=== PATIENT | female | born 1955 | race Caucasian/White ===

== ENCOUNTER 2019-03-31 12:10 | Emergency (ER) | payer OTHER ==
[~2019-03-31] VITALS: Ht 152.4 cm; Wt 54.4 kg
[~2019-03-31 12:10] MED LIST: ALPR.5 PO; AMOX500 PO; ASPI325 PO; AZIT250 PO; Aspir 8181 MG PO; Atrovent Inha12.9 GM; BUDE6HFA INH; Daily Multiple1 EACH PO; Esgic Tablet1 EACH PO; FLUSAL1005 IH; LEVA.63IS IH; LEVA.63IS INH; LISI5 PO; MEDR2.5 PO; MELATONIN 1 MG1 EACH PO; OXYACE5T PO; OXYC10ER PO; OXYC5 PO; PREG25 PO; PROM25 PO; Roxicodone5 MG PO; TRAM50 PO; Zithromax250 MG PO; Zofran Odt4 MG SL
[2019-03-31] MEDS ORDERED: METO50ER (13:13)
[2019-03-31 13:16] LABS: BASOPHILS ABSOLUTE AUTO 0.05 K/mm3 (0.00-0.23); BASOPHILS PERCENT AUTO 0 % (0-2); EOSINOPHILS PERCENT AUTO 1 % (0-6); Hematocrit 46.5 % (33.0-51.0); Hemoglobin 15.7 g/dL (11.5-16.0); IMMATURE GRAN ABSOLUTE AUTO 0.02 K/mm3 (0.00-0.10); IMMATURE GRAN PERCENT AUTO 0 % (0-1); LYMPHOCYTES ABSOLUTE AUTO 3.73 K/mm3 (0.84-5.20); LYMPHOCYTES PERCENT AUTO 33 % (21-46); MONOCYTES ABSOLUTE AUTO 1.16 K/mm3 (0.16-1.47); MONOCYTES PERCENT AUTO 10 % (4-13); Mean Corpuscular HGB Conc 33.8 g/dL (31.5-36.5); Mean Corpuscular Volume 95 fL (80-100); NEUTROPHILS PERCENT AUTO 56 % (41-73); Platelet Count 309 K/mm3 (150-400); RDW Coefficient Variation 12.7 % (11.7-14.2); RDW Standard Deviation 44.3 fL (35.1-46.3); White Blood Cell Count 11.46 K/mm3 (4.00-11.30)
[2019-03-31 13:36] LABS: Alanine Aminotransfer (ALT/SGP 26 U/L (12-78); Albumin/Globulin Ratio 0.9 (0.8-1.8); Alk Phos 93 U/L (50-136); Anion Gap 6 mmol/L (6-16); Aspartate Aminotrans (AST/SGOT 31 U/L (12-37); Bilirubin, Total 0.6 mg/dL (0.1-1.0); Blood Urea Nitrogen 7 mg/dL (8-24); Bun/Creatinine Ratio 11.2 (12.0-20.0); CO2, Blood 28 mmol/L (21-32); Calcium, Blood 9.6 mg/dL (8.5-10.1); Chloride, Blood 101 mmol/L (98-108); Creatinine, Blood 0.62 mg/dL (0.40-1.00); Globulin, Blood 4.5 g/dL (2.2-4.0); Glomerular Filtration Rate >60 (60-); Glucose, Blood 133 mg/dL (70-99); Sodium, Blood 135 mmol/L (136-145); Total Protein, Blood 8.5 g/dL (6.4-8.2)
[2019-03-31 13:39] LABS: Source, Urine Clean Catch
[2019-03-31 14:20] LABS: Bilirubin, Urine Neg (Neg); Blood, Urine 3+ (Neg); Glucose Qualitative, Urine Neg (Neg); Ketones, Urine Neg (Neg); Leukocyte Esterase, Urine 1+ (Neg); Nitrite, Urine Neg (Neg); Protein, Urine 1+ (Neg); Specific Gravity, Urine 1.015 (1.003-1.022); Urobilinogen, Urine NORM (Normal); pH, Urine 6.5 (5.0-8.0)
[2019-03-31 14:29] LABS: Appearance, Urine Clear (Clear); Color, Urine Yellow (P-Yellow)
[2019-03-31 14:30] LABS: Bacteria Few /hpf; Red Blood Cells, Urine 0-2 /hpf (0-2); Squamous Epithelial Cells Few /hpf (Few); White Blood Cells, Urine 0-2 /hpf (0-5)
== END 2019-03-31 15:24 | disposition home or self-care (01) ==
LOC: ER 12:10
PROVIDERS: Physician Assistant
DX: R11.2 Nausea with vomiting, unspecified (principal); R10.9 Unspecified abdominal pain; T50.905A Adverse effect of unspecified drugs, medicaments and biological substances, initial encounter; Z88.8 Allergy status to other drugs, medicaments and biological substances; Z79.82 Long term (current) use of aspirin; Z79.899 Other long term (current) drug therapy; J44.9 Chronic obstructive pulmonary disease, unspecified; Z86.73 Personal history of transient ischemic attack (TIA), and cerebral infarction without residual deficits; Z87.891 Personal history of nicotine dependence
CPT/HCPCS: 36415; 80053; 81001; 83690; 85025; 87086; 96374; 96375; 99283-25; J1200; J1885; J2405

== ENCOUNTER 2020-03-22 11:42 | Observation (INO) | payer OTHER ==
[~2020-03-22] VITALS: Ht 152.4 cm; Wt 56.7 kg
[~2020-03-22 11:42] MED LIST changes: +ATROVENT HFA12.9 GM INH; -Atrovent Inha12.9 GM; -BUDE6HFA INH; +METO50ER PO; +SYMBICORT 160-4.6 GM INH
[2020-03-22] MEDS ORDERED: Aspirin EC81 MG PO (11:56)
[2020-03-22] MEDS ORDERED: TRAZ50 PO ×2 (11:58→13:54)
[2020-03-22] MEDS ORDERED: Zaleplon5 MG PO (11:59)
[2020-03-22 12:36] LABS: BASOPHILS ABSOLUTE AUTO 0.07 K/mm3 (0.00-0.23); BASOPHILS PERCENT AUTO 1 % (0-2); EOSINOPHILS PERCENT AUTO 2 % (0-6); Hematocrit 45.9 % (33.0-51.0); Hemoglobin 14.9 g/dL (11.5-16.0); IMMATURE GRAN ABSOLUTE AUTO 0.02 K/mm3 (0.00-0.10); IMMATURE GRAN PERCENT AUTO 0 % (0-1); LYMPHOCYTES ABSOLUTE AUTO 4.12 K/mm3 (0.84-5.20); LYMPHOCYTES PERCENT AUTO 41 % (21-46); MONOCYTES ABSOLUTE AUTO 0.96 K/mm3 (0.16-1.47); MONOCYTES PERCENT AUTO 10 % (4-13); Mean Corpuscular HGB 30.6 pg (26.0-34.0); Mean Corpuscular HGB Conc 32.5 g/dL (31.5-36.5); Mean Corpuscular Volume 94 fL (80-100); Mean Platelet Volume 10.1 fL (9.1-12.4); NEUTROPHILS ABSOLUTE AUTO 4.69 K/mm3 (1.96-9.15); NEUTROPHILS PERCENT AUTO 47 % (41-73); Platelet Count 340 K/mm3 (150-400); RDW Coefficient Variation 13.8 % (11.7-14.2); RDW Standard Deviation 47.8 fL (35.1-46.3); Red Blood Cell Count 4.87 M/mm3 (3.80-5.20); White Blood Cell Count 10.06 K/mm3 (4.00-11.30)
[2020-03-22 12:47] LABS: Alanine Aminotransfer (ALT/SGP 24 U/L (12-78); Albumin, Blood 3.5 g/dL (3.4-5.0); Albumin/Globulin Ratio 0.8 (0.8-1.8); Alk Phos 96 U/L (50-136); Anion Gap 5 mmol/L (6-16); Aspartate Aminotrans (AST/SGOT 26 U/L (12-37); Bilirubin, Total 0.4 mg/dL (0.1-1.0); Blood Urea Nitrogen 10 mg/dL (8-24); CO2, Blood 27 mmol/L (21-32); Calcium, Blood 9.6 mg/dL (8.5-10.1); Chloride, Blood 105 mmol/L (98-108); Creatinine, Blood 0.77 mg/dL (0.40-1.00); Globulin, Blood 4.3 g/dL (2.2-4.0); Glomerular Filtration Rate >60 (60-); Glucose, Blood 123 mg/dL (70-99); Potassium, Blood 3.6 mmol/L (3.5-5.5); Sodium, Blood 137 mmol/L (136-145); Total Protein, Blood 7.8 g/dL (6.4-8.2); Troponin I <0.015 ng/mL (0.000-0.040)
[2020-03-22 18:25] LABS: U Amphetamine Screen Not Detected; U Barbituate Screen Not Detected; U Benzodiazapine Screen Not Detected; U Buprenorphine Screen Not Detected; U Cannabinoids Screen DETECTED; U Cocaine Screen Not Detected; U Methadone Screen Not Detected; U Methamphetamine Screen Not Detected; U Opiates Screen DETECTED; U Oxycodone Screen Not Detected; U Phencyclidine Screen Not Detected; U Propoxyphene Screen Not Detected
[2020-03-23 00:23] LABS: BASOPHILS ABSOLUTE AUTO 0.04 K/mm3 (0.00-0.23); BASOPHILS PERCENT AUTO 0 % (0-2); EOSINOPHILS ABSOLUTE AUTO 0.04 K/mm3 (0.00-0.68); EOSINOPHILS PERCENT AUTO 0 % (0-6); Hematocrit 42.5 % (33.0-51.0); Hemoglobin 13.9 g/dL (11.5-16.0); IMMATURE GRAN ABSOLUTE AUTO 0.02 K/mm3 (0.00-0.10); IMMATURE GRAN PERCENT AUTO 0 % (0-1); LYMPHOCYTES PERCENT AUTO 31 % (21-46); MONOCYTES ABSOLUTE AUTO 0.77 K/mm3 (0.16-1.47); MONOCYTES PERCENT AUTO 8 % (4-13); Mean Corpuscular HGB 30.8 pg (26.0-34.0); Mean Corpuscular HGB Conc 32.7 g/dL (31.5-36.5); Mean Corpuscular Volume 94 fL (80-100); NEUTROPHILS ABSOLUTE AUTO 5.74 K/mm3 (1.96-9.15); NEUTROPHILS PERCENT AUTO 60 % (41-73); Platelet Count 293 K/mm3 (150-400); RDW Standard Deviation 48.6 fL (35.1-46.3); Red Blood Cell Count 4.51 M/mm3 (3.80-5.20); White Blood Cell Count 9.51 K/mm3 (4.00-11.30)
[2020-03-23 00:41] LABS: Alanine Aminotransfer (ALT/SGP 20 U/L (12-78); Albumin, Blood 3.1 g/dL (3.4-5.0); Albumin/Globulin Ratio 0.8 (0.8-1.8); Alk Phos 86 U/L (50-136); Anion Gap 5 mmol/L (6-16); Aspartate Aminotrans (AST/SGOT 20 U/L (12-37); Bilirubin, Total 0.4 mg/dL (0.1-1.0); Blood Urea Nitrogen 10 mg/dL (8-24); CO2, Blood 27 mmol/L (21-32); Calcium, Blood 8.5 mg/dL (8.5-10.1); Chloride, Blood 107 mmol/L (98-108); Creatinine, Blood 0.67 mg/dL (0.40-1.00); Globulin, Blood 3.7 g/dL (2.2-4.0); Glomerular Filtration Rate >60 (60-); Glucose, Blood 111 mg/dL (70-99); Potassium, Blood 3.8 mmol/L (3.5-5.5); Sodium, Blood 139 mmol/L (136-145); Total Protein, Blood 6.8 g/dL (6.4-8.2)
--- NOTE | 2020-03-23 05:55 | NUR ---
SHIFT SUMMARY PT RESTING IN ROOM COMFORTABLY AT THIS TIME. NO ACUTE CHANGES IN STATUS T/O NIGHT. PT SLEPT IN SHORT PERIODS, REPORTS DOES NOT SLEEP WELL AT BASELINE. PT WAS MEDICATED FOR INSOMNIA PRIOR TO BED. RESP EVEN UNLABORED W/ MOIST COUGH ON 2L NC W/ SATS >92%. PT REPORTED SOME MUSKULOSKELETAL CP DURING NIGHT AND WAS MEDICATED PER EMAR. PT DENIED OTHER NEEDS. CALL [facility] IN REACH.
--- NOTE | 2020-03-23 18:48 | NUR ---
PCU DAYSHIFT SUMMARY (MED NO TELE STATUS) PATIENT ALERT AND ORIENTED X4 T/O SHIFT. PATIENT CEDS AT HOME ON ROOM AIR AT HOME - OXYGEN TITRATED OFF THIS SHIFT WITH RESPIRATORY THERAPY. PATIENT REPORTS CONTINUED UNDER RIB PAIN - RELIEVED WITH MEDICATION PER EAMR. PATIENT WAS TOLD ABOUT 5 MM NODULE IN LUNG TODAY BY MD SANDRA - WAS TOLD TO FOLLOW UP WITH CT IN A FEW MONTHS - THEN IF CHANGE POSSIBLE BIOPSY. PATIENT TESTED NEGATIVE FOR RAPID COVID. RESPIRATORY PANEL STILL PENDING. PATIENT INDEPENENT IN ROOM. HEART RATE 60 BPM WITH NO CARDIAC CHANGES NOTED. CALL LIGHT W/I REACH; [facility] TO NOC SHIFT RN.
[2020-03-23 20:01] LABS: Adenovirus Not Detected (NOT DETECT); Bordetella pertussis Not Detected (NOT DETECT); Chlamydophila pneumoniae Not Detected (NOT DETECT); Coronavirus 229E Not Detected (NOT DETECT); Coronavirus HKU1 Not Detected (NOT DETECT); Coronavirus NL63 Not Detected (NOT DETECT); Coronavirus OC43 Not Detected (NOT DETECT); Human Metapneumovirus Not Detected (NOT DETECT); Human Rhinovirus/Enterovirus Not Detected (NOT DETECT); Influenza A/2009-H1 Not Detected (NOT DETECT); Influenza A/H1 Not Detected (NOT DETECT); Influenza A/H3 Not Detected (NOT DETECT); Influenza B Not Detected (NOT DETECT); Mycoplasma pneumoniae Not Detected (NOT DETECT); Parainfluenza Virus 1 Not Detected (NOT DETECT); Parainfluenza Virus 2 Not Detected (NOT DETECT); Parainfluenza Virus 3 Not Detected (NOT DETECT); Parainfluenza Virus 4 Not Detected (NOT DETECT); Respiratory Syncytial Virus Not Detected (NOT DETECT)
--- NOTE | 2020-03-24 03:40 | NUR ---
SHIFT SUMMARY ASSUMED CARE OF PT AT 1900. PT IS A/OX4, DENIES N/T IN EXTREMITES. HEART SOUNDS REGULAR, LUNG SOUNDS HAVE WHEEZING T/O, PT RECEIVED BREATHING TREATMENT AND SAID THAT SHE WAS ABLE TO BREATH THE MOST SHE HAS SINCE SHE BEEN HERE, PT IS COUGHING UP YELLOW SPUTUM, DENIES SOB, BUT HER THROAT HURTS FROM COUGHING. PT IS INDEPENDENT IN ROOM AND TO THE BATHROOM. PT REQUESTS PAIN MEDICATION FREQUENTLY WHILE AWAKE. PT EDUCATED ABOUT HOW SHE WILL NOT GO HOME WITH THE IV PAIN MEDICATION. PT STATED THAT HE PAIN IS CONTROLLED BUT WITH THE IV MEDICATIONS. NO ACUTE CHANGES DURING THE NIGHT. PT SLEPT MOST OF THE NIGHT, CALL LIGHT IN REACH, BED IN LOWEST POSTION, WILL CONTINUE TO MONITOR UNTIL DAYSHIFT NURSE ARRIVES.
--- NOTE | 2020-03-24 07:34 | NUR ---
ASSUMED CARE AT 0700, REPORT FROM NGUYEN VANCE. RESTING IN BED SUPINE IN LOW FOWLERS, PLAN OF CARE REVIEWED, STATES CONTINUES TO HAVE A HEADACHE, MEDICATED BY KILN CAR REPAIRER RN WITH ULTRAM AT 0600, WILL CONTINUE TO EVALUATE FOR FURTHER MEDICATIONS.
[2020-03-24] MEDS ORDERED: AZIT500 PO (11:39)
[2020-03-24] MEDS ORDERED: IPRAT-ALBUT 0.5-3 ML INH (11:40)
[2020-03-24] MEDS ORDERED: Prednisone10 MG PO (11:53)
[2020-03-24] MEDS ORDERED: TRAM50 PO (11:54)
--- NOTE | 2020-03-24 14:53 | NUR ---
Pt. is doing well and may go home todaykvng yung encouraged pt andoffered prayers
== END 2020-03-24 14:30 | disposition home or self-care (01) ==
LOC: ER 11:42 → PCU 14:13 → ERHOLD 14:13 → PCU 16:10
PROVIDERS: Emergency Medicine; Internal Medicine; Nurse Practitioner Acute Care; ADMIT Internal Medicine
DX: J20.9 Acute bronchitis, unspecified (principal); J44.0 Chronic obstructive pulmonary disease with (acute) lower respiratory infection; J44.1 Chronic obstructive pulmonary disease with (acute) exacerbation; J96.01 Acute respiratory failure with hypoxia; R07.9 Chest pain, unspecified; R91.1 Solitary pulmonary nodule; B19.20 Unspecified viral hepatitis C without hepatic coma; Z86.73 Personal history of transient ischemic attack (TIA), and cerebral infarction without residual deficits; I10 Essential (primary) hypertension; G47.00 Insomnia, unspecified; J43.9 Emphysema, unspecified; Z11.59 Encounter for screening for other viral diseases; Z79.82 Long term (current) use of aspirin; Z79.899 Other long term (current) drug therapy; Z88.5 Allergy status to narcotic agent; Z88.6 Allergy status to analgesic agent; Z87.891 Personal history of nicotine dependence
CPT/HCPCS: 0099U; 36415; 71046; 71260; 80053; 83690; 83735; 83880; 84484; 85025; 85651; 86140; 93005; 93010; 94640; 94760; 96361; 96372; 96374; 96375; 96376; 99285-25; A9270-GY; G0378; J1170; J1650; J1885; J2405; J2550; J2920; J7030; J7512; Q9967; U0002

== ENCOUNTER 2020-03-29 22:12 | Emergency (ER) | payer OTHER ==
[~2020-03-29] VITALS: Ht 152.4 cm; Wt 56.7 kg
[~2020-03-29 22:12] MED LIST changes: +AZIT500 PO; +Aspirin EC81 MG PO; +IPRAT-ALBUT 0.5-3 ML INH; +Prednisone10 MG PO; +TRAZ50 PO; +Zaleplon5 MG PO
[2020-03-29 22:45] LABS: BASOPHILS ABSOLUTE AUTO 0.01 K/mm3 (0.00-0.23); BASOPHILS PERCENT AUTO 0 % (0-2); EOSINOPHILS ABSOLUTE AUTO 0.01 K/mm3 (0.00-0.68); EOSINOPHILS PERCENT AUTO 0 % (0-6); Hematocrit 46.3 % (33.0-51.0); Hemoglobin 15.3 g/dL (11.5-16.0); IMMATURE GRAN ABSOLUTE AUTO 0.05 K/mm3 (0.00-0.10); IMMATURE GRAN PERCENT AUTO 0 % (0-1); LYMPHOCYTES ABSOLUTE AUTO 3.06 K/mm3 (0.84-5.20); LYMPHOCYTES PERCENT AUTO 26 % (21-46); MONOCYTES ABSOLUTE AUTO 0.85 K/mm3 (0.16-1.47); MONOCYTES PERCENT AUTO 7 % (4-13); Mean Corpuscular HGB 30.4 pg (26.0-34.0); Mean Corpuscular Volume 92 fL (80-100); Mean Platelet Volume 10.7 fL (9.1-12.4); NEUTROPHILS ABSOLUTE AUTO 8.04 K/mm3 (1.96-9.15); NEUTROPHILS PERCENT AUTO 67 % (41-73); Platelet Count 312 K/mm3 (150-400); RDW Coefficient Variation 13.5 % (11.7-14.2); Red Blood Cell Count 5.04 M/mm3 (3.80-5.20); White Blood Cell Count 12.02 K/mm3 (4.00-11.30)
[2020-03-29 23:06] LABS: Alanine Aminotransfer (ALT/SGP 37 U/L (12-78); Albumin, Blood 3.7 g/dL (3.4-5.0); Albumin/Globulin Ratio 0.9 (0.8-1.8); Alk Phos 81 U/L (50-136); Anion Gap 7 mmol/L (6-16); Aspartate Aminotrans (AST/SGOT 21 U/L (12-37); Bilirubin, Total 0.2 mg/dL (0.1-1.0); Blood Urea Nitrogen 17 mg/dL (8-24); Bun/Creatinine Ratio 19.1 (12.0-20.0); CO2, Blood 29 mmol/L (21-32); Calcium, Blood 9.6 mg/dL (8.5-10.1); Chloride, Blood 102 mmol/L (98-108); Creatinine, Blood 0.89 mg/dL (0.40-1.00); Globulin, Blood 3.9 g/dL (2.2-4.0); Glomerular Filtration Rate >60 (60-); Glucose, Blood 133 mg/dL (70-99); Potassium, Blood 3.6 mmol/L (3.5-5.5); Sodium, Blood 138 mmol/L (136-145); Total Protein, Blood 7.6 g/dL (6.4-8.2); Troponin I <0.015 ng/mL (0.000-0.040)
[2020-03-30] MEDS ORDERED: Ultram50 MG PO (00:17)
== END 2020-03-30 00:41 | disposition home or self-care (01) ==
LOC: ER 22:12
PROVIDERS: Emergency Medicine
DX: R06.02 Shortness of breath (principal); Z88.5 Allergy status to narcotic agent; Z88.8 Allergy status to other drugs, medicaments and biological substances; Z79.82 Long term (current) use of aspirin; Z79.899 Other long term (current) drug therapy; J43.9 Emphysema, unspecified; Z86.73 Personal history of transient ischemic attack (TIA), and cerebral infarction without residual deficits; Z86.19 Personal history of other infectious and parasitic diseases
CPT/HCPCS: 36415; 71046; 80053; 84484; 85025; 93005; 93010; 96374; 96375; 99285-25; J2270; J2405

== ENCOUNTER 2020-06-13 21:32 | Inpatient (IN) | payer OTHER ==
[~2020-06-13] VITALS: Ht 152.4 cm; Wt 61.2 kg
[~2020-06-13 21:32] MED LIST changes: +Ultram50 MG PO
[2020-06-13 21:56] LABS: BASOPHILS ABSOLUTE AUTO 0.08 K/mm3 (0.00-0.23); BASOPHILS PERCENT AUTO 1 % (0-2); EOSINOPHILS ABSOLUTE AUTO 0.41 K/mm3 (0.00-0.68); EOSINOPHILS PERCENT AUTO 3 % (0-6); Hematocrit 45.5 % (33.0-51.0); Hemoglobin 14.7 g/dL (11.5-16.0); IMMATURE GRAN ABSOLUTE AUTO 0.04 K/mm3 (0.00-0.10); IMMATURE GRAN PERCENT AUTO 0 % (0-1); LYMPHOCYTES ABSOLUTE AUTO 5.96 K/mm3 (0.84-5.20); LYMPHOCYTES PERCENT AUTO 47 % (21-46); MONOCYTES ABSOLUTE AUTO 1.27 K/mm3 (0.16-1.47); MONOCYTES PERCENT AUTO 10 % (4-13); Mean Corpuscular HGB 30.6 pg (26.0-34.0); Mean Corpuscular HGB Conc 32.3 g/dL (31.5-36.5); Mean Corpuscular Volume 95 fL (80-100); NEUTROPHILS PERCENT AUTO 39 % (41-73); Platelet Count 297 K/mm3 (150-400); RDW Standard Deviation 49.1 fL (35.1-46.3); Red Blood Cell Count 4.81 M/mm3 (3.80-5.20); White Blood Cell Count 12.76 K/mm3 (4.00-11.30)
[2020-06-13 22:04] LABS: PCO2 Arterial 47.5 mmHg (35-45); PO2 Arterial 109 mmHg (80-100); pH Blood Arterial 7.39 (7.35-7.45)
[2020-06-13 22:11] LABS: International Normalized Ratio 1.03
[2020-06-13 22:17] LABS: Alanine Aminotransfer (ALT/SGP 23 U/L (12-78); Albumin, Blood 3.8 g/dL (3.4-5.0); Alk Phos 91 U/L (50-136); Anion Gap 6 mmol/L (6-16); Aspartate Aminotrans (AST/SGOT 25 U/L (12-37); Bilirubin, Total 0.3 mg/dL (0.1-1.0); Blood Urea Nitrogen 12 mg/dL (8-24); Bun/Creatinine Ratio 19.7 (12.0-20.0); CO2, Blood 28 mmol/L (21-32); Calcium, Blood 9.4 mg/dL (8.5-10.1); Chloride, Blood 97 mmol/L (98-108); Creatinine, Blood 0.61 mg/dL (0.40-1.00); Globulin, Blood 3.7 g/dL (2.2-4.0); Glomerular Filtration Rate >60 (60-); Glucose, Blood 126 mg/dL (70-99); Potassium, Blood 4.6 mmol/L (3.5-5.5); Sodium, Blood 131 mmol/L (136-145); Total Protein, Blood 7.5 g/dL (6.4-8.2); Troponin I <0.015 ng/mL (0.000-0.040)
[2020-06-14] MEDS ORDERED: Aspir 8181 MG PO (02:36)
[2020-06-14] MEDS ORDERED: ZOLP10 PO (02:38)
[2020-06-14 04:45] LABS: BASOPHILS ABSOLUTE AUTO 0.07 K/mm3 (0.00-0.23); BASOPHILS PERCENT AUTO 1 % (0-2); EOSINOPHILS ABSOLUTE AUTO 0.01 K/mm3 (0.00-0.68); EOSINOPHILS PERCENT AUTO 0 % (0-6); Hematocrit 46.2 % (33.0-51.0); IMMATURE GRAN ABSOLUTE AUTO 0.04 K/mm3 (0.00-0.10); IMMATURE GRAN PERCENT AUTO 0 % (0-1); LYMPHOCYTES ABSOLUTE AUTO 1.04 K/mm3 (0.84-5.20); LYMPHOCYTES PERCENT AUTO 9 % (21-46); MONOCYTES ABSOLUTE AUTO 0.36 K/mm3 (0.16-1.47); MONOCYTES PERCENT AUTO 3 % (4-13); Mean Corpuscular HGB 30.9 pg (26.0-34.0); Mean Corpuscular HGB Conc 32.5 g/dL (31.5-36.5); Mean Corpuscular Volume 95 fL (80-100); Mean Platelet Volume 9.3 fL (9.1-12.4); NEUTROPHILS ABSOLUTE AUTO 10.41 K/mm3 (1.96-9.15); NEUTROPHILS PERCENT AUTO 87 % (41-73); Platelet Count 279 K/mm3 (150-400); RDW Coefficient Variation 14.1 % (11.7-14.2); RDW Standard Deviation 48.8 fL (35.1-46.3); Red Blood Cell Count 4.86 M/mm3 (3.80-5.20); White Blood Cell Count 11.93 K/mm3 (4.00-11.30)
[2020-06-14 05:06] LABS: Alanine Aminotransfer (ALT/SGP 24 U/L (12-78); Albumin, Blood 3.8 g/dL (3.4-5.0); Albumin/Globulin Ratio 1.1 (0.8-1.8); Alk Phos 97 U/L (50-136); Anion Gap 4 mmol/L (6-16); Aspartate Aminotrans (AST/SGOT 32 U/L (12-37); Bilirubin, Total 0.6 mg/dL (0.1-1.0); Blood Urea Nitrogen 10 mg/dL (8-24); Bun/Creatinine Ratio 16.6 (12.0-20.0); CO2, Blood 29 mmol/L (21-32); Calcium, Blood 9.2 mg/dL (8.5-10.1); Chloride, Blood 100 mmol/L (98-108); Globulin, Blood 3.6 g/dL (2.2-4.0); Glomerular Filtration Rate >60 (60-); Glucose, Blood 140 mg/dL (70-99); Potassium, Blood 4.6 mmol/L (3.5-5.5); Sodium, Blood 133 mmol/L (136-145); Total Protein, Blood 7.4 g/dL (6.4-8.2)
--- NOTE | 2020-06-14 05:09 | NUR ---
POULTRY BARN MANAGER SUMMARY Dominique arrived on the floor just before 0100 this morning. She was quite anxious about the amount of shaking she was doing and wanted medication to stop it from happening. RT and this RN explained to the patient that the medication that was causing this were the multiple breathing tx and IV steroids she needed and received for her hypoxia and air hunger. A&OX4, she is pleasant and cooperative with care. about 30 minutes after her arrival, she was less tremulous and able to get oob with just a touch assist. Patient has spouse who is her caregiver at home, but also a smoker. She is also very anxious about whether or not staying in our area with is what's best for her health.
--- NOTE | 2020-06-14 16:00 | NUR ---
Per admit trigger, I met with Dominique to offer education on ACP. She forgot her glasses at home and was not really interested in learning about ACP. She took the advanced directive packet so she could talk it over with spouse once home. Dominique is very anxious about her worsening COPD. She is dissapointed that she continues to decline. She did appear to be SOB just speaking to me. She has a strong marriage and feels well cared-for by her . She accepted prayer and gentle counselor marriage and family. These interventions appeared to calm her somewhat. She may benefit from a palliative care consult for education/sysmptom management. I will remain available.
--- NOTE | 2020-06-14 19:46 | NUR ---
shift summary- bedside report completed with night rn Maame. Pt stated at the time of report she sometimes takes valium at home when she feels worked up. Pt has scheduled ambien at bedtime. Pt has been increasingly aggitated today, possibly d/t the iv steroids. PT RECIEVED A CALL FROM HER THIS AFTERNOON. SHE STATED HE WILL BE BRINGING DROP MACHINE OPERATOR PAPERS TO THE HOSPITAL FOR HER TO SIGN. THE PT BECAME NAUSEATED AFTER THAT AND HER STOMACH HAS BEEN UPSET MOST OF THE AFTERNOON. SHE SEEMS WORRIED AND STRESSED. APPARENTLY HER FATHER IN APRIL AND SHE IS SUPPOSED TO INHERIT A LARGE SUM OF MONEY, THAT IS WHAT THE PAPERS ARE FOR (STATED BY THE PT). PT SEEMS TO BE EXPERIENCING GI UPSET MORE SINCE THAT CONVERSATION. NAUSEA MEDS SEEMED EFFECTIVE UNTIL SHIFT CHANGE. WITH THE NAUSEA PT HAS MORE DIFFICULTY BREATHING.
[2020-06-15 04:48] LABS: BASOPHILS ABSOLUTE AUTO 0.03 K/mm3 (0.00-0.23); BASOPHILS PERCENT AUTO 0 % (0-2); EOSINOPHILS ABSOLUTE AUTO 0.01 K/mm3 (0.00-0.68); EOSINOPHILS PERCENT AUTO 0 % (0-6); Hematocrit 44.7 % (33.0-51.0); Hemoglobin 14.8 g/dL (11.5-16.0); IMMATURE GRAN ABSOLUTE AUTO 0.07 K/mm3 (0.00-0.10); IMMATURE GRAN PERCENT AUTO 0 % (0-1); LYMPHOCYTES ABSOLUTE AUTO 1.84 K/mm3 (0.84-5.20); LYMPHOCYTES PERCENT AUTO 11 % (21-46); MONOCYTES ABSOLUTE AUTO 0.37 K/mm3 (0.16-1.47); MONOCYTES PERCENT AUTO 2 % (4-13); Mean Corpuscular HGB 31.2 pg (26.0-34.0); Mean Corpuscular HGB Conc 33.1 g/dL (31.5-36.5); Mean Corpuscular Volume 94 fL (80-100); Mean Platelet Volume 9.5 fL (9.1-12.4); NEUTROPHILS ABSOLUTE AUTO 14.13 K/mm3 (1.96-9.15); NEUTROPHILS PERCENT AUTO 86 % (41-73); Platelet Count 278 K/mm3 (150-400); RDW Coefficient Variation 14.1 % (11.7-14.2); RDW Standard Deviation 48.5 fL (35.1-46.3); Red Blood Cell Count 4.75 M/mm3 (3.80-5.20); White Blood Cell Count 16.45 K/mm3 (4.00-11.30)
[2020-06-15 05:03] LABS: Anion Gap 6 mmol/L (6-16); Blood Urea Nitrogen 14 mg/dL (8-24); Bun/Creatinine Ratio 22.8 (12.0-20.0); CO2, Blood 26 mmol/L (21-32); Calcium, Blood 8.9 mg/dL (8.5-10.1); Chloride, Blood 101 mmol/L (98-108); Creatinine, Blood 0.62 mg/dL (0.40-1.00); Glomerular Filtration Rate >60 (60-); Glucose, Blood 133 mg/dL (70-99); Potassium, Blood 4.6 mmol/L (3.5-5.5); Sodium, Blood 133 mmol/L (136-145)
--- NOTE | 2020-06-15 05:29 | NUR ---
SHIFT SUMMARY AOX4. TELE NSR @76. PT VERY ANXIOUS @SHIFT CHANGE LAST NIGHT, REPORTED SHE FELT STRESSED R/T CURRENT HEALTH SITUATION & FAMILY SITUATION. REPORTED NAUSEA & STARTED HAVING EMESIS, STATED SHE FELT NAUSEA WAS R/T ANXIETY & FEELING WORKED UP. INFORMED DR THOMPSON & SHE ORDERED A 1X DOSE 0.5 MG IV ATIVAN & 0.5MG PO ATIVAN Q8 PRN. GAVE THE 1X DOSE ATIVAN & PT REPORTS SHE HAS FELT "BETTER" SINCE. REPORTED NAUSEA 1X AFTER ATIVAN & GAVE ZOFRAN. REPORTS 04/12 BILAT SIDE "LUNG" PAIN & MEDICATED c 50MCG FENT, STATES RELIEF. SPO2 >90% ON 2L O2. E/U RESPIRATIONS. LUNGS HAVE EXPIRATORY WHEEZES T/O. CALL LIGHT IN REACH.
--- NOTE | 2020-06-15 15:11 | NUR ---
Pt. is is in bed and doing fine prayed for her.
--- NOTE | 2020-06-15 17:37 | NUR ---
SHIFT SUMMARY PT UP TO BEDSIDE COMMODE INDEPENDENTLY. ASKING FOR PAIN MEDS REGULARLY WELL ASKING WHEN SHE CAN HAVE HER ATIVAN REGULARLY. REPORTS A POOR TO SMALL APPETITE. SOB WITH ACTIVITY. HERE TO SHORT TIME TODAY TO ATTEMPT TO HELP PT COMPLETE PERSONAL PAPERWORK BUT PT UNABLE TO COMPLETE IT DUE TO BEING UPSET AND IRRITATED WITH SPOUSE. REPORTS SHE WILL PROBABLY CHANGE TO ORAL MEDICATIONS TOMORROW.
--- NOTE | 2020-06-16 05:15 | NUR ---
SHIFT SUMMARY AOX3, REPORTS OCCASIONAL FORGETFULNESS. VSS. ASKS FREQUENTLY ABOUT WHEN "MEDS ARE DUE" INCLUDING ATIVAN, ZOFRAN, FENTANYL. MEDICATED 2X c ZOFRAN FOR NAUSEA, NO EMESIS. MEDICATED 1X c ATIVAN FOR ANXIOUSNESS. MEDICATED 2X c FENTANYL FOR 7-9/10 CHEST PAIN, WORSE c INSPIRATION/DEEP BREATHS. SPO2 >90% ON 2L O2. E/U RESPIRATIONS. LUNGS HAVE EXPIRATORY WHEEZES T/O. RECIEVING BREATHING TX & IV SOLUMEDROL. CALL LIGHT IN REACH.
--- NOTE | 2020-06-16 13:44 | NUR ---
Pt. is inn bed resting and is doing fine prayed for pt.
--- NOTE | 2020-06-16 16:39 | NUR ---
SHIFT SUMMARY PT HAS BEEN UP TO BSC SEVERAL TIMES TODAY. HAS BEEN MORE IRRITABLE TODAY THAN YESTERDAY. HAD A PHONE CALL WITH ATTORNEYS RELATED TO PERSONAL ISSUES OUTSIDE OF HEALTH CONDITION THAT HAS BEEN CAUSING INCREASED ANXIETY AND PT HAD BEEN REQUESTING IV PAIN MEDS PRIOR TO CALL "SO I CAN THINK MORE CLEARLY". ORDER WAS DC/D PRIOR TO THAT TIMES AND PT BECAME QUITE UPSET. DID GIVE HER TRAMADOL PER NEW ORDERS BUT PT REPORTED INCREASED NAUSEA. HAS STATED TODAY THAT SHE WAS INFORMED SHE COULD TAKE EXTRA FENTANYL BY THE MD AFTER A DOSE WAS GIVEN AND THEN SHE REPORTED SHE WAS TOLD THAT HYDROCODONE WOULD BE ORDERED INSTEAD OF TRAMADOL. NEITHER MD THAT HAS SEEN PT REPORTS THAT IS ACCURATE WHICH HAS BEEN DISCUSSED WITH HER. PHENERGAN GIVEN FOR ONGOING NAUSEA DUE TO ZOFRAN NOT BEING EFFECTIVE. WILL MONITER BEHAVIOR AND MOOD.
--- NOTE | 2020-06-16 17:20 | NUR ---
Spiritual care note: Second time seeing Dominique. She was visibly upset about some family issues and paperwork. She calmed considerably with theraputic listening and college and career counselor. We have an easy rapport. She tells me she feels like she is nearing end of life. She says she is "tired" of her COPD and its limitations. She statres she does not want CPR or to be intubated. "If its my time, I'm ready." She shared with me some long-kept secrets and we discussed God's ability to forgive. Spiritual direction was well recieved. BEATRIZ completed reflecting Dominique's wishes and is awaiting physician signature. Prayer for peace within family provided at Dominique's request. Palliative care consult would be beneficial.
--- NOTE | 2020-06-17 04:41 | NUR ---
SHIFT SUMMARY: VSS. AFEB. AAOX3. ABLE TO COMMUNICATE NEEDS. NOTED TO BE SOMEWHAT FORGETFUL W/REGARD TO MED TIMES. NO APPARENT ANXIETY TONIGHT. ASKING WHEN PAIN MEDS CAN BE TAKEN NEXT BUT IS NOT ASKING FOR MEDS IN ADDITION TO WHAT IS CURRENTLY ORDERED. APPEARS CALM AND RELAXED. 02 SAT 95% ON 2L VIA NC. LS TIGHT THROUGHOUT W/INSP CRACKLES AND EXP WHEEZES AUSC IN B BASES. REPORTS OCC COUGH PRODUCING YELLOW SPUTUM. NO ACUTE CONCERNS AT THIS TIME. WILL CONT TO MONITOR.
[2020-06-17] MEDS ORDERED: TRAM50 PO (11:05)
[2020-06-17] MEDS ORDERED: ATORVASTATIN CA40 M1 PO (11:06)
[2020-06-17] MEDS ORDERED: Methocarbamol500 MG PO (11:07)
[2020-06-17] MEDS ORDERED: PRED20 PO (11:08)
[2020-06-17] MEDS ORDERED: Promethazine12.5 M1 PO (11:09)
--- NOTE | 2020-06-17 13:00 | NUR ---
DISCHARGE INSTRUCTIONS COMPLETED AND DISCUSSED WITH PT EXPRESSING UNDERSTANDING. HERE WITH HER OXYGEN. PT REPORTS FEELING MUCH BETTER TODAY THAN YESTERDAY. TO CURB VIA W/C.
--- NOTE | 2020-06-17 13:54 | NUR ---
Spoke with Bedside RN Basia prior to Pt visit and discussed case. POLST also signed by . Pt to be discharged today. Pt resting in bed and is A&O. Pt denies pain at this time. Engaged in therapeutic discussion regarding advanced care planning. Educated on disease process including trajectory of disease. Discussed the importance of having routine conversations with PCP and developing multiple plans as disease process takes its coarse. Listened as Pt states feeling her COPD may becoming more advanced. She states requiring more help around the house and starting to visit the hospital more often. Answered questions and validated concerns. Provided easy to read education regarding COPD. Pt expresses appreciation of visit and reports no other concerns. Obtained copy of POLST and returned original POLST to Pt. Will deliver copy of POLST to medical records. Palliative Care will remain available.
== END 2020-06-17 12:44 | disposition home or self-care (01) | DRG 189 ==
LOC: ER 21:32 → MEDS 21:33 → ER 21:33 → MEDS 21:33
PROVIDERS: Emergency Medicine; Family Medicine; ADMIT Internal Medicine
DX: J96.21 Acute and chronic respiratory failure with hypoxia (principal); J44.1 Chronic obstructive pulmonary disease with (acute) exacerbation; F41.9 Anxiety disorder, unspecified; G47.00 Insomnia, unspecified; I10 Essential (primary) hypertension; Z86.73 Personal history of transient ischemic attack (TIA), and cerebral infarction without residual deficits; Z87.891 Personal history of nicotine dependence; Z99.81 Dependence on supplemental oxygen; B18.2 Chronic viral hepatitis C
CPT/HCPCS: 36415; 36600; 71045; 80048; 80053; 82803; 84484; 85025; 85610; 93005; 93010; 94640; 94644; 94667; 94760; 96374; 96375; 96376; 97110; 97116; 97162; 99285-25; A9270-GY; J1650; J2060; J2405; J2930; J3010; J7512; Q2038

== ENCOUNTER 2020-06-21 09:44 | Inpatient (IN) | payer OTHER ==
[~2020-06-21] VITALS: Ht 152.4 cm; Wt 61.1 kg
[~2020-06-21 09:44] MED LIST changes: +ATORVASTATIN CA40 M1 PO; +Methocarbamol500 MG PO; +PRED20 PO; +Promethazine12.5 M1 PO; +ZOLP10 PO
[2020-06-21 10:25] LABS: BASOPHILS ABSOLUTE AUTO 0.02 K/mm3 (0.00-0.23); BASOPHILS PERCENT AUTO 0 % (0-2); EOSINOPHILS ABSOLUTE AUTO 0.14 K/mm3 (0.00-0.68); EOSINOPHILS PERCENT AUTO 1 % (0-6); Hematocrit 50.8 % (33.0-51.0); Hemoglobin 16.6 g/dL (11.5-16.0); IMMATURE GRAN ABSOLUTE AUTO 0.09 K/mm3 (0.00-0.10); IMMATURE GRAN PERCENT AUTO 1 % (0-1); LYMPHOCYTES ABSOLUTE AUTO 6.96 K/mm3 (0.84-5.20); LYMPHOCYTES PERCENT AUTO 40 % (21-46); MONOCYTES ABSOLUTE AUTO 1.49 K/mm3 (0.16-1.47); MONOCYTES PERCENT AUTO 9 % (4-13); Mean Corpuscular HGB 30.5 pg (26.0-34.0); Mean Corpuscular HGB Conc 32.7 g/dL (31.5-36.5); Mean Corpuscular Volume 93 fL (80-100); Mean Platelet Volume 9.9 fL (9.1-12.4); NEUTROPHILS ABSOLUTE AUTO 8.92 K/mm3 (1.96-9.15); NEUTROPHILS PERCENT AUTO 51 % (41-73); Platelet Count 373 K/mm3 (150-400); RDW Coefficient Variation 13.7 % (11.7-14.2); RDW Standard Deviation 47.4 fL (35.1-46.3); Red Blood Cell Count 5.44 M/mm3 (3.80-5.20); White Blood Cell Count 17.62 K/mm3 (4.00-11.30)
[2020-06-21 10:38] LABS: Alanine Aminotransfer (ALT/SGP 41 U/L (12-78); Albumin, Blood 3.6 g/dL (3.4-5.0); Alk Phos 75 U/L (50-136); Anion Gap 7 mmol/L (6-16); Aspartate Aminotrans (AST/SGOT 31 U/L (12-37); Bilirubin, Total 0.7 mg/dL (0.1-1.0); Blood Urea Nitrogen 10 mg/dL (8-24); Bun/Creatinine Ratio 14.3 (12.0-20.0); CO2, Blood 27 mmol/L (21-32); Calcium, Blood 9.1 mg/dL (8.5-10.1); Chloride, Blood 104 mmol/L (98-108); Globulin, Blood 3.6 g/dL (2.2-4.0); Glomerular Filtration Rate >60 (60-); Glucose, Blood 109 mg/dL (70-99); Potassium, Blood 3.7 mmol/L (3.5-5.5); Sodium, Blood 138 mmol/L (136-145); Total Protein, Blood 7.2 g/dL (6.4-8.2)
[2020-06-21] MEDS ORDERED: SPIRIVA RESPIMAT4 G3 INH (14:04)
[2020-06-22 04:42] LABS: Hematocrit 45.7 % (33.0-51.0); Hemoglobin 14.9 g/dL (11.5-16.0); Mean Corpuscular HGB 30.8 pg (26.0-34.0); Mean Corpuscular HGB Conc 32.6 g/dL (31.5-36.5); Mean Corpuscular Volume 94 fL (80-100); Mean Platelet Volume 10.1 fL (9.1-12.4); Platelet Count 327 K/mm3 (150-400); RDW Coefficient Variation 13.7 % (11.7-14.2); RDW Standard Deviation 48.2 fL (35.1-46.3); Red Blood Cell Count 4.84 M/mm3 (3.80-5.20); White Blood Cell Count 12.77 K/mm3 (4.00-11.30)
[2020-06-22 04:59] LABS: Anion Gap 7 mmol/L (6-16); Blood Urea Nitrogen 18 mg/dL (8-24); Bun/Creatinine Ratio 26.8 (12.0-20.0); CO2, Blood 26 mmol/L (21-32); Chloride, Blood 104 mmol/L (98-108); Creatinine, Blood 0.67 mg/dL (0.40-1.00); Glomerular Filtration Rate >60 (60-); Glucose, Blood 144 mg/dL (70-99); Sodium, Blood 137 mmol/L (136-145)
[2020-06-23] MEDS ORDERED: IBUP400 PO (11:02)
[2020-06-23] MEDS ORDERED: Atarax10 MG PO (11:02)
[2020-06-23] MEDS ORDERED: PANT20 PO (11:02)
[2020-06-23] MEDS ORDERED: Prednisone10 MG (11:04)
== END 2020-06-23 11:58 | disposition home or self-care (01) | DRG 192 ==
LOC: ER 09:44 → MEDS 11:37
PROVIDERS: Emergency Medicine; ADMIT Internal Medicine
DX: J43.9 Emphysema, unspecified (principal); G47.00 Insomnia, unspecified; I10 Essential (primary) hypertension; I48.91 Unspecified atrial fibrillation; Z86.73 Personal history of transient ischemic attack (TIA), and cerebral infarction without residual deficits; F41.9 Anxiety disorder, unspecified; Z87.891 Personal history of nicotine dependence
CPT/HCPCS: 36415; 71045; 80048; 80053; 85025; 85027; 93005; 93010; 94640; 94644; 94664; 94667; 94760; 96374; 98960; 99285-25; A9270-GY; C9113; J1650; J1885; J2405; J2930; J3010

== ENCOUNTER 2020-09-26 11:36 | Emergency (ER) | payer MEDICARE ==
[~2020-09-26] VITALS: Ht 152.4 cm; Wt 61.7 kg
[~2020-09-26 11:36] MED LIST changes: +Atarax10 MG PO; +IBUP400 PO; +PANT20 PO; +Prednisone10 MG; +SPIRIVA RESPIMAT4 G3 INH
[2020-09-26 12:00] LABS: BASOPHILS ABSOLUTE AUTO 0.06 K/mm3 (0.00-0.23); BASOPHILS PERCENT AUTO 1 % (0-2); EOSINOPHILS ABSOLUTE AUTO 0.32 K/mm3 (0.00-0.68); EOSINOPHILS PERCENT AUTO 4 % (0-6); Hematocrit 42.3 % (33.0-51.0); Hemoglobin 13.6 g/dL (11.5-16.0); IMMATURE GRAN ABSOLUTE AUTO 0.02 K/mm3 (0.00-0.10); IMMATURE GRAN PERCENT AUTO 0 % (0-1); LYMPHOCYTES ABSOLUTE AUTO 3.63 K/mm3 (0.84-5.20); LYMPHOCYTES PERCENT AUTO 41 % (21-46); MONOCYTES PERCENT AUTO 10 % (4-13); Mean Corpuscular HGB 30.9 pg (26.0-34.0); Mean Corpuscular HGB Conc 32.2 g/dL (31.5-36.5); Mean Corpuscular Volume 96 fL (80-100); Mean Platelet Volume 10.1 fL (9.1-12.4); NEUTROPHILS ABSOLUTE AUTO 3.99 K/mm3 (1.96-9.15); NEUTROPHILS PERCENT AUTO 45 % (41-73); Platelet Count 302 K/mm3 (150-400); RDW Coefficient Variation 14.7 % (11.7-14.2); RDW Standard Deviation 52.2 fL (35.1-46.3); White Blood Cell Count 8.92 K/mm3 (4.00-11.30)
[2020-09-26 12:22] LABS: Alanine Aminotransfer (ALT/SGP 26 U/L (12-78); Albumin, Blood 3.6 g/dL (3.4-5.0); Albumin/Globulin Ratio 0.9 (0.8-1.8); Alk Phos 91 U/L (50-136); Anion Gap 4 mmol/L (6-16); Aspartate Aminotrans (AST/SGOT 25 U/L (12-37); Bilirubin, Total 0.4 mg/dL (0.1-1.0); Blood Urea Nitrogen 9 mg/dL (8-24); Bun/Creatinine Ratio 13.8 (12.0-20.0); CO2, Blood 29 mmol/L (21-32); Calcium, Blood 9.1 mg/dL (8.5-10.1); Chloride, Blood 103 mmol/L (98-108); Creatinine, Blood 0.65 mg/dL (0.40-1.00); Globulin, Blood 3.9 g/dL (2.2-4.0); Glomerular Filtration Rate >60 (60-); Glucose, Blood 101 mg/dL (70-99); Sodium, Blood 136 mmol/L (136-145); Total Protein, Blood 7.5 g/dL (6.4-8.2); Troponin I <0.015 ng/mL (0.000-0.040)
[2020-09-26 12:49] LABS: Influenza A, PCR Negative (NEGATIVE); Influenza B, PCR Negative (NEGATIVE); Resp Syncytial Virus, PCR Negative (NEGATIVE); SARS-Cov-2 (COVID-19) PCR, MMC Negative (NEGATIVE)
[2020-09-26 12:52] LABS: Base Excess Venous 5.8 mmol/L; Bicarbonate Venous 28.6 mmol/L (24.0-30.0); PCO2 Venous 51.4 mmHg (38-42); PO2 Venous 108 mmHg (38-42); pH Blood Venous 7.39 (7.34-7.37)
[2020-09-26] MEDS ORDERED: Prednisone20 MG PO (13:05)
[2020-09-26] MEDS ORDERED: Roxicodone5 MG PO (13:05)
[2020-12-14] MEDS ORDERED: Aspir 8181 MG PO (11:59)
[2020-12-30] MEDS ORDERED: AMOCLA875 PO (05:42)
[2021-03-21] MEDS ORDERED: PRED20 PO (13:33)
== END 2020-09-26 13:22 | disposition home or self-care (01) ==
LOC: ER 11:36
PROVIDERS: Emergency Medicine
DX: J44.1 Chronic obstructive pulmonary disease with (acute) exacerbation (principal); Z20.822 Contact with and (suspected) exposure to COVID-19; Z79.82 Long term (current) use of aspirin; Z79.51 Long term (current) use of inhaled steroids; Z79.899 Other long term (current) drug therapy; Z86.73 Personal history of transient ischemic attack (TIA), and cerebral infarction without residual deficits; Z88.6 Allergy status to analgesic agent; Z88.8 Allergy status to other drugs, medicaments and biological substances
CPT/HCPCS: 0241U; 36415; 71045; 80053; 82803; 83880; 84484; 85025; 93005; 93010; 94640; 96374; 96375; 99285-25; J2930; J3010

== ENCOUNTER 2020-11-27 07:53 | Emergency (ER) | payer MEDICARE ==
[~2020-11-27] VITALS: Ht 152.4 cm; Wt 65.3 kg
[~2020-11-27 07:53] MED LIST changes: +Prednisone20 MG PO
[2020-11-27] MEDS ORDERED: OMEP20ER PO (08:05)
[2020-11-27] MEDS ORDERED: Zaleplon5 MG PO (08:05)
[2020-11-27] MEDS ORDERED: CLON.5 PO (08:05)
[2020-11-27 08:12] LABS: BASOPHILS ABSOLUTE AUTO 0.02 K/mm3 (0.00-0.23); BASOPHILS PERCENT AUTO 0 % (0-2); EOSINOPHILS ABSOLUTE AUTO 0.16 K/mm3 (0.00-0.68); EOSINOPHILS PERCENT AUTO 1 % (0-6); Hematocrit 41.2 % (33.0-51.0); Hemoglobin 13.1 g/dL (11.5-16.0); IMMATURE GRAN ABSOLUTE AUTO 0.09 K/mm3 (0.00-0.10); IMMATURE GRAN PERCENT AUTO 1 % (0-1); LYMPHOCYTES ABSOLUTE AUTO 2.97 K/mm3 (0.84-5.20); LYMPHOCYTES PERCENT AUTO 21 % (21-46); MONOCYTES ABSOLUTE AUTO 0.74 K/mm3 (0.16-1.47); MONOCYTES PERCENT AUTO 5 % (4-13); Mean Corpuscular HGB 30.2 pg (26.0-34.0); Mean Corpuscular HGB Conc 31.8 g/dL (31.5-36.5); Mean Corpuscular Volume 95 fL (80-100); Mean Platelet Volume 9.6 fL (9.1-12.4); NEUTROPHILS ABSOLUTE AUTO 10.27 K/mm3 (1.96-9.15); NEUTROPHILS PERCENT AUTO 72 % (41-73); Platelet Count 340 K/mm3 (150-400); RDW Coefficient Variation 13.5 % (11.7-14.2); RDW Standard Deviation 47.8 fL (35.1-46.3); Red Blood Cell Count 4.34 M/mm3 (3.80-5.20); White Blood Cell Count 14.25 K/mm3 (4.00-11.30)
[2020-11-27 08:32] LABS: Alanine Aminotransfer (ALT/SGP 28 U/L (12-78); Albumin, Blood 3.4 g/dL (3.4-5.0); Albumin/Globulin Ratio 1.1 (0.8-1.8); Alk Phos 49 U/L (50-136); Anion Gap 4 mmol/L (6-16); Aspartate Aminotrans (AST/SGOT 16 U/L (12-37); Bilirubin, Total 0.2 mg/dL (0.1-1.0); Blood Urea Nitrogen 13 mg/dL (8-24); Bun/Creatinine Ratio 16.1 (12.0-20.0); CO2, Blood 33 mmol/L (21-32); Calcium, Blood 9.2 mg/dL (8.5-10.1); Chloride, Blood 100 mmol/L (98-108); Creatinine, Blood 0.81 mg/dL (0.40-1.00); Globulin, Blood 3.2 g/dL (2.2-4.0); Glomerular Filtration Rate >60 (60-); Glucose, Blood 114 mg/dL (70-99); Potassium, Blood 3.9 mmol/L (3.5-5.5); Sodium, Blood 137 mmol/L (136-145); Total Protein, Blood 6.6 g/dL (6.4-8.2); Troponin I <0.015 ng/mL (0.000-0.040)
[2020-11-27] MEDS ORDERED: TRAM50 PO (09:34)
[2020-11-27] MEDS ORDERED: AZIT250 PO (09:34)
[2020-11-27] MEDS ORDERED: PRED20 PO (09:34)
[2020-11-27] MEDS ORDERED: NYSTATIN100000 UN1 MT (09:42)
[2020-12-14] MEDS ORDERED: Aspir 8181 MG PO (11:59)
[2020-12-30] MEDS ORDERED: AMOCLA875 PO (05:42)
[2021-03-21] MEDS ORDERED: PRED20 PO (13:33)
== END 2020-11-27 10:00 | disposition home or self-care (01) ==
LOC: ER 07:53
PROVIDERS: Emergency Medicine
DX: J44.0 Chronic obstructive pulmonary disease with (acute) lower respiratory infection (principal); J18.9 Pneumonia, unspecified organism; Z88.6 Allergy status to analgesic agent; Z88.8 Allergy status to other drugs, medicaments and biological substances; Z79.82 Long term (current) use of aspirin; Z79.899 Other long term (current) drug therapy; Z79.52 Long term (current) use of systemic steroids
CPT/HCPCS: 71045; 80053; 84484; 85025; 93005; 93010; 94640; 96365; 96375; 99285-25; A9270; J0696; J2405; J2930; J3010

== ENCOUNTER 2020-12-01 06:38 | Emergency (ER) | payer MEDICARE ==
[~2020-12-01] VITALS: Ht 152.4 cm; Wt 64.4 kg
[~2020-12-01 06:38] MED LIST changes: +CLON.5 PO; +NYSTATIN100000 UN1 MT; +OMEP20ER PO
[2020-12-01 07:09] LABS: BASOPHILS ABSOLUTE AUTO 0.01 K/mm3 (0.00-0.23); BASOPHILS PERCENT AUTO 0 % (0-2); EOSINOPHILS ABSOLUTE AUTO 0.06 K/mm3 (0.00-0.68); EOSINOPHILS PERCENT AUTO 1 % (0-6); Hemoglobin 13.4 g/dL (11.5-16.0); IMMATURE GRAN ABSOLUTE AUTO 0.09 K/mm3 (0.00-0.10); IMMATURE GRAN PERCENT AUTO 1 % (0-1); LYMPHOCYTES ABSOLUTE AUTO 1.56 K/mm3 (0.84-5.20); LYMPHOCYTES PERCENT AUTO 13 % (21-46); MONOCYTES ABSOLUTE AUTO 0.45 K/mm3 (0.16-1.47); MONOCYTES PERCENT AUTO 4 % (4-13); Mean Corpuscular HGB Conc 31.9 g/dL (31.5-36.5); Mean Corpuscular Volume 94 fL (80-100); Mean Platelet Volume 9.7 fL (9.1-12.4); NEUTROPHILS ABSOLUTE AUTO 9.67 K/mm3 (1.96-9.15); NEUTROPHILS PERCENT AUTO 82 % (41-73); Platelet Count 333 K/mm3 (150-400); RDW Coefficient Variation 13.2 % (11.7-14.2); RDW Standard Deviation 46.2 fL (35.1-46.3); Red Blood Cell Count 4.46 M/mm3 (3.80-5.20); White Blood Cell Count 11.84 K/mm3 (4.00-11.30)
[2020-12-01 07:32] LABS: Alanine Aminotransfer (ALT/SGP 40 U/L (12-78); Albumin, Blood 3.3 g/dL (3.4-5.0); Alk Phos 48 U/L (50-136); Anion Gap 2 mmol/L (6-16); Aspartate Aminotrans (AST/SGOT 24 U/L (12-37); Bilirubin, Total 0.3 mg/dL (0.1-1.0); Blood Urea Nitrogen 15 mg/dL (8-24); Bun/Creatinine Ratio 22.4 (12.0-20.0); CO2, Blood 37 mmol/L (21-32); Calcium, Blood 8.9 mg/dL (8.5-10.1); Chloride, Blood 96 mmol/L (98-108); Creatinine, Blood 0.67 mg/dL (0.40-1.00); Globulin, Blood 3.4 g/dL (2.2-4.0); Glomerular Filtration Rate >60 (60-); Glucose, Blood 134 mg/dL (70-99); Potassium, Blood 3.9 mmol/L (3.5-5.5); Sodium, Blood 135 mmol/L (136-145); Total Protein, Blood 6.7 g/dL (6.4-8.2); Troponin I <0.015 ng/mL (0.000-0.040)
[2020-12-01] MEDS ORDERED: TRAM50 PO (09:32)
[2020-12-01] MEDS ORDERED: PRED20 PO (09:32)
[2020-12-14] MEDS ORDERED: Aspir 8181 MG PO (11:59)
[2020-12-30] MEDS ORDERED: AMOCLA875 PO (05:42)
[2021-03-21] MEDS ORDERED: PRED20 PO (13:33)
== END 2020-12-01 09:54 | disposition home or self-care (01) ==
LOC: ER 06:38
PROVIDERS: Emergency Medicine
DX: J44.1 Chronic obstructive pulmonary disease with (acute) exacerbation (principal); I10 Essential (primary) hypertension; Z79.82 Long term (current) use of aspirin; Z79.51 Long term (current) use of inhaled steroids; Z79.899 Other long term (current) drug therapy; Z88.6 Allergy status to analgesic agent; Z88.8 Allergy status to other drugs, medicaments and biological substances
CPT/HCPCS: 36415; 71045; 80053; 83880; 84484; 85025; 93005; 93010; 94644; 96365; 96366; 96375; 99285-25; J2405; J2930; J3010; J3475

== ENCOUNTER 2020-12-07 08:06 | Emergency (ER) | payer MEDICARE ==
[~2020-12-07] VITALS: Ht 152.4 cm; Wt 63.5 kg
[2020-12-07 08:44] LABS: BASOPHILS ABSOLUTE AUTO 0.01 K/mm3 (0.00-0.23); BASOPHILS PERCENT AUTO 0 % (0-2); EOSINOPHILS ABSOLUTE AUTO 0.01 K/mm3 (0.00-0.68); EOSINOPHILS PERCENT AUTO 0 % (0-6); Hematocrit 38.7 % (33.0-51.0); Hemoglobin 12.7 g/dL (11.5-16.0); IMMATURE GRAN ABSOLUTE AUTO 0.08 K/mm3 (0.00-0.10); IMMATURE GRAN PERCENT AUTO 1 % (0-1); LYMPHOCYTES PERCENT AUTO 5 % (21-46); MONOCYTES ABSOLUTE AUTO 0.31 K/mm3 (0.16-1.47); MONOCYTES PERCENT AUTO 2 % (4-13); Mean Corpuscular HGB 30.5 pg (26.0-34.0); Mean Corpuscular HGB Conc 32.8 g/dL (31.5-36.5); Mean Corpuscular Volume 93 fL (80-100); NEUTROPHILS PERCENT AUTO 92 % (41-73); Platelet Count 298 K/mm3 (150-400); RDW Coefficient Variation 13.6 % (11.7-14.2); RDW Standard Deviation 46.1 fL (35.1-46.3); Red Blood Cell Count 4.16 M/mm3 (3.80-5.20); White Blood Cell Count 13.11 K/mm3 (4.00-11.30)
[2020-12-07 09:04] LABS: Alanine Aminotransfer (ALT/SGP 39 U/L (12-78); Albumin, Blood 3.5 g/dL (3.4-5.0); Albumin/Globulin Ratio 1.1 (0.8-1.8); Alk Phos 47 U/L (50-136); Anion Gap 4 mmol/L (6-16); Aspartate Aminotrans (AST/SGOT 27 U/L (12-37); Bilirubin, Total 0.3 mg/dL (0.1-1.0); Blood Urea Nitrogen 14 mg/dL (8-24); Bun/Creatinine Ratio 17.9 (12.0-20.0); CO2, Blood 31 mmol/L (21-32); Calcium, Blood 9.1 mg/dL (8.5-10.1); Chloride, Blood 100 mmol/L (98-108); Creatinine, Blood 0.78 mg/dL (0.40-1.00); Globulin, Blood 3.3 g/dL (2.2-4.0); Glomerular Filtration Rate >60 (60-); Glucose, Blood 177 mg/dL (70-99); Sodium, Blood 135 mmol/L (136-145); Total Protein, Blood 6.8 g/dL (6.4-8.2)
[2020-12-07] MEDS ORDERED: GUAI600T33 PO (11:15)
[2020-12-07] MEDS ORDERED: ATROVENT HFA12.9 GM INH (11:15)
[2020-12-07] MEDS ORDERED: OXAYDO5 M1 PO (12:02)
[2020-12-14] MEDS ORDERED: Aspir 8181 MG PO (11:59)
[2020-12-30] MEDS ORDERED: AMOCLA875 PO (05:42)
[2021-03-21] MEDS ORDERED: PRED20 PO (13:33)
== END 2020-12-07 12:01 | disposition home or self-care (01) ==
LOC: ER 08:06
PROVIDERS: Emergency Medicine
DX: J44.1 Chronic obstructive pulmonary disease with (acute) exacerbation (principal); K74.60 Unspecified cirrhosis of liver
CPT/HCPCS: 36415; 71045; 71260; 80053; 83880; 84484; 85025; 93005; 93010; 94640; 94644; 96374-59; 96375; 99285-25; J2270; J2405; J2930; Q9967

== ENCOUNTER 2020-12-09 08:47 | Inpatient (IN) | payer MEDICARE ==
[~2020-12-09] VITALS: Ht 152.4 cm; Wt 63.5 kg
[~2020-12-09 08:47] MED LIST changes: +GUAI600T33 PO; +OXAYDO5 M1 PO
[2020-12-09 09:34] LABS: BASOPHILS ABSOLUTE AUTO 0.02 K/mm3 (0.00-0.23); BASOPHILS PERCENT AUTO 0 % (0-2); EOSINOPHILS ABSOLUTE AUTO 0.02 K/mm3 (0.00-0.68); EOSINOPHILS PERCENT AUTO 0 % (0-6); Hematocrit 40.4 % (33.0-51.0); Hemoglobin 13.2 g/dL (11.5-16.0); IMMATURE GRAN ABSOLUTE AUTO 0.07 K/mm3 (0.00-0.10); IMMATURE GRAN PERCENT AUTO 1 % (0-1); LYMPHOCYTES ABSOLUTE AUTO 2.41 K/mm3 (0.84-5.20); LYMPHOCYTES PERCENT AUTO 17 % (21-46); MONOCYTES ABSOLUTE AUTO 1.49 K/mm3 (0.16-1.47); MONOCYTES PERCENT AUTO 11 % (4-13); Mean Corpuscular HGB 30.5 pg (26.0-34.0); Mean Corpuscular HGB Conc 32.7 g/dL (31.5-36.5); Mean Corpuscular Volume 93 fL (80-100); Mean Platelet Volume 10.2 fL (9.1-12.4); NEUTROPHILS ABSOLUTE AUTO 10.02 K/mm3 (1.96-9.15); NEUTROPHILS PERCENT AUTO 72 % (41-73); Platelet Count 298 K/mm3 (150-400); RDW Coefficient Variation 13.5 % (11.7-14.2); RDW Standard Deviation 46.1 fL (35.1-46.3); Red Blood Cell Count 4.33 M/mm3 (3.80-5.20); White Blood Cell Count 14.03 K/mm3 (4.00-11.30)
[2020-12-09 09:58] LABS: Alanine Aminotransfer (ALT/SGP 42 U/L (12-78); Albumin, Blood 3.6 g/dL (3.4-5.0); Albumin/Globulin Ratio 1.2 (0.8-1.8); Alk Phos 50 U/L (50-136); Anion Gap 4 mmol/L (6-16); Aspartate Aminotrans (AST/SGOT 27 U/L (12-37); Bilirubin, Total 0.5 mg/dL (0.1-1.0); Blood Urea Nitrogen 14 mg/dL (8-24); Bun/Creatinine Ratio 14.8 (12.0-20.0); CO2, Blood 33 mmol/L (21-32); Calcium, Blood 9.5 mg/dL (8.5-10.1); Chloride, Blood 102 mmol/L (98-108); Creatinine, Blood 0.95 mg/dL (0.40-1.00); Globulin, Blood 3.1 g/dL (2.2-4.0); Glomerular Filtration Rate >60 (60-); Glucose, Blood 145 mg/dL (70-99); Sodium, Blood 139 mmol/L (136-145); Total Protein, Blood 6.7 g/dL (6.4-8.2); Troponin I 0.051 ng/mL (0.000-0.040)
[2020-12-09] MEDS ORDERED: LATANOPROST2.5 M3 BOTHEYES (11:54)
[2020-12-09] MEDS ORDERED: BUDESONIDE-FO10.2 G2 INH (11:54)
[2020-12-09] MEDS ORDERED: OMEP20ER PO (11:54)
[2020-12-09] MEDS ORDERED: METO50ER PO (11:54)
[2020-12-09] MEDS ORDERED: KLONOPIN0.5 M1 PO (11:55)
[2020-12-09] MEDS ORDERED: SPIRIVA RESPIMAT4 G3 INH (11:55)
[2020-12-09] MEDS ORDERED: ATROVENT HFA12.9 GM INH (11:58)
[2020-12-09] MEDS ORDERED: Ventolin/Prove6.7 GM INH (12:00)
[2020-12-09 12:04] LABS: Bicarbonate Venous 32.8 mmol/L (24.0-30.0); PCO2 Venous 42.7 mmHg (38-42); PO2 Venous 169 mmHg (38-42)
--- NOTE | 2020-12-09 17:58 | NUR ---
PT RESTING IN BED EATING DINNER AND PM MEDICATION ADMIN. PT MAKES NO COMPLAINTS OF SOB OR CHEST PAIN AT THIS TIME. PT IS ALER AND ORIETED X4, LABILE AND TANGENTIAL. IV LINE RUNNING AND WNL. PT WAS STARTED ON ABT TX THIS SHIFT. BED IN LO POSITION AND CALL LIGHT WITHIN REACH.
[2020-12-10 05:27] LABS: Hematocrit 38.8 % (33.0-51.0); Hemoglobin 12.4 g/dL (11.5-16.0); Mean Corpuscular Volume 94 fL (80-100); Mean Platelet Volume 10.2 fL (9.1-12.4); Platelet Count 287 K/mm3 (150-400); RDW Coefficient Variation 13.5 % (11.7-14.2); RDW Standard Deviation 46.1 fL (35.1-46.3); Red Blood Cell Count 4.14 M/mm3 (3.80-5.20); White Blood Cell Count 14.05 K/mm3 (4.00-11.30)
--- NOTE | 2020-12-10 05:59 | NUR ---
POULTRY FARMER SUMMARY NO ACUTE CHANGES THIS SHIFT. PT AAOX4 AND PLEASANT. REMAINS ON 3L O2 VIA NC WHICH IS BASELINE. SOLUMEDROL Q6 PER EMAR. SOME WHEEZING NOTED ON EXPIRATION/INSPIRATION. GIVEN TORADOL X1 FOR CHRONIC PAIN. VSS, WILL CONTINUE TO MONITOR.
[2020-12-10 06:28] LABS: Anion Gap 4 mmol/L (6-16); Blood Urea Nitrogen 17 mg/dL (8-24); Bun/Creatinine Ratio 22.4 (12.0-20.0); CO2, Blood 31 mmol/L (21-32); Calcium, Blood 8.8 mg/dL (8.5-10.1); Chloride, Blood 103 mmol/L (98-108); Creatinine, Blood 0.76 mg/dL (0.40-1.00); Glomerular Filtration Rate >60 (60-); Glucose, Blood 205 mg/dL (70-99); Potassium, Blood 3.6 mmol/L (3.5-5.5); Sodium, Blood 138 mmol/L (136-145)
[2020-12-10 15:13] LABS: U Amphetamine Screen Not Detected; U Barbituate Screen Not Detected; U Benzodiazapine Screen Not Detected; U Buprenorphine Screen Not Detected; U Cannabinoids Screen Not Detected; U Cocaine Screen Not Detected; U Methadone Screen Not Detected; U Methamphetamine Screen Not Detected; U Opiates Screen Not Detected; U Oxycodone Screen Not Detected; U Phencyclidine Screen Not Detected; U Propoxyphene Screen Not Detected
--- NOTE | 2020-12-10 15:50 | NUR ---
SHIFT SUMMARY PT A&OX4, ABLE TO MAKE NEEDS KNOWN. PLEASANT AND COOPERATIVE TO CARE. PT MEDICATED FOR PAIN PER EMAR. NO C/O CP OR N&V. PT ON 3LPM O2 VIA NC, SATS >92%. WHEEZING NOTED DURING EXPIRATION AND INSPIRATION. PT CONT TO RECEIVE SOLUMEDROL Q6 PER EMAR. NO ACUTE CHANGES NOTED TO PT THIS SHIFT. BED AT LOWEST POSITION. CALL LIGHT WITHIN REACH.
--- NOTE | 2020-12-10 17:29 | NUR ---
Dominique (Pt) is known to this technical proposal writer from previous visits. Dominique is resting in bed upon arrival. She reports 7/10 pain in her throat stating due to thrush. Dominique reports dyspnea has improved since being admitted the hospital. Engaged in therapeutic listening as Dominique discusses events leading up this hospital stay. She reports thinking her exacerbation may be related to the fine particles floating around from her house falling off the foundation. Continued therapeutic listening as [place] Continued therapeutic listening and answered questions. Discussed the use of hurricane spray if appropriate to assist with discomfort in her throat. Dominique is agreeable. Dominique expresses appreciation of visit and reports no other concerns at this time. Spoke with Dr Escudero and discussed case. Placed order for hurricane spray 4 times a day PRN per V/O from Dr Escudero. Palliative Care will remain available.
--- NOTE | 2020-12-11 01:54 | NUR ---
HAS BEEN DRINKING GO LYTELY ALL PM (SEE MAR), AND IS CURRENTLY NPO FOR PROCEDURE IN THE AM. CALL LIGHT IN REACH
--- NOTE | 2020-12-11 01:58 | NUR ---
HAS BEEN ASSISTED TO BEDSIDE COMMODE TO VOID. O2 PER NC, MEDICATED FOR PAIN - SEE MAR FOR DETAILS. CALL LIGHT IN REACH. CURRENTLY IS RESTING QUIETLY
--- NOTE | 2020-12-11 04:15 | NUR ---
SHIFT SUMMARY HAS BEEN AWAKE AT TIMES WITH C/O PAIN, RESP TREATMENTS AND FOR MEDICATIONS FOR HIGH BP - SEE DOC FLOW SHEETS AND CORRELATING MEDS ON NOV FOR DETAILS. CALL LIGHT IN REACH. O2 PER NC. WILL CONTINUE TO MONITOR.
[2020-12-11 05:19] LABS: BASOPHILS ABSOLUTE AUTO 0.03 K/mm3 (0.00-0.23); BASOPHILS PERCENT AUTO 0 % (0-2); EOSINOPHILS PERCENT AUTO 0 % (0-6); Hematocrit 38.3 % (33.0-51.0); Hemoglobin 12.6 g/dL (11.5-16.0); IMMATURE GRAN ABSOLUTE AUTO 0.18 K/mm3 (0.00-0.10); IMMATURE GRAN PERCENT AUTO 1 % (0-1); LYMPHOCYTES ABSOLUTE AUTO 0.99 K/mm3 (0.84-5.20); LYMPHOCYTES PERCENT AUTO 5 % (21-46); MONOCYTES ABSOLUTE AUTO 0.39 K/mm3 (0.16-1.47); MONOCYTES PERCENT AUTO 2 % (4-13); Mean Corpuscular HGB Conc 32.9 g/dL (31.5-36.5); Mean Corpuscular Volume 94 fL (80-100); NEUTROPHILS ABSOLUTE AUTO 19.66 K/mm3 (1.96-9.15); NEUTROPHILS PERCENT AUTO 93 % (41-73); Platelet Count 291 K/mm3 (150-400); RDW Coefficient Variation 13.5 % (11.7-14.2); RDW Standard Deviation 46.2 fL (35.1-46.3); Red Blood Cell Count 4.07 M/mm3 (3.80-5.20); White Blood Cell Count 21.25 K/mm3 (4.00-11.30)
[2020-12-11 05:49] LABS: Anion Gap 6 mmol/L (6-16); Blood Urea Nitrogen 22 mg/dL (8-24); CO2, Blood 30 mmol/L (21-32); Calcium, Blood 8.8 mg/dL (8.5-10.1); Chloride, Blood 101 mmol/L (98-108); Creatinine, Blood 0.79 mg/dL (0.40-1.00); Glomerular Filtration Rate >60 (60-); Glucose, Blood 180 mg/dL (70-99); Potassium, Blood 3.8 mmol/L (3.5-5.5); Sodium, Blood 137 mmol/L (136-145)
--- NOTE | 2020-12-11 06:13 | NUR ---
PT C/O CONSTIPATION PT STATES SHE HAS NOT HAD A BM IN A "COUPLE DAYS", AND USUALLY SHE HAS BMS DAILY "LIKE CLOCKWORK". PT AND SN DISCUSSED POSSIBILITY OF AMBULATING WITH ASSISTANCE DURING AM SHIFT TODAY, AND DRINKING SOME PRUNE JUICE INTERVENTIONS. I WILL REPORT THIS SUGGESTION TO ONCOMING RN.
--- NOTE | 2020-12-11 16:39 | NUR ---
MEN'S CUSTOM HAIR PIECE CONSULTANT SUMMARY PT A&OX4, ABLE TO MAKE NEEDS KNOWN. PLEASANT AND COOPERATIVE TO CARE. NO ACUTE CHANGES NOTED TO PATIENT THIS SHIFT. MEDICATED FOR PAIN PER EMAR. NO C/O CP, SOB, OR N&V. PT ON 3LPM O2 VIA NC, SATS >92%. CONTINUES ON SOLUMEDROL ORDERED AND SCHEDULED BREATHING TX. PT CURRENTLY RESTING IN BED AT THIS TIME. BED AT LOWEST POSITION. CALL LIGHT WITHIN REACH.
--- NOTE | 2020-12-11 19:28 | NUR ---
accepted care of pt from Cayetano CEDILLO. pt awake in bed. states meds have improved pain, see MAR. states ice on neck has improved GASCA. pt states coughing has become more productive, and BMs have increased. Still wheezing and feels generally unwell, but she is in good spirits and denies any new pain or numbness.
--- NOTE | 2020-12-12 01:44 | NUR ---
PATIENT RESTING IN BED WITH EYES CLOSED. RESPIRATIONS NONLABORED. PT HAS PLACED ICE PACK ON TOP OF HER HEAD A NONPHARMOLOGIC COMFORT MEASURE WHICH SEEMS TO BE HELPING. PT MEDICATED PER EMR AT 0040 WHICH SEEMS TO BE EFFECTIVE WELL. WILL CONTINUE TO MONITOR.
--- NOTE | 2020-12-12 03:57 | NUR ---
CASING BLOWER SUMMARY, STUDENT NURSE PT PLEASANT, ALERT, AND ORIENTED X 3 FOR DURATION OF SHIFT. UPON INITIAL ASSESSMENT IT WAS NOTED SHE DID NOT HAVE A DNR WRIST BAND ALTHOUGH CODE STATUS IS DNR. I DISCUSSED WITH PT WHO STATES AT THIS TIME SHE DOES WANT TO BE RESUSCITATED SHOULD IT BE NECESSARY. THIS WAS COMMUNICATED WITH NGUYEN MALDONADO AND WILL BE DISCUSSED WITH ONCOMING RN TO DISCUSS WITH HER PROVIDER. VITAL SIGNS STABLE, PT COMPLAINS OF CONTINUING HEADACHE/NECK PAIN AND IS REQUIRING Q6 PRN SEE EMR, ALSO SHE HAS BEEN USING ICE PACKS ON HER HEAD AND NECK AND STS THIS IS WORKING WELL. PT HAS BEEN RESTING COMFORTABLY, ONLY WAKING FOR RT OR MEDICATION PASSES. WILL CONTINUE TO MONITOR UNTIL ONCOMING RN TAKES OVER.
[2020-12-12 04:37] LABS: BASOPHILS ABSOLUTE AUTO 0.02 K/mm3 (0.00-0.23); BASOPHILS PERCENT AUTO 0 % (0-2); EOSINOPHILS PERCENT AUTO 0 % (0-6); Hematocrit 36.4 % (33.0-51.0); IMMATURE GRAN ABSOLUTE AUTO 0.13 K/mm3 (0.00-0.10); IMMATURE GRAN PERCENT AUTO 1 % (0-1); LYMPHOCYTES ABSOLUTE AUTO 0.86 K/mm3 (0.84-5.20); LYMPHOCYTES PERCENT AUTO 5 % (21-46); MONOCYTES ABSOLUTE AUTO 0.41 K/mm3 (0.16-1.47); MONOCYTES PERCENT AUTO 2 % (4-13); Mean Corpuscular HGB 30.5 pg (26.0-34.0); Mean Corpuscular Volume 93 fL (80-100); NEUTROPHILS PERCENT AUTO 92 % (41-73); Platelet Count 279 K/mm3 (150-400); RDW Coefficient Variation 13.5 % (11.7-14.2); RDW Standard Deviation 46.4 fL (35.1-46.3); Red Blood Cell Count 3.93 M/mm3 (3.80-5.20); White Blood Cell Count 17.12 K/mm3 (4.00-11.30)
[2020-12-12 04:53] LABS: Albumin, Blood 2.9 g/dL (3.4-5.0); Anion Gap 3 mmol/L (6-16); Blood Urea Nitrogen 22 mg/dL (8-24); Bun/Creatinine Ratio 29.8 (12.0-20.0); CO2, Blood 32 mmol/L (21-32); Chloride, Blood 99 mmol/L (98-108); Creatinine, Blood 0.74 mg/dL (0.40-1.00); Glomerular Filtration Rate >60 (60-); Glucose, Blood 153 mg/dL (70-99); Phosphorus, Blood 2.8 mg/dL (2.5-4.9); Potassium, Blood 4.2 mmol/L (3.5-5.5); Sodium, Blood 134 mmol/L (136-145)
--- NOTE | 2020-12-12 05:28 | NUR ---
I AGREE WITH DOCUMENTATION FROM KACIE AMOR STUDENT NURSE.
--- NOTE | 2020-12-12 06:44 | NUR ---
PT HAD VOICED SHE WANTED TO BE FULL CODE, NOTIFIED AND ORDERS FOR FULL CODE OBTAINED
--- NOTE | 2020-12-12 18:22 | NUR ---
SHIFT SUMMARY NO ACUTE CHANGES NOTED TO PATIENT THIS SHIFT. A&OX4, ABLE TO MAKE NEEDS KNOWN. PLEASANT AND COOPERATIVE TO CARE. MEDICATED FOR PAIN PER EMAR. NO C/O CP, SOB OR N&V. PT ON SOLUMEDROL ORDERED. CONTINUES ON 3LPM O2 VIA NC. PT CBG AC ORDERED. PATIENT'S AT BEDSIDE THIS AFTERNOON. PATIENT RESTING IN BED AT THIS TIME. BED AT LOWEST POSITION. CALL LIGHT WITHIN REACH.
--- NOTE | 2020-12-12 19:27 | NUR ---
AWAKE. RESP TREATMENT FINISHED. O2 AT 2L/MIN PER NC. VOICED DISCOMFORT IN SHOULDERS, PAIN MED GIVEN. HOB AT APPROX 50 DEGREES. CALL LIGHT IN REACH. AFFECT CHEERFUL.
--- NOTE | 2020-12-13 00:29 | NUR ---
C/O PAIN AT IV SITE, NOTE SLIGHT SWELLING. IV REMOVED
--- NOTE | 2020-12-13 03:40 | NUR ---
SHIFT SUMMARY AWAKE AT INTERVALS WITH REQUESTS FOR PAIN MEDS AND RESPIRATORY TREATMENTS. O2 PER NC, HOB REMAINS ELEVATED AROUND 45 DEGREES. AFFECT CHEERFUL AT TIMES. ROOM COOL, VOICED LIKES IT THAT WAY. IV REMOVED EARLIER DUE TO PAIN AND SLIGHT SWELLING AT SITE. WILL ATTEMPT ANOTHER SITE IN A WHILE BEFORE NEXT IV MED DUE. CALL LIGHT IN REACH.
--- NOTE | 2020-12-13 17:09 | NUR ---
PATIENT C/O CHEST PAIN. STATES SHE FEELS LIKE SHE HAS BEEN "KICKED IN THE CHEST". VITALS TAKEN, AND STABLE. LS DIMINISHED WITH WHEEZE IN LLL. RT CALLED AND A BREATHING TREATMENT HAS BEEN STATRED. DR. MANN NOTIFIED AND ORDERED A BREATHING TREATMENT, ANXIETY MEDICATION AND GI COCTAIL IF THE FIRST TWO DONT WORK. WILL CONTINUE TO MONITOR
--- NOTE | 2020-12-13 17:28 | NUR ---
BREATHING TREATMENT IS COMPLETE. PATIETN STATES HER CHEST PAIN HAS LESSENED.
--- NOTE | 2020-12-13 17:39 | NUR ---
PATIENT STATES THE CHEST PAIN HAS RESOLVED.
--- NOTE | 2020-12-13 18:10 | NUR ---
PATIENT IS ALERT AND ORIENTED AND COOPERATIVE WITH CARE. SHE IS WEARING 2L O2 NC. SHE IS HAS A PRODUCTIVE COUGH TODAY. THIS AFTERNOON SHE WAS USING THE FLUTTER VALVE INDEPENDENTLY AND THEN C/O CP. BREATHING TREATMENT AND ATARAX WAS GIVEN FOR ANXIETY. PATIENT STATES HER CP HAS RESOLVED. WILL CONTINUE TO MONITOR
--- NOTE | 2020-12-14 05:59 | NUR ---
PT IS A/O, IND TO BSC, MEDICATED THIS SHIFT FOR GASCA PER EMAR, ON 3L O2, ORAL THRUSH, CBG A/C.
[2020-12-14] MEDS ORDERED: AMLO5 PO (11:48)
[2020-12-14] MEDS ORDERED: ASPI325 (11:50)
[2020-12-14] MEDS ORDERED: ASPI81CH PO (11:59)
[2020-12-14] MEDS ORDERED: HURRICAINE ONE1 EACH MM (12:00)
[2020-12-14] MEDS ORDERED: DOCU100 PO (12:01)
[2020-12-14] MEDS ORDERED: BUDE.25 INH (12:01)
[2020-12-14] MEDS ORDERED: GUAI600T33 PO (12:02)
[2020-12-14] MEDS ORDERED: Atarax10 MG PO (12:02)
[2020-12-14] MEDS ORDERED: IPRAT-ALBUT 0.5-3 ML INH (12:07)
[2020-12-14] MEDS ORDERED: METF500 PO (12:11)
[2020-12-14] MEDS ORDERED: PRED20 PO (12:13)
[2020-12-14] MEDS ORDERED: [UNRECOGNIZED DRUG - CODE] MT (12:13)
[2020-12-14] MEDS ORDERED: SENN187 PO (12:14)
[2020-12-14] MEDS ORDERED: TRAM50 PO (12:15)
[2020-12-14] MEDS ORDERED: ALCIS59.15 ML TOP (12:16)
[2020-12-14] MEDS ORDERED: LACT PO (12:17)
--- NOTE | 2020-12-14 13:12 | NUR ---
PATIENT TEACHING ON HOW TO CHECK BLOOD GLUCOSE
--- NOTE | 2020-12-14 13:30 | NUR ---
No visitor, door is closed, offered prayer in silence from outside the room for pt.
== END 2020-12-14 13:00 | disposition home or self-care (01) | DRG 189 ==
LOC: ER 08:47 → MEDS 11:18
PROVIDERS: Emergency Medicine; Internal Medicine; Nurse Practitioner Acute Care; ADMIT Internal Medicine
DX: J96.21 Acute and chronic respiratory failure with hypoxia (principal); J44.1 Chronic obstructive pulmonary disease with (acute) exacerbation; B37.0 Candidal stomatitis; T38.0X5A Adverse effect of glucocorticoids and synthetic analogues, initial encounter; Z66 Do not resuscitate; I10 Essential (primary) hypertension; K21.9 Gastro-esophageal reflux disease without esophagitis; K74.60 Unspecified cirrhosis of liver; E11.9 Type 2 diabetes mellitus without complications; F41.9 Anxiety disorder, unspecified; G89.29 Other chronic pain; R51.9 Headache, unspecified; Z99.81 Dependence on supplemental oxygen; Z79.82 Long term (current) use of aspirin; Z86.73 Personal history of transient ischemic attack (TIA), and cerebral infarction without residual deficits; Z87.891 Personal history of nicotine dependence
CPT/HCPCS: 36415; 71045; 80048; 80053; 80069; 82803; 82947; 83036; 83880; 84484; 85025; 85027; 93005; 93010; 94640; 94667; 94668; 94760; 94762; 96365; 96375; 99285-25; A9270; A9270-GY; J0360; J1650; J1815; J1885; J2930; J3475; J7030; J7512

== ENCOUNTER 2020-12-26 17:23 | Emergency (ER) | payer MEDICARE ==
[~2020-12-26] VITALS: Ht 152.4 cm; Wt 61.2 kg
[~2020-12-26 17:23] MED LIST changes: +ALCIS59.15 ML TOP; +AMLO5 PO; +ASPI325; +ASPI81CH PO; +BUDE.25 INH; +BUDESONIDE-FO10.2 G2 INH; +DOCU100 PO; +HURRICAINE ONE1 EACH MM; +KLONOPIN0.5 M1 PO; +LACT PO; +LATANOPROST2.5 M3 BOTHEYES; +METF500 PO; +SENN187 PO; +Ventolin/Prove6.7 GM INH; +[UNRECOGNIZED DRUG - CODE] MT
[2020-12-26 17:57] LABS: BASOPHILS ABSOLUTE AUTO 0.01 K/mm3 (0.00-0.23); BASOPHILS PERCENT AUTO 0 % (0-2); EOSINOPHILS PERCENT AUTO 0 % (0-6); Hematocrit 38.9 % (33.0-51.0); Hemoglobin 12.6 g/dL (11.5-16.0); IMMATURE GRAN ABSOLUTE AUTO 0.06 K/mm3 (0.00-0.10); IMMATURE GRAN PERCENT AUTO 1 % (0-1); LYMPHOCYTES ABSOLUTE AUTO 1.02 K/mm3 (0.84-5.20); LYMPHOCYTES PERCENT AUTO 8 % (21-46); MONOCYTES ABSOLUTE AUTO 0.47 K/mm3 (0.16-1.47); MONOCYTES PERCENT AUTO 4 % (4-13); Mean Corpuscular HGB 29.9 pg (26.0-34.0); Mean Corpuscular HGB Conc 32.4 g/dL (31.5-36.5); Mean Corpuscular Volume 92 fL (80-100); Mean Platelet Volume 9.4 fL (9.1-12.4); NEUTROPHILS ABSOLUTE AUTO 10.93 K/mm3 (1.96-9.15); NEUTROPHILS PERCENT AUTO 87 % (41-73); Platelet Count 240 K/mm3 (150-400); RDW Coefficient Variation 14.1 % (11.7-14.2); RDW Standard Deviation 47.5 fL (35.1-46.3); Red Blood Cell Count 4.21 M/mm3 (3.80-5.20); White Blood Cell Count 12.49 K/mm3 (4.00-11.30)
[2020-12-26 18:13] LABS: Alanine Aminotransfer (ALT/SGP 47 U/L (12-78); Albumin, Blood 3.8 g/dL (3.4-5.0); Albumin/Globulin Ratio 1.3 (0.8-1.8); Alk Phos 50 U/L (50-136); Anion Gap 5 mmol/L (6-16); Aspartate Aminotrans (AST/SGOT 15 U/L (12-37); Bilirubin, Total 0.3 mg/dL (0.1-1.0); Blood Urea Nitrogen 11 mg/dL (8-24); Bun/Creatinine Ratio 14.4 (12.0-20.0); CO2, Blood 31 mmol/L (21-32); Calcium, Blood 9.5 mg/dL (8.5-10.1); Chloride, Blood 100 mmol/L (98-108); Creatinine, Blood 0.76 mg/dL (0.40-1.00); Glomerular Filtration Rate >60 (60-); Glucose, Blood 133 mg/dL (70-99); Potassium, Blood 4.1 mmol/L (3.5-5.5); Sodium, Blood 136 mmol/L (136-145); Total Protein, Blood 6.8 g/dL (6.4-8.2)
[2020-12-30] MEDS ORDERED: AMOCLA875 PO (05:42)
== END 2020-12-26 21:34 | disposition home or self-care (01) ==
LOC: ER 17:23
PROVIDERS: Physician Assistant
DX: J44.9 Chronic obstructive pulmonary disease, unspecified (principal); R07.81 Pleurodynia; Z88.6 Allergy status to analgesic agent; Z88.8 Allergy status to other drugs, medicaments and biological substances; Z79.899 Other long term (current) drug therapy
CPT/HCPCS: 36415; 71101; 80053; 82947; 85025; 94640; 96374; 99285-25; A9270; J1885

== ENCOUNTER 2021-01-05 16:32 | Emergency (ER) | payer MEDICARE ==
[~2021-01-05] VITALS: Ht 152.4 cm; Wt 61.7 kg
[~2021-01-05 16:32] MED LIST changes: +AMOCLA875 PO; -ASPI81CH PO
[2021-01-05] MEDS ORDERED: AMOCLA875 PO ×2 (17:20→19:37)
[2021-01-05] MEDS ORDERED: Prednisone50 MG PO ×2 (17:20→19:37)
[2021-01-05] MEDS ORDERED: BENZ100A PO (17:24)
[2021-01-05 18:04] LABS: BASOPHILS ABSOLUTE AUTO 0.08 K/mm3 (0.00-0.23); BASOPHILS PERCENT AUTO 1 % (0-2); EOSINOPHILS ABSOLUTE AUTO 0.11 K/mm3 (0.00-0.68); EOSINOPHILS PERCENT AUTO 1 % (0-6); Hematocrit 37.3 % (33.0-51.0); Hemoglobin 12.3 g/dL (11.5-16.0); IMMATURE GRAN ABSOLUTE AUTO 0.24 K/mm3 (0.00-0.10); IMMATURE GRAN PERCENT AUTO 2 % (0-1); LYMPHOCYTES ABSOLUTE AUTO 4.67 K/mm3 (0.84-5.20); LYMPHOCYTES PERCENT AUTO 41 % (21-46); MONOCYTES ABSOLUTE AUTO 1.15 K/mm3 (0.16-1.47); MONOCYTES PERCENT AUTO 10 % (4-13); Mean Corpuscular HGB 30.1 pg (26.0-34.0); Mean Corpuscular Volume 91 fL (80-100); Mean Platelet Volume 9.8 fL (9.1-12.4); NEUTROPHILS ABSOLUTE AUTO 5.06 K/mm3 (1.96-9.15); NEUTROPHILS PERCENT AUTO 45 % (41-73); Platelet Count 332 K/mm3 (150-400); RDW Standard Deviation 47.1 fL (35.1-46.3); Red Blood Cell Count 4.08 M/mm3 (3.80-5.20); White Blood Cell Count 11.31 K/mm3 (4.00-11.30)
[2021-01-05 18:27] LABS: Alanine Aminotransfer (ALT/SGP 35 U/L (12-78); Albumin, Blood 3.5 g/dL (3.4-5.0); Alk Phos 67 U/L (50-136); Anion Gap 7 mmol/L (6-16); Aspartate Aminotrans (AST/SGOT 33 U/L (12-37); Bilirubin, Total 0.4 mg/dL (0.1-1.0); Blood Urea Nitrogen 9 mg/dL (8-24); Bun/Creatinine Ratio 11.8 (12.0-20.0); CO2, Blood 26 mmol/L (21-32); Calcium, Blood 9.3 mg/dL (8.5-10.1); Chloride, Blood 102 mmol/L (98-108); Creatinine, Blood 0.76 mg/dL (0.40-1.00); Globulin, Blood 3.5 g/dL (2.2-4.0); Glomerular Filtration Rate >60 (60-); Glucose, Blood 114 mg/dL (70-99); Potassium, Blood 3.8 mmol/L (3.5-5.5); Sodium, Blood 135 mmol/L (136-145); Troponin I <0.015 ng/mL (0.000-0.040)
[2021-01-05] MEDS ORDERED: Roxicodone5 MG PO (19:14)
[2021-03-21] MEDS ORDERED: PRED20 PO (13:33)
== END 2021-01-05 19:54 | disposition home or self-care (01) ==
LOC: ER 16:32
PROVIDERS: Emergency Medicine
DX: J44.1 Chronic obstructive pulmonary disease with (acute) exacerbation (principal); Z88.6 Allergy status to analgesic agent; Z88.8 Allergy status to other drugs, medicaments and biological substances; Z79.899 Other long term (current) drug therapy; Z79.82 Long term (current) use of aspirin; Z87.891 Personal history of nicotine dependence
CPT/HCPCS: 36415; 71045; 80053; 84484; 85025; 93005; 93010; 94644; 96374; 96375; 99284-25; A9270; J1100; J2405; J3010

== ENCOUNTER 2021-03-12 11:21 | Emergency (ER) | payer MEDICARE ==
[~2021-03-12] VITALS: Ht 152.4 cm; Wt 63.0 kg
[~2021-03-12 11:21] MED LIST changes: +ASPI81CH PO; +BENZ100A PO; +Prednisone50 MG PO
[2021-03-12 11:48] LABS: BASOPHILS ABSOLUTE AUTO 0.07 K/mm3 (0.00-0.23); BASOPHILS PERCENT AUTO 1 % (0-2); EOSINOPHILS ABSOLUTE AUTO 0.24 K/mm3 (0.00-0.68); EOSINOPHILS PERCENT AUTO 2 % (0-6); Hematocrit 37.1 % (33.0-51.0); Hemoglobin 11.8 g/dL (11.5-16.0); IMMATURE GRAN ABSOLUTE AUTO 0.02 K/mm3 (0.00-0.10); IMMATURE GRAN PERCENT AUTO 0 % (0-1); LYMPHOCYTES ABSOLUTE AUTO 4.03 K/mm3 (0.84-5.20); LYMPHOCYTES PERCENT AUTO 40 % (21-46); MONOCYTES ABSOLUTE AUTO 1.03 K/mm3 (0.16-1.47); MONOCYTES PERCENT AUTO 10 % (4-13); Mean Corpuscular HGB 28.3 pg (26.0-34.0); Mean Corpuscular HGB Conc 31.8 g/dL (31.5-36.5); Mean Corpuscular Volume 89 fL (80-100); Mean Platelet Volume 9.4 fL (9.1-12.4); NEUTROPHILS ABSOLUTE AUTO 4.63 K/mm3 (1.96-9.15); NEUTROPHILS PERCENT AUTO 46 % (41-73); Platelet Count 376 K/mm3 (150-400); RDW Coefficient Variation 14.2 % (11.7-14.2); Red Blood Cell Count 4.17 M/mm3 (3.80-5.20); White Blood Cell Count 10.02 K/mm3 (4.00-11.30)
[2021-03-12 12:12] LABS: Alanine Aminotransfer (ALT/SGP 12 U/L (12-78); Albumin, Blood 3.4 g/dL (3.4-5.0); Albumin/Globulin Ratio 0.9 (0.8-1.8); Alk Phos 87 U/L (50-136); Anion Gap 5 mmol/L (6-16); Aspartate Aminotrans (AST/SGOT 15 U/L (12-37); Bilirubin, Total 0.3 mg/dL (0.1-1.0); Blood Urea Nitrogen 8 mg/dL (8-24); Bun/Creatinine Ratio 12.5 (12.0-20.0); CO2, Blood 33 mmol/L (21-32); Calcium, Blood 9.3 mg/dL (8.5-10.1); Chloride, Blood 101 mmol/L (98-108); Creatinine, Blood 0.64 mg/dL (0.40-1.00); Globulin, Blood 3.6 g/dL (2.2-4.0); Glomerular Filtration Rate >60 (60-); Glucose, Blood 142 mg/dL (70-99); Potassium, Blood 3.5 mmol/L (3.5-5.5); Sodium, Blood 139 mmol/L (136-145); Troponin I <0.015 ng/mL (0.000-0.040)
== END 2021-03-12 16:24 | disposition home or self-care (01) ==
LOC: ER 11:21
PROVIDERS: Emergency Medicine
DX: R06.02 Shortness of breath (principal); R05 Cough; J44.9 Chronic obstructive pulmonary disease, unspecified
CPT/HCPCS: 36415; 71045; 80053; 84484; 85025; 93005; 93010; 94640; 96374; 99285-25; A9270; J2930

== ENCOUNTER 2021-04-04 06:16 | Inpatient (IN) | payer MEDICARE ==
[~2021-04-04] VITALS: Ht 152.4 cm; Wt 57.1 kg
[~2021-04-04 06:16] MED LIST changes: -ASPI81CH PO; +IPRAT-ALBUT 0.5-3 ML NEB
[2021-04-04 06:31] LABS: BASOPHILS ABSOLUTE AUTO 0.02 K/mm3 (0.00-0.23); BASOPHILS PERCENT AUTO 0 % (0-2); EOSINOPHILS ABSOLUTE AUTO 0.03 K/mm3 (0.00-0.68); EOSINOPHILS PERCENT AUTO 0 % (0-6); Hematocrit 33.1 % (33.0-51.0); Hemoglobin 10.8 g/dL (11.5-16.0); IMMATURE GRAN ABSOLUTE AUTO 0.02 K/mm3 (0.00-0.10); IMMATURE GRAN PERCENT AUTO 0 % (0-1); LYMPHOCYTES ABSOLUTE AUTO 4.46 K/mm3 (0.84-5.20); LYMPHOCYTES PERCENT AUTO 39 % (21-46); MONOCYTES PERCENT AUTO 8 % (4-13); Mean Corpuscular HGB 27.8 pg (26.0-34.0); Mean Corpuscular HGB Conc 32.6 g/dL (31.5-36.5); Mean Corpuscular Volume 85 fL (80-100); Mean Platelet Volume 9.9 fL (9.1-12.4); NEUTROPHILS ABSOLUTE AUTO 5.99 K/mm3 (1.96-9.15); NEUTROPHILS PERCENT AUTO 52 % (41-73); Platelet Count 322 K/mm3 (150-400); RDW Coefficient Variation 14.5 % (11.7-14.2); RDW Standard Deviation 44.9 fL (35.1-46.3); Red Blood Cell Count 3.89 M/mm3 (3.80-5.20); White Blood Cell Count 11.42 K/mm3 (4.00-11.30)
[2021-04-04 07:27] LABS: Anion Gap 5 mmol/L (6-16); CO2, Blood 27 mmol/L (21-32); Calcium, Blood 9.4 mg/dL (8.5-10.1); Chloride, Blood 105 mmol/L (98-108); Sodium, Blood 137 mmol/L (136-145)
[2021-04-04 07:45] LABS: Alanine Aminotransfer (ALT/SGP 20 U/L (12-78); Albumin, Blood 3.7 g/dL (3.4-5.0); Albumin/Globulin Ratio 1.1 (0.8-1.8); Alk Phos 74 U/L (50-136); Aspartate Aminotrans (AST/SGOT 21 U/L (12-37); Bilirubin, Total 0.3 mg/dL (0.1-1.0); Blood Urea Nitrogen 10 mg/dL (8-24); Bun/Creatinine Ratio 14.5 (12.0-20.0); Creatinine, Blood 0.69 mg/dL (0.40-1.00); Globulin, Blood 3.5 g/dL (2.2-4.0); Glomerular Filtration Rate >60 (60-); Glucose, Blood 101 mg/dL (70-99); Total Protein, Blood 7.2 g/dL (6.4-8.2); Troponin I <0.015 ng/mL (0.000-0.040)
[2021-04-04 07:47] LABS: Potassium, Blood 4.3 mmol/L (3.5-5.5)
[2021-04-04] MEDS ORDERED: LORAZEPAM0.5 MG PO (11:47)
[2021-04-04] MEDS ORDERED: ROPINIROLE HCL0.5 MG PO (11:47)
[2021-04-04] MEDS ORDERED: OMEP20ER PO (11:49)
[2021-04-04] MEDS ORDERED: METFORMIN HCL500 M2 PO (11:49)
--- NOTE | 2021-04-04 16:43 | NUR ---
1300 RECEIVED PT TO RM 340 FROM ER. PT ABLE TO TX SELF TO BED. ADMITTED FOR COPD EXAC D/T PT C/O SOB. PT'S BIOX HAS REMAINED AT 97 ON RA. C/O GASCA AND CP D/T COUGHING. DR WEINSTEIN NOTIFIED; INSTRUCTED TO CALL PHILLIP FOR ORDERS. PT REPORTED THAT SHE TAKES AN ASA AT HOME FOR PAIN. ASA 325 MG X1 ORDERED AND GIVEN. PT TO HAVE BRING IN HOME BEDTIME MEDICATION. INDEPENDENT IN AND TO [facility]. CALL LT IN REACH. TALKING ON PHONE TO FAMILY. DENIED FURTHER NEEDS AT THIS TIME.
--- NOTE | 2021-04-04 21:48 | NUR ---
DNR BAND PLACED DNR BAND TO R WRIST. VERIFIED WITH YAIR CEDILLO.
--- NOTE | 2021-04-05 05:01 | NUR ---
Shift Summary Patient reported not having had slept for approx. 7 days. Slept well throughout night without any acute events however. On RA, NC on for anxiety reduction. C/O 8/10 GASCA at shift start, but did not request for any pain meds. Home med labeled and in patient's med drawer. TM.
[2021-04-05 05:22] LABS: BASOPHILS ABSOLUTE AUTO 0.01 K/mm3 (0.00-0.23); BASOPHILS PERCENT AUTO 0 % (0-2); EOSINOPHILS PERCENT AUTO 0 % (0-6); Hematocrit 37.9 % (33.0-51.0); Hemoglobin 12.1 g/dL (11.5-16.0); IMMATURE GRAN ABSOLUTE AUTO 0.06 K/mm3 (0.00-0.10); IMMATURE GRAN PERCENT AUTO 1 % (0-1); LYMPHOCYTES ABSOLUTE AUTO 1.87 K/mm3 (0.84-5.20); LYMPHOCYTES PERCENT AUTO 15 % (21-46); MONOCYTES ABSOLUTE AUTO 0.29 K/mm3 (0.16-1.47); MONOCYTES PERCENT AUTO 2 % (4-13); Mean Corpuscular HGB 27.5 pg (26.0-34.0); Mean Corpuscular HGB Conc 31.9 g/dL (31.5-36.5); Mean Corpuscular Volume 86 fL (80-100); Mean Platelet Volume 9.7 fL (9.1-12.4); NEUTROPHILS ABSOLUTE AUTO 10.53 K/mm3 (1.96-9.15); NEUTROPHILS PERCENT AUTO 82 % (41-73); Platelet Count 360 K/mm3 (150-400); RDW Coefficient Variation 14.6 % (11.7-14.2); RDW Standard Deviation 46.2 fL (35.1-46.3); White Blood Cell Count 12.76 K/mm3 (4.00-11.30)
[2021-04-05 05:43] LABS: Magnesium, Blood 2.2 mg/dL (1.6-2.4)
[2021-04-05 06:15] LABS: Alanine Aminotransfer (ALT/SGP 16 U/L (12-78); Albumin, Blood 3.2 g/dL (3.4-5.0); Albumin/Globulin Ratio 0.9 (0.8-1.8); Alk Phos 65 U/L (50-136); Anion Gap 3 mmol/L (6-16); Aspartate Aminotrans (AST/SGOT 5 U/L (12-37); Bilirubin, Total 0.4 mg/dL (0.1-1.0); Blood Urea Nitrogen 13 mg/dL (8-24); Bun/Creatinine Ratio 18.7 (12.0-20.0); CO2, Blood 28 mmol/L (21-32); Calcium, Blood 9.2 mg/dL (8.5-10.1); Chloride, Blood 109 mmol/L (98-108); Creatinine, Blood 0.69 mg/dL (0.40-1.00); Globulin, Blood 3.5 g/dL (2.2-4.0); Glomerular Filtration Rate >60 (60-); Glucose, Blood 137 mg/dL (70-99); Potassium, Blood 4.1 mmol/L (3.5-5.5); Sodium, Blood 140 mmol/L (136-145); Total Protein, Blood 6.7 g/dL (6.4-8.2)
--- NOTE | 2021-04-05 13:41 | NUR ---
PT AWAKE THIS AM AT START OF SHIFT. INDEPENDENT IN RM AND TO [facility]. PT'S BIOX 98% ON RA. PT STILL WEARING OXYGEN TUBING FOR COMFORT. PT IS VERY ANXIOUS ABOUT EVERYTHING. ORIENTED BUT FORGETFUL. SEEMS TO GET INFORMATION TWISTED AND CONFUSED. POOR HISTORIAN FOR ACCURACY. LUNGS T/O IMPROVED FROM YESTERDAY; NOT WHEEZY, WITH A LITTLE MORE AIR MOVEMENT. DR'S IN TO SEE PT EARLY THIS AM. PT REPORTED THAT SHE HAD ASKED FOR SOMETHING FOR GASCA. PT REPORTED THAT SHE TAKES ASA AT HOME, SOMETIMES 3X'S PER DAY, FOR GASCA. PT HAD ALREADY RECEIVED 81MG WITH AM MEDS. ADDITIONAL 325MG ORDERED AND GIVEN, PER PT REQUEST. PT THEN REPORTED THAT SHE HAD MADE AN APPOINTMENT WITH SOME SPECIALIST THAT SHE GOES TO FOR LATER TODAY AND NEEDED TO GO HOME SO SHE COULD MAKE THE APPOINTMENT. PT THEN TOLD TOWER CLEANER THAT SHE WANTED TO GO AMA. ATTEMPTED TO EDU PT, WHO STATED THAT SHE HAD EVERYTHING SHE NEEDED AT HOME ALREADY. PT REPORTED THAT HER WAS ON THE WAY TO PICK HER UP. AMA FORM OBTAINED AND SIGNED BY PT AT HER REQUEST. PT'S TO AND TOOK PT OUT TO CAR VIA W/C. DR ANDREW NOTIFIED OF PT'S WISHES AND GOING AMA. FORM OBTAINED
[2021-05-09] MEDS ORDERED: HYDHCL25 PO (02:47)
== END 2021-04-05 11:57 | disposition left against medical advice (07) | DRG 189 ==
LOC: ER 06:16 → MEDS 11:19
PROVIDERS: Emergency Medicine; Nurse Practitioner Acute Care; ADMIT Internal Medicine
DX: J96.21 Acute and chronic respiratory failure with hypoxia (principal); J44.1 Chronic obstructive pulmonary disease with (acute) exacerbation; R51.9 Headache, unspecified; I48.0 Paroxysmal atrial fibrillation; R07.89 Other chest pain; Z66 Do not resuscitate; D72.829 Elevated white blood cell count, unspecified; I10 Essential (primary) hypertension; F41.9 Anxiety disorder, unspecified; K21.9 Gastro-esophageal reflux disease without esophagitis; Z99.81 Dependence on supplemental oxygen; Z86.73 Personal history of transient ischemic attack (TIA), and cerebral infarction without residual deficits; Z90.49 Acquired absence of other specified parts of digestive tract; Z98.890 Other specified postprocedural states; Z98.51 Tubal ligation status; Z88.6 Allergy status to analgesic agent; Z88.8 Allergy status to other drugs, medicaments and biological substances; Z79.82 Long term (current) use of aspirin; Z79.899 Other long term (current) drug therapy
CPT/HCPCS: 36415; 71045; 80053; 82947; 83735; 83880; 84484; 85025; 93005; 93010; 94640; 94644; 94664; 94760; 96365; 96366; 96367; 96375; 99285-25; A9270; J0456; J0696; J1650; J2405; J2930; J3010; J7050

== ENCOUNTER 2021-04-09 06:03 | Emergency (ER) | payer MEDICARE ==
[~2021-04-09] VITALS: Ht 152.4 cm; Wt 59.0 kg
[~2021-04-09 06:03] MED LIST changes: +LORAZEPAM0.5 MG PO; +METFORMIN HCL500 M2 PO; +ROPINIROLE HCL0.5 MG PO
[2021-05-09] MEDS ORDERED: HYDHCL25 PO (02:47)
== END 2021-04-09 08:40 | disposition left against medical advice (07) ==
LOC: ER 06:03
DX: Z53.21 Procedure and treatment not carried out due to patient leaving prior to being seen by health care provider (principal)

== ENCOUNTER 2021-04-13 05:08 | Emergency (ER) | payer MEDICARE ==
[~2021-04-13] VITALS: Ht 152.4 cm; Wt 59.9 kg
[2021-04-13 05:31] LABS: BASOPHILS ABSOLUTE AUTO 0.02 K/mm3 (0.00-0.23); BASOPHILS PERCENT AUTO 0 % (0-2); EOSINOPHILS PERCENT AUTO 0 % (0-6); Hematocrit 40.5 % (33.0-51.0); Hemoglobin 13.2 g/dL (11.5-16.0); IMMATURE GRAN ABSOLUTE AUTO 0.08 K/mm3 (0.00-0.10); IMMATURE GRAN PERCENT AUTO 1 % (0-1); LYMPHOCYTES ABSOLUTE AUTO 2.43 K/mm3 (0.84-5.20); LYMPHOCYTES PERCENT AUTO 20 % (21-46); MONOCYTES ABSOLUTE AUTO 0.68 K/mm3 (0.16-1.47); MONOCYTES PERCENT AUTO 6 % (4-13); Mean Corpuscular HGB Conc 32.6 g/dL (31.5-36.5); Mean Corpuscular Volume 83 fL (80-100); Mean Platelet Volume 9.7 fL (9.1-12.4); NEUTROPHILS ABSOLUTE AUTO 9.26 K/mm3 (1.96-9.15); NEUTROPHILS PERCENT AUTO 74 % (41-73); Platelet Count 452 K/mm3 (150-400); RDW Coefficient Variation 14.6 % (11.7-14.2); RDW Standard Deviation 43.9 fL (35.1-46.3); Red Blood Cell Count 4.89 M/mm3 (3.80-5.20); White Blood Cell Count 12.47 K/mm3 (4.00-11.30)
[2021-04-13 05:57] LABS: Alanine Aminotransfer (ALT/SGP 33 U/L (12-78); Albumin, Blood 3.8 g/dL (3.4-5.0); Alk Phos 84 U/L (50-136); Anion Gap 5 mmol/L (6-16); Aspartate Aminotrans (AST/SGOT 17 U/L (12-37); Bilirubin, Total 0.3 mg/dL (0.1-1.0); Blood Urea Nitrogen 13 mg/dL (8-24); Bun/Creatinine Ratio 20.5 (12.0-20.0); CO2, Blood 27 mmol/L (21-32); Calcium, Blood 9.6 mg/dL (8.5-10.1); Chloride, Blood 103 mmol/L (98-108); Creatinine, Blood 0.64 mg/dL (0.40-1.00); Globulin, Blood 3.8 g/dL (2.2-4.0); Glomerular Filtration Rate >60 (60-); Glucose, Blood 130 mg/dL (70-99); Potassium, Blood 4.1 mmol/L (3.5-5.5); Sodium, Blood 135 mmol/L (136-145); Total Protein, Blood 7.6 g/dL (6.4-8.2); Troponin I <0.015 ng/mL (0.000-0.040)
[2021-05-09] MEDS ORDERED: HYDHCL25 PO (02:47)
== END 2021-04-13 10:05 | disposition home or self-care (01) ==
LOC: ER 05:08
PROVIDERS: Student in an Organized Health Care Education/Training Program
DX: J43.9 Emphysema, unspecified (principal); Z20.822 Contact with and (suspected) exposure to COVID-19; Z79.82 Long term (current) use of aspirin; Z79.899 Other long term (current) drug therapy
CPT/HCPCS: 36415; 71045; 80053; 83880; 84484; 85025; 93005; 93010; 94640; 96374; 96375; 99285-25; J2550; J2930

== ENCOUNTER 2021-04-26 04:01 | Emergency (ER) | payer MEDICARE ==
[~2021-04-26] VITALS: Ht 152.4 cm; Wt 62.6 kg
[2021-04-26 04:22] LABS: BASOPHILS ABSOLUTE AUTO 0.05 K/mm3 (0.00-0.23); BASOPHILS PERCENT AUTO 0 % (0-2); EOSINOPHILS ABSOLUTE AUTO 0.06 K/mm3 (0.00-0.68); EOSINOPHILS PERCENT AUTO 0 % (0-6); Hematocrit 35.1 % (33.0-51.0); Hemoglobin 11.8 g/dL (11.5-16.0); IMMATURE GRAN ABSOLUTE AUTO 0.21 K/mm3 (0.00-0.10); IMMATURE GRAN PERCENT AUTO 1 % (0-1); LYMPHOCYTES ABSOLUTE AUTO 2.73 K/mm3 (0.84-5.20); LYMPHOCYTES PERCENT AUTO 12 % (21-46); MONOCYTES ABSOLUTE AUTO 1.76 K/mm3 (0.16-1.47); MONOCYTES PERCENT AUTO 7 % (4-13); Mean Corpuscular HGB Conc 33.6 g/dL (31.5-36.5); Mean Corpuscular Volume 80 fL (80-100); NEUTROPHILS PERCENT AUTO 80 % (41-73); Platelet Count 301 K/mm3 (150-400); RDW Coefficient Variation 14.5 % (11.7-14.2); RDW Standard Deviation 42.5 fL (35.1-46.3); Red Blood Cell Count 4.37 M/mm3 (3.80-5.20); White Blood Cell Count 23.81 K/mm3 (4.00-11.30)
[2021-04-26 04:41] LABS: Alanine Aminotransfer (ALT/SGP 53 U/L (12-78); Albumin, Blood 3.1 g/dL (3.4-5.0); Albumin/Globulin Ratio 0.9 (0.8-1.8); Alk Phos 100 U/L (50-136); Anion Gap 9 mmol/L (6-16); Aspartate Aminotrans (AST/SGOT 36 U/L (12-37); Bilirubin, Total 0.5 mg/dL (0.1-1.0); Blood Urea Nitrogen 16 mg/dL (8-24); Bun/Creatinine Ratio 30.8 (12.0-20.0); CO2, Blood 27 mmol/L (21-32); Chloride, Blood 87 mmol/L (98-108); Creatinine, Blood 0.52 mg/dL (0.40-1.00); Globulin, Blood 3.4 g/dL (2.2-4.0); Glomerular Filtration Rate >60 (60-); Glucose, Blood 135 mg/dL (70-99); Potassium, Blood 4.1 mmol/L (3.5-5.5); Sodium, Blood 123 mmol/L (136-145); Total Protein, Blood 6.5 g/dL (6.4-8.2); Troponin I <0.015 ng/mL (0.000-0.040)
[2021-04-26 05:06] LABS: SARS-Cov-2 (COVID-19) PCR, MMC NEGATIVE (NEGATIVE)
[2021-04-26] MEDS ORDERED: METPRE4DP PO (05:32)
[2021-04-26] MEDS ORDERED: AZIT250 PO (05:32)
[2021-04-26] MEDS ORDERED: ALBU2.5V5 NEB (05:32)
[2021-05-09] MEDS ORDERED: HYDHCL25 PO (02:47)
== END 2021-04-26 06:33 | disposition home or self-care (01) ==
LOC: ER 04:01
PROVIDERS: Emergency Medicine
DX: J43.9 Emphysema, unspecified (principal); J40 Bronchitis, not specified as acute or chronic; Z20.822 Contact with and (suspected) exposure to COVID-19; Z99.81 Dependence on supplemental oxygen
CPT/HCPCS: 71045; 80053; 83880; 84484; 85025; 93005; 93010; 96374; 96375; 99285-25; J2060; J2550; J2930; U0004

== ENCOUNTER 2021-05-03 05:48 | Emergency (ER) | payer MEDICARE ==
[~2021-05-03] VITALS: Ht 152.4 cm; Wt 63.0 kg
[~2021-05-03 05:48] MED LIST changes: +ALBU2.5V5 NEB; +METPRE4DP PO
[2021-05-03 06:34] LABS: BASOPHILS ABSOLUTE AUTO 0.05 K/mm3 (0.00-0.23); BASOPHILS PERCENT AUTO 0 % (0-2); EOSINOPHILS ABSOLUTE AUTO 0.15 K/mm3 (0.00-0.68); EOSINOPHILS PERCENT AUTO 1 % (0-6); Hematocrit 36.9 % (33.0-51.0); Hemoglobin 11.8 g/dL (11.5-16.0); IMMATURE GRAN ABSOLUTE AUTO 0.06 K/mm3 (0.00-0.10); IMMATURE GRAN PERCENT AUTO 0 % (0-1); LYMPHOCYTES ABSOLUTE AUTO 3.98 K/mm3 (0.84-5.20); LYMPHOCYTES PERCENT AUTO 29 % (21-46); MONOCYTES ABSOLUTE AUTO 1.54 K/mm3 (0.16-1.47); MONOCYTES PERCENT AUTO 11 % (4-13); Mean Corpuscular HGB 26.5 pg (26.0-34.0); Mean Corpuscular Volume 83 fL (80-100); Mean Platelet Volume 8.9 fL (9.1-12.4); NEUTROPHILS ABSOLUTE AUTO 7.98 K/mm3 (1.96-9.15); NEUTROPHILS PERCENT AUTO 58 % (41-73); Platelet Count 475 K/mm3 (150-400); RDW Coefficient Variation 15.1 % (11.7-14.2); RDW Standard Deviation 45.8 fL (35.1-46.3); Red Blood Cell Count 4.45 M/mm3 (3.80-5.20); White Blood Cell Count 13.76 K/mm3 (4.00-11.30)
[2021-05-03 06:50] LABS: Alanine Aminotransfer (ALT/SGP 28 U/L (12-78); Albumin, Blood 3.4 g/dL (3.4-5.0); Albumin/Globulin Ratio 0.9 (0.8-1.8); Alk Phos 80 U/L (50-136); Anion Gap 7 mmol/L (6-16); Aspartate Aminotrans (AST/SGOT 9 U/L (12-37); Bilirubin, Total 0.3 mg/dL (0.1-1.0); Blood Urea Nitrogen 11 mg/dL (8-24); Bun/Creatinine Ratio 18.4 (12.0-20.0); CO2, Blood 30 mmol/L (21-32); Calcium, Blood 8.5 mg/dL (8.5-10.1); Chloride, Blood 98 mmol/L (98-108); Globulin, Blood 3.6 g/dL (2.2-4.0); Glomerular Filtration Rate >60 (60-); Glucose, Blood 125 mg/dL (70-99); Potassium, Blood 3.7 mmol/L (3.5-5.5); Sodium, Blood 135 mmol/L (136-145); Troponin I <0.015 ng/mL (0.000-0.040)
[2021-05-09] MEDS ORDERED: HYDHCL25 PO (02:47)
== END 2021-05-03 08:40 | disposition home or self-care (01) ==
LOC: ER 05:48
PROVIDERS: Emergency Medicine
DX: J44.1 Chronic obstructive pulmonary disease with (acute) exacerbation (principal); F41.9 Anxiety disorder, unspecified; R11.0 Nausea; I10 Essential (primary) hypertension; I48.91 Unspecified atrial fibrillation; Z99.81 Dependence on supplemental oxygen; Z86.73 Personal history of transient ischemic attack (TIA), and cerebral infarction without residual deficits; Z20.822 Contact with and (suspected) exposure to COVID-19; Z88.6 Allergy status to analgesic agent; Z88.8 Allergy status to other drugs, medicaments and biological substances; Z79.899 Other long term (current) drug therapy; Z79.82 Long term (current) use of aspirin; Z79.84 Long term (current) use of oral hypoglycemic drugs
CPT/HCPCS: 36415; 71045; 80053; 83880; 84484; 85025; 93005; 93010; 96374; 96375; 99284-25; A9270; J2060; J2405

== ENCOUNTER 2021-05-05 22:59 | Emergency (ER) | payer MEDICARE ==
[~2021-05-05] VITALS: Ht 152.4 cm; Wt 63.5 kg
[2021-05-05 23:47] LABS: PCO2 Arterial 47.8 mmHg (35-45); PO2 Arterial 125 mmHg (80-100); pH Blood Arterial 7.41 (7.35-7.45)
[2021-05-05 23:48] LABS: BASOPHILS ABSOLUTE AUTO 0.05 K/mm3 (0.00-0.23); BASOPHILS PERCENT AUTO 0 % (0-2); EOSINOPHILS ABSOLUTE AUTO 0.02 K/mm3 (0.00-0.68); EOSINOPHILS PERCENT AUTO 0 % (0-6); Hematocrit 36.9 % (33.0-51.0); Hemoglobin 11.9 g/dL (11.5-16.0); IMMATURE GRAN ABSOLUTE AUTO 0.07 K/mm3 (0.00-0.10); IMMATURE GRAN PERCENT AUTO 1 % (0-1); LYMPHOCYTES ABSOLUTE AUTO 2.88 K/mm3 (0.84-5.20); LYMPHOCYTES PERCENT AUTO 22 % (21-46); MONOCYTES ABSOLUTE AUTO 1.16 K/mm3 (0.16-1.47); MONOCYTES PERCENT AUTO 9 % (4-13); Mean Corpuscular HGB 26.4 pg (26.0-34.0); Mean Corpuscular HGB Conc 32.2 g/dL (31.5-36.5); Mean Corpuscular Volume 82 fL (80-100); Mean Platelet Volume 8.7 fL (9.1-12.4); NEUTROPHILS ABSOLUTE AUTO 8.66 K/mm3 (1.96-9.15); NEUTROPHILS PERCENT AUTO 68 % (41-73); Platelet Count 503 K/mm3 (150-400); RDW Coefficient Variation 15.1 % (11.7-14.2); RDW Standard Deviation 45.3 fL (35.1-46.3); Red Blood Cell Count 4.51 M/mm3 (3.80-5.20); White Blood Cell Count 12.84 K/mm3 (4.00-11.30)
[2021-05-06 00:09] LABS: Alanine Aminotransfer (ALT/SGP 25 U/L (12-78); Albumin, Blood 3.5 g/dL (3.4-5.0); Alk Phos 78 U/L (50-136); Anion Gap 6 mmol/L (6-16); Aspartate Aminotrans (AST/SGOT 11 U/L (12-37); Bilirubin, Total 0.2 mg/dL (0.1-1.0); Blood Urea Nitrogen 11 mg/dL (8-24); Bun/Creatinine Ratio 18.5 (12.0-20.0); CO2, Blood 29 mmol/L (21-32); Calcium, Blood 8.4 mg/dL (8.5-10.1); Chloride, Blood 99 mmol/L (98-108); Globulin, Blood 3.6 g/dL (2.2-4.0); Glomerular Filtration Rate >60 (60-); Glucose, Blood 112 mg/dL (70-99); Potassium, Blood 4.4 mmol/L (3.5-5.5); Sodium, Blood 134 mmol/L (136-145); Total Protein, Blood 7.1 g/dL (6.4-8.2); Troponin I <0.015 ng/mL (0.000-0.040)
[2021-05-06 00:37] LABS: SARS-Cov-2 (COVID-19) PCR, MMC NEGATIVE (NEGATIVE)
[2021-05-06] MEDS ORDERED: Prednisone20 MG PO (02:44)
[2021-05-06] MEDS ORDERED: ALBU90OI INH (02:44)
[2021-05-09] MEDS ORDERED: HYDHCL25 PO (02:47)
== END 2021-05-06 03:00 | disposition home or self-care (01) ==
LOC: ER 22:59
PROVIDERS: Emergency Medicine
DX: J44.1 Chronic obstructive pulmonary disease with (acute) exacerbation (principal); I10 Essential (primary) hypertension; I48.91 Unspecified atrial fibrillation; Z20.822 Contact with and (suspected) exposure to COVID-19; Z88.6 Allergy status to analgesic agent; Z79.899 Other long term (current) drug therapy; Z79.82 Long term (current) use of aspirin; Z79.84 Long term (current) use of oral hypoglycemic drugs; Z99.81 Dependence on supplemental oxygen; Z86.73 Personal history of transient ischemic attack (TIA), and cerebral infarction without residual deficits; Z87.891 Personal history of nicotine dependence
CPT/HCPCS: 36600; 71045; 80053; 82803; 83605; 83880; 84484; 85025; 85379; 93005; 93010; 94644; 96374; 99285-25; J2930; U0004

== ENCOUNTER 2021-05-07 01:06 | Emergency (ER) | payer MEDICARE ==
[~2021-05-07] VITALS: Ht 152.4 cm; Wt 64.4 kg
[~2021-05-07 01:06] MED LIST changes: +ALBU90OI INH
[2021-05-09] MEDS ORDERED: HYDHCL25 PO (02:47)
== END 2021-05-07 03:48 | disposition home or self-care (01) ==
LOC: ER 01:06
DX: J44.1 Chronic obstructive pulmonary disease with (acute) exacerbation (principal); F41.9 Anxiety disorder, unspecified; I10 Essential (primary) hypertension; I48.91 Unspecified atrial fibrillation; Z88.6 Allergy status to analgesic agent; Z88.8 Allergy status to other drugs, medicaments and biological substances; Z79.899 Other long term (current) drug therapy; Z79.82 Long term (current) use of aspirin; Z79.84 Long term (current) use of oral hypoglycemic drugs; Z86.73 Personal history of transient ischemic attack (TIA), and cerebral infarction without residual deficits; Z87.891 Personal history of nicotine dependence
CPT/HCPCS: 36415; 71045; 99285-25; A9270

== ENCOUNTER 2021-05-29 23:22 | Emergency (ER) | payer MEDICARE ==
[~2021-05-29] VITALS: Ht 152.4 cm; Wt 66.7 kg
[~2021-05-29 23:22] MED LIST changes: +HYDHCL25 PO
[2021-05-29 23:48] LABS: BASOPHILS ABSOLUTE AUTO 0.09 K/mm3 (0.00-0.23); BASOPHILS PERCENT AUTO 1 % (0-2); EOSINOPHILS ABSOLUTE AUTO 0.47 K/mm3 (0.00-0.68); EOSINOPHILS PERCENT AUTO 4 % (0-6); Hematocrit 38.3 % (33.0-51.0); Hemoglobin 12.1 g/dL (11.5-16.0); Mean Corpuscular HGB 25.1 pg (26.0-34.0); Mean Corpuscular HGB Conc 31.6 g/dL (31.5-36.5); Mean Corpuscular Volume 80 fL (80-100); Platelet Count 445 K/mm3 (150-400); RDW Coefficient Variation 15.6 % (11.7-14.2); Red Blood Cell Count 4.82 M/mm3 (3.80-5.20); White Blood Cell Count 11.37 K/mm3 (4.00-11.30)
[2021-05-29 23:54] LABS: IMMATURE GRAN ABSOLUTE AUTO 0.02 K/mm3 (0.00-0.10); IMMATURE GRAN PERCENT AUTO 0 % (0-1); LYMPHOCYTES ABSOLUTE AUTO 5.42 K/mm3 (0.84-5.20); LYMPHOCYTES PERCENT AUTO 48 % (21-46); MONOCYTES ABSOLUTE AUTO 1.33 K/mm3 (0.16-1.47); MONOCYTES PERCENT AUTO 12 % (4-13); NEUTROPHILS ABSOLUTE AUTO 4.04 K/mm3 (1.96-9.15); NEUTROPHILS PERCENT AUTO 36 % (41-73)
[2021-05-30 00:08] LABS: Alanine Aminotransfer (ALT/SGP 22 U/L (12-78); Albumin, Blood 3.2 g/dL (3.4-5.0); Albumin/Globulin Ratio 0.9 (0.8-1.8); Alk Phos 82 U/L (50-136); Anion Gap 6 mmol/L (6-16); Aspartate Aminotrans (AST/SGOT 17 U/L (12-37); Bilirubin, Total 0.5 mg/dL (0.1-1.0); Blood Urea Nitrogen 9 mg/dL (8-24); Bun/Creatinine Ratio 11.2 (12.0-20.0); CO2, Blood 26 mmol/L (21-32); Chloride, Blood 107 mmol/L (98-108); Globulin, Blood 3.6 g/dL (2.2-4.0); Glomerular Filtration Rate >60 (60-); Glucose, Blood 134 mg/dL (70-99); Potassium, Blood 3.7 mmol/L (3.5-5.5); Sodium, Blood 139 mmol/L (136-145); Total Protein, Blood 6.8 g/dL (6.4-8.2); Troponin I <0.015 ng/mL (0.000-0.040)
[2021-05-30] MEDS ORDERED: Prednisone20 MG PO (03:37)
[2021-05-30] MEDS ORDERED: AZIT250 PO (03:37)
== END 2021-05-30 04:24 | disposition home or self-care (01) ==
LOC: ER 23:22
PROVIDERS: Emergency Medicine
DX: J44.1 Chronic obstructive pulmonary disease with (acute) exacerbation (principal); I10 Essential (primary) hypertension; I48.91 Unspecified atrial fibrillation; Z88.6 Allergy status to analgesic agent; Z88.8 Allergy status to other drugs, medicaments and biological substances; Z79.899 Other long term (current) drug therapy; Z79.82 Long term (current) use of aspirin; Z79.84 Long term (current) use of oral hypoglycemic drugs; Z99.81 Dependence on supplemental oxygen; Z86.73 Personal history of transient ischemic attack (TIA), and cerebral infarction without residual deficits
CPT/HCPCS: 36415; 71045; 80053; 84484; 85025; 93005; 93010; 94644; 94645; 96374; 96375; 99285-25; A9270; J2405; J2930

== ENCOUNTER 2021-06-10 02:38 | Emergency (ER) | payer MEDICARE ==
[~2021-06-10] VITALS: Ht 152.4 cm; Wt 71.7 kg
[2021-06-10 03:24] LABS: BASOPHILS ABSOLUTE AUTO 0.08 K/mm3 (0.00-0.23); BASOPHILS PERCENT AUTO 1 % (0-2); EOSINOPHILS PERCENT AUTO 3 % (0-6); Hematocrit 39.1 % (33.0-51.0); Hemoglobin 12.4 g/dL (11.5-16.0); IMMATURE GRAN ABSOLUTE AUTO 0.03 K/mm3 (0.00-0.10); IMMATURE GRAN PERCENT AUTO 0 % (0-1); LYMPHOCYTES ABSOLUTE AUTO 4.76 K/mm3 (0.84-5.20); LYMPHOCYTES PERCENT AUTO 42 % (21-46); MONOCYTES ABSOLUTE AUTO 1.18 K/mm3 (0.16-1.47); MONOCYTES PERCENT AUTO 10 % (4-13); Mean Corpuscular HGB 25.1 pg (26.0-34.0); Mean Corpuscular HGB Conc 31.7 g/dL (31.5-36.5); Mean Corpuscular Volume 79 fL (80-100); NEUTROPHILS ABSOLUTE AUTO 5.03 K/mm3 (1.96-9.15); NEUTROPHILS PERCENT AUTO 44 % (41-73); Platelet Count 458 K/mm3 (150-400); RDW Coefficient Variation 15.9 % (11.7-14.2); RDW Standard Deviation 45.2 fL (35.1-46.3); Red Blood Cell Count 4.95 M/mm3 (3.80-5.20); White Blood Cell Count 11.38 K/mm3 (4.00-11.30)
[2021-06-10 03:39] LABS: Alanine Aminotransfer (ALT/SGP 17 U/L (12-78); Albumin, Blood 3.5 g/dL (3.4-5.0); Alk Phos 67 U/L (50-136); Anion Gap 7 mmol/L (6-16); Aspartate Aminotrans (AST/SGOT 13 U/L (12-37); Bilirubin, Total 0.3 mg/dL (0.1-1.0); Blood Urea Nitrogen 12 mg/dL (8-24); Bun/Creatinine Ratio 17.7 (12.0-20.0); CO2, Blood 25 mmol/L (21-32); Calcium, Blood 9.2 mg/dL (8.5-10.1); Chloride, Blood 110 mmol/L (98-108); Creatinine, Blood 0.68 mg/dL (0.40-1.00); Globulin, Blood 3.5 g/dL (2.2-4.0); Glomerular Filtration Rate >60 (60-); Glucose, Blood 103 mg/dL (70-99); Potassium, Blood 3.4 mmol/L (3.5-5.5); Sodium, Blood 142 mmol/L (136-145); Troponin I <0.015 ng/mL (0.000-0.040)
[2021-06-10] MEDS ORDERED: Prednisone20 MG PO (05:18)
[2021-06-14] MEDS ORDERED: PRED20 PO (17:47)
[2021-06-14] MEDS ORDERED: DOXY100 PO (17:47)
== END 2021-06-10 05:20 | disposition home or self-care (01) ==
LOC: ER 02:38
PROVIDERS: Emergency Medicine
DX: J44.1 Chronic obstructive pulmonary disease with (acute) exacerbation (principal); I10 Essential (primary) hypertension; I48.91 Unspecified atrial fibrillation; Z88.6 Allergy status to analgesic agent; Z88.8 Allergy status to other drugs, medicaments and biological substances; Z79.899 Other long term (current) drug therapy; Z79.82 Long term (current) use of aspirin; Z79.84 Long term (current) use of oral hypoglycemic drugs; Z86.73 Personal history of transient ischemic attack (TIA), and cerebral infarction without residual deficits; Z87.891 Personal history of nicotine dependence
CPT/HCPCS: 36415; 71045; 80053; 83880; 84484; 85025; 93005; 93010; 94644; 96374; 96375; 99285-25; A9270; J2060; J2405; J2930

== ENCOUNTER 2021-07-09 09:42 | Emergency (ER) | payer MEDICARE ==
[~2021-07-09] VITALS: Ht 162.6 cm; Wt 77.1 kg
[~2021-07-09 09:42] MED LIST changes: +DOXY100 PO
[2021-07-09] MEDS ORDERED: Roxicodone5 MG PO (10:13)
== END 2021-07-09 10:41 | disposition home or self-care (01) ==
LOC: ER 09:42
DX: R07.81 Pleurodynia (principal); I10 Essential (primary) hypertension; J44.9 Chronic obstructive pulmonary disease, unspecified; I48.91 Unspecified atrial fibrillation; Z79.899 Other long term (current) drug therapy; Z88.8 Allergy status to other drugs, medicaments and biological substances
CPT/HCPCS: 99283; A9270

== ENCOUNTER 2021-07-31 03:59 | Emergency (ER) | payer MEDICARE ==
[~2021-07-31] VITALS: Ht 152.4 cm; Wt 52.2 kg
[2021-07-31] MEDS ORDERED: AZIT250 PO (06:04)
[2021-07-31] MEDS ORDERED: PRED20 PO (06:04)
== END 2021-07-31 06:16 | disposition home or self-care (01) ==
LOC: ER 03:59
DX: J44.1 Chronic obstructive pulmonary disease with (acute) exacerbation (principal); Z88.6 Allergy status to analgesic agent; Z88.8 Allergy status to other drugs, medicaments and biological substances; Z79.899 Other long term (current) drug therapy; Z79.82 Long term (current) use of aspirin; Z79.84 Long term (current) use of oral hypoglycemic drugs; Z79.52 Long term (current) use of systemic steroids; I10 Essential (primary) hypertension; I48.91 Unspecified atrial fibrillation; Z87.891 Personal history of nicotine dependence
CPT/HCPCS: 71045; 93005; 93010; 99284-25; J7512

== ENCOUNTER 2021-08-28 13:58 | Emergency (ER) | payer MEDICARE ==
[~2021-08-28] VITALS: Ht 152.4 cm; Wt 54.4 kg
[2021-08-28 14:28] LABS: BASOPHILS ABSOLUTE AUTO 0.06 K/mm3 (0.00-0.23); BASOPHILS PERCENT AUTO 1 % (0-2); EOSINOPHILS ABSOLUTE AUTO 0.15 K/mm3 (0.00-0.68); EOSINOPHILS PERCENT AUTO 2 % (0-6); Hematocrit 34.7 % (33.0-51.0); Hemoglobin 10.8 g/dL (11.5-16.0); IMMATURE GRAN ABSOLUTE AUTO 0.01 K/mm3 (0.00-0.10); IMMATURE GRAN PERCENT AUTO 0 % (0-1); LYMPHOCYTES ABSOLUTE AUTO 1.93 K/mm3 (0.84-5.20); LYMPHOCYTES PERCENT AUTO 24 % (21-46); MONOCYTES ABSOLUTE AUTO 0.86 K/mm3 (0.16-1.47); MONOCYTES PERCENT AUTO 11 % (4-13); Mean Corpuscular HGB 23.9 pg (26.0-34.0); Mean Corpuscular HGB Conc 31.1 g/dL (31.5-36.5); Mean Corpuscular Volume 77 fL (80-100); Mean Platelet Volume 9.6 fL (9.1-12.4); NEUTROPHILS ABSOLUTE AUTO 4.92 K/mm3 (1.96-9.15); NEUTROPHILS PERCENT AUTO 62 % (41-73); Platelet Count 391 K/mm3 (150-400); RDW Coefficient Variation 18.3 % (11.7-14.2); RDW Standard Deviation 50.6 fL (35.1-46.3); Red Blood Cell Count 4.52 M/mm3 (3.80-5.20); White Blood Cell Count 7.93 K/mm3 (4.00-11.30)
[2021-08-28 14:52] LABS: Alanine Aminotransfer (ALT/SGP 22 U/L (12-78); Albumin, Blood 3.3 g/dL (3.4-5.0); Albumin/Globulin Ratio 0.9 (0.8-1.8); Alk Phos 88 U/L (50-136); Anion Gap 6 mmol/L (6-16); Aspartate Aminotrans (AST/SGOT 19 U/L (12-37); Bilirubin, Total 0.3 mg/dL (0.1-1.0); Blood Urea Nitrogen 7 mg/dL (8-24); Bun/Creatinine Ratio 12.5 (12.0-20.0); CO2, Blood 27 mmol/L (21-32); Calcium, Blood 9.2 mg/dL (8.5-10.1); Chloride, Blood 107 mmol/L (98-108); Creatinine, Blood 0.56 mg/dL (0.40-1.00); Globulin, Blood 3.5 g/dL (2.2-4.0); Glomerular Filtration Rate >60 (60-); Glucose, Blood 138 mg/dL (70-99); Potassium, Blood 3.9 mmol/L (3.5-5.5); Sodium, Blood 140 mmol/L (136-145); Total Protein, Blood 6.8 g/dL (6.4-8.2); Troponin I <0.015 ng/mL (0.000-0.040)
[2021-09-02] MEDS ORDERED: SENNA LAXATIVE8.6 MG PO (18:07)
== END 2021-08-28 17:50 | disposition home or self-care (01) ==
LOC: ER 13:58
PROVIDERS: Emergency Medicine
DX: J44.1 Chronic obstructive pulmonary disease with (acute) exacerbation (principal); Z88.6 Allergy status to analgesic agent; Z88.8 Allergy status to other drugs, medicaments and biological substances; Z79.899 Other long term (current) drug therapy; Z79.82 Long term (current) use of aspirin; Z79.84 Long term (current) use of oral hypoglycemic drugs; Z79.52 Long term (current) use of systemic steroids; J43.9 Emphysema, unspecified; Z86.73 Personal history of transient ischemic attack (TIA), and cerebral infarction without residual deficits; I10 Essential (primary) hypertension; I48.91 Unspecified atrial fibrillation; F17.200 Nicotine dependence, unspecified, uncomplicated
CPT/HCPCS: 36415; 71045; 80053; 84484; 85025; 93005; 93010; 94640; 96374; 96375; 99285-25; A9270; J2405; J2930; J3010

== ENCOUNTER 2021-08-29 17:40 | Inpatient (IN) | payer MEDICARE ==
[~2021-08-29] VITALS: Ht 152.4 cm; Wt 54.4 kg
[2021-08-29 18:35] LABS: BASOPHILS ABSOLUTE AUTO 0.02 K/mm3 (0.00-0.23); BASOPHILS PERCENT AUTO 0 % (0-2); EOSINOPHILS PERCENT AUTO 0 % (0-6); Hemoglobin 10.4 g/dL (11.5-16.0); IMMATURE GRAN ABSOLUTE AUTO 0.03 K/mm3 (0.00-0.10); IMMATURE GRAN PERCENT AUTO 0 % (0-1); LYMPHOCYTES ABSOLUTE AUTO 2.14 K/mm3 (0.84-5.20); LYMPHOCYTES PERCENT AUTO 18 % (21-46); MONOCYTES ABSOLUTE AUTO 1.15 K/mm3 (0.16-1.47); MONOCYTES PERCENT AUTO 10 % (4-13); Mean Corpuscular HGB 23.4 pg (26.0-34.0); Mean Corpuscular HGB Conc 30.6 g/dL (31.5-36.5); Mean Corpuscular Volume 76 fL (80-100); Mean Platelet Volume 9.9 fL (9.1-12.4); NEUTROPHILS ABSOLUTE AUTO 8.49 K/mm3 (1.96-9.15); NEUTROPHILS PERCENT AUTO 72 % (41-73); Platelet Count 394 K/mm3 (150-400); RDW Coefficient Variation 18.1 % (11.7-14.2); RDW Standard Deviation 49.7 fL (35.1-46.3); Red Blood Cell Count 4.45 M/mm3 (3.80-5.20); White Blood Cell Count 11.83 K/mm3 (4.00-11.30)
[2021-08-29 19:09] LABS: Alanine Aminotransfer (ALT/SGP 24 U/L (12-78); Albumin, Blood 3.6 g/dL (3.4-5.0); Albumin/Globulin Ratio 1.2 (0.8-1.8); Alk Phos 88 U/L (50-136); Anion Gap 6 mmol/L (6-16); Aspartate Aminotrans (AST/SGOT 21 U/L (12-37); Bilirubin, Total 0.3 mg/dL (0.1-1.0); Blood Urea Nitrogen 15 mg/dL (8-24); CO2, Blood 25 mmol/L (21-32); Calcium, Blood 9.3 mg/dL (8.5-10.1); Chloride, Blood 107 mmol/L (98-108); Globulin, Blood 3.1 g/dL (2.2-4.0); Glomerular Filtration Rate >60 (60-); Glucose, Blood 122 mg/dL (70-99); Potassium, Blood 3.9 mmol/L (3.5-5.5); Sodium, Blood 138 mmol/L (136-145); Total Protein, Blood 6.7 g/dL (6.4-8.2); Troponin I <0.015 ng/mL (0.000-0.040)
[2021-08-29 22:14] LABS: Influenza A, PCR NEGATIVE (NEGATIVE); Influenza B, PCR NEGATIVE (NEGATIVE); Resp Syncytial Virus, PCR NEGATIVE (NEGATIVE); SARS-Cov-2 (COVID-19) PCR, MMC NEGATIVE (NEGATIVE)
[2021-08-29 23:55] LABS: Base Excess Venous 0.2 mmol/L; Bicarbonate Venous 24.7 mmol/L (24.0-30.0); PO2 Venous 197 mmHg (38-42); pH Blood Venous 7.43 (7.34-7.37)
[2021-08-30] MEDS ORDERED: AMLO5 PO (00:44)
[2021-08-30] MEDS ORDERED: MORPHINE SULFATE INH (00:47)
[2021-08-30] MEDS ORDERED: SODIUM CHLORIDE INH (00:51)
[2021-08-30] MEDS ORDERED: LORA.5 PO ×2 (00:52→01:39)
[2021-08-30] MEDS ORDERED: CONSTULOSE10 GM/15 M PO (00:53)
[2021-08-30] MEDS ORDERED: AZIT250 PO (00:54)
[2021-08-30] MEDS ORDERED: Zaleplon5 MG PO (00:57)
[2021-08-30] MEDS ORDERED: METO25ER PO (02:36)
[2021-08-30] MEDS ORDERED: PRED20 PO (02:39)
[2021-08-30 05:30] LABS: BASOPHILS PERCENT AUTO 0 % (0-2); EOSINOPHILS PERCENT AUTO 0 % (0-6); Hematocrit 34.7 % (33.0-51.0); Hemoglobin 10.4 g/dL (11.5-16.0); IMMATURE GRAN ABSOLUTE AUTO 0.03 K/mm3 (0.00-0.10); IMMATURE GRAN PERCENT AUTO 0 % (0-1); LYMPHOCYTES ABSOLUTE AUTO 0.62 K/mm3 (0.84-5.20); LYMPHOCYTES PERCENT AUTO 9 % (21-46); MONOCYTES ABSOLUTE AUTO 0.09 K/mm3 (0.16-1.47); MONOCYTES PERCENT AUTO 1 % (4-13); Mean Corpuscular HGB 23.2 pg (26.0-34.0); Mean Corpuscular Volume 78 fL (80-100); Mean Platelet Volume 9.9 fL (9.1-12.4); NEUTROPHILS ABSOLUTE AUTO 6.53 K/mm3 (1.96-9.15); NEUTROPHILS PERCENT AUTO 90 % (41-73); Platelet Count 382 K/mm3 (150-400); RDW Coefficient Variation 18.4 % (11.7-14.2); RDW Standard Deviation 51.1 fL (35.1-46.3); Red Blood Cell Count 4.48 M/mm3 (3.80-5.20); White Blood Cell Count 7.27 K/mm3 (4.00-11.30)
--- NOTE | 2021-08-30 05:43 | NUR ---
SHIFT SUMMARY: TONJA WAS ADMITTED LAST NIGHT FOR COPD EXACERBATION THAT STARTED 2-3 DAYS AGO. INCREASE IN SOB, CHEST TIGHTNESS, AND COUGH. PATIENT CONTINUES TO RECEIVE SECOND HAND SMOKE FROM INDOOR SMOKING AND OCCATIONALLY SMOKES HERSELF. LUNG SOUNDS WERE WHEEZES, TIGHT WITH DIMINISHED BASES. AOX3, INDEPENDENT. DYSPENIC WITH EXERTION, ON 3.5 LITERS SATS MID 90'S. STATES SHE GETS WORN OUT EASILY, ONLY IS ABLE TO DO SHORT DISTANCE UNLESS SHE USES WC. HIGH ANXIETY, DECREASE IN APPETITE. COVID NEGATIVE. VS WNL, AFEBRILE. FOLLOWS DIRECTIONS WELL. DURING MED REC FOUND THAT SHE WAS TAKING 650MG OF ASPRIN A DAY ALONG WITH HER PREDNISONE. SHE IS ALLERGIC TO NSAIDS WHICH WE DISCUSSED WHICH MEDICATIONS ARE CLASSIFIED THIS. SHE HAS BEEN COMPLAINING OF ALOT OF ABDOMINAL PAIN AND DISCOMFORT, ESPECIALLY WITH HER MEDS. ENCOURGED HER TO TALK TO HER MD BUT NOT TO TAKE THE ASPRIN. THIS MEDICATION IS NOT MD ORDERED, STATES SHE JUST THOUGHT SHE SHOULD TAKE IT. DENIES BLOODY STOOL. AFTER A FEW NEB TX SHE HAS IMPROVED AND MIGHT BE READY TO GO HOME TODAY. WILL REPORT TO DAYSMAFT. CALL LIGHT IN REACH.
[2021-08-30 06:59] LABS: Alanine Aminotransfer (ALT/SGP 23 U/L (12-78); Albumin, Blood 3.3 g/dL (3.4-5.0); Albumin/Globulin Ratio 1.1 (0.8-1.8); Alk Phos 83 U/L (50-136); Anion Gap 7 mmol/L (6-16); Aspartate Aminotrans (AST/SGOT 16 U/L (12-37); Bilirubin, Total 0.4 mg/dL (0.1-1.0); Blood Urea Nitrogen 13 mg/dL (8-24); Bun/Creatinine Ratio 25.2 (12.0-20.0); CO2, Blood 25 mmol/L (21-32); Calcium, Blood 8.5 mg/dL (8.5-10.1); Chloride, Blood 110 mmol/L (98-108); Creatinine, Blood 0.52 mg/dL (0.40-1.00); Glomerular Filtration Rate >60 (60-); Glucose, Blood 174 mg/dL (70-99); Sodium, Blood 142 mmol/L (136-145); Total Protein, Blood 6.3 g/dL (6.4-8.2)
--- NOTE | 2021-08-30 18:29 | NUR ---
SHIFT SUMMARY PT ADMITTED FOR COPD EXAC. PT'S BREATHING HAS BEEN FINE THIS SHIFT BUT SHE STARTED HAVING ISSUES WITH NAUSEA, ABD PAIN, AND ANXIETY. TREATED PER EMR. PT REPORTED BEING CONSTIPATED AND IS NOW HAVING BM'S AFTER BEING TREATED PER EMR. PT REPORTED THAT TAKING ACETAMINOPHEN HAS CAUSED HER TO HAVE RESTLESS LEGS. PT HAS TAKEN NORCO IN THE PAST WITHOUT ANY ISSUES. PT REPORTED THAT WEARING SCD'S HAS HELPED WITH RESTLESS LEG SYMPTOMS. PT REMAINS ON 4 LITERS O2. VSS. WILL REPORT TO SPENCER CEDILLO.
--- NOTE | 2021-08-31 04:06 | NUR ---
SHIFT SUMMARY 67 YR F ADMITTED ON 08/30/21 FOR COPD EXACERBATION. LIMITED CODE. PT HAS WHEEZING IN BOTH LUNGS BUT SEEMS TO BE BREATHING MUCH EASIER TODAY. SHE HAS BEEN VERY ANXIOUS WITH AT LEAST ONE PANIC ATTACK ON THIS SHIFT. SHE C/O PAIN IN HER ABDOMEN AND A HEADACHE AND ASKED FOR PAIN MEDS. SHE WAS GIVE TRAMADOL 25MG Q4H PRN. SHE HAS BEEN UNABLE TO SLEEP AND WAS UP MULTIPLE TIMES THROUGHOUT THE NIGHT. SHE IS INDEPENDANT WITH AMBULATION. RIGHT WRIST IV WAS DISCONTINUED PT C/O IT BEING VERY PAINFUL. A NEW IV WAS PLACED IN THE LEFT FOREARM.
--- NOTE | 2021-08-31 07:53 | NUR ---
PT LEAVING AMA AMA PAPER SIGNED, REVIEWED WITH PT PROS AND CONS OF STAYING VS LEAVING. IV REMOVED PRIOR TO LEAVING. ALL BELONGINGS GATHERED, PT LEFT VIA WHEELCHAIR TO MEET IN LOBBY WITH ALL PERSONAL BELONGINGS AND PORTABLE O2 MACHINE. DR SOUZA NOTIFIED BEFORE AMA SIGNED. DURING REPORT FROM NIGHT NURSE IT WAS NOTED THAT PT HAS BEEN UP ALL NIGHT PACING FLOOR AND REQUESTING MORE PAIN MEDICATIONS WHICH WERE GIVEN RX. DURING REPORT PT CAME OUT OF ROOM TWICE TO SAY SHE WAS LEAVING. THIS NURSE WITH NIGHT NURSE TALKED WITH PT ABOUT AT LEAST WAITING UNTIL DR SALCEDO. AFTER REPORT PT STATED HER IS SICK AND SHE NEEDS TO GO HOME TO BE WITH HIM, ALSO WHEN ASK WHAT SYMPTOMS HER HAS SHE STATED SHE DOES NOT KNOW BUT SHE "CAUGHT THE LAST NURSE'S COLD WITH THE SCRATCHY THROAT."
[2021-09-01] MEDS ORDERED: MORP10S NEB (16:07)
[2021-09-01] MEDS ORDERED: PRED20 PO (16:47)
[2021-09-01] MEDS ORDERED: LORA.5 PO (16:49)
[2021-09-02] MEDS ORDERED: SENNA LAXATIVE8.6 MG PO (18:07)
== END 2021-08-31 07:37 | disposition left against medical advice (07) | DRG 189 ==
LOC: ER 17:40 → MEDS 17:41
PROVIDERS: Emergency Medicine; Family Medicine; Student in an Organized Health Care Education/Training Program; ADMIT Internal Medicine
DX: J96.21 Acute and chronic respiratory failure with hypoxia (principal); J44.1 Chronic obstructive pulmonary disease with (acute) exacerbation; E44.0 Moderate protein-calorie malnutrition; R64 Cachexia; J96.11 Chronic respiratory failure with hypoxia; I10 Essential (primary) hypertension; G47.00 Insomnia, unspecified; Z66 Do not resuscitate; Z68.23 Body mass index [BMI] 23.0-23.9, adult; Z20.822 Contact with and (suspected) exposure to COVID-19; Z88.8 Allergy status to other drugs, medicaments and biological substances; Z99.81 Dependence on supplemental oxygen; F41.0 Panic disorder [episodic paroxysmal anxiety]; Z86.73 Personal history of transient ischemic attack (TIA), and cerebral infarction without residual deficits; B19.20 Unspecified viral hepatitis C without hepatic coma; K74.60 Unspecified cirrhosis of liver; Z98.51 Tubal ligation status; Z90.49 Acquired absence of other specified parts of digestive tract; Z98.890 Other specified postprocedural states; Z79.899 Other long term (current) drug therapy; K59.09 Other constipation; K21.9 Gastro-esophageal reflux disease without esophagitis
CPT/HCPCS: 0241U; 36415; 71045; 80053; 82803; 83880; 84484; 85025; 93005; 93010; 94640; 94644; 94762; 96367; 96372; 96374; 96375; 96376; 97161; 99285-25; A9270; G0378; J0456; J1650; J2550; J2765; J2930; J3010; J7030; J7050; J7512

== ENCOUNTER 2021-09-01 14:30 | Emergency (ER) | payer MEDICARE ==
[~2021-09-01] VITALS: Ht 152.4 cm; Wt 51.7 kg
[~2021-09-01 14:30] MED LIST changes: +CONSTULOSE10 GM/15 M PO; +LORA.5 PO; +METO25ER PO; +MORPHINE SULFATE INH; +SODIUM CHLORIDE INH
[2021-09-01 15:04] LABS: BASOPHILS ABSOLUTE AUTO 0.01 K/mm3 (0.00-0.23); BASOPHILS PERCENT AUTO 0 % (0-2); EOSINOPHILS PERCENT AUTO 0 % (0-6); Hematocrit 36.4 % (33.0-51.0); Hemoglobin 11.4 g/dL (11.5-16.0); IMMATURE GRAN ABSOLUTE AUTO 0.07 K/mm3 (0.00-0.10); IMMATURE GRAN PERCENT AUTO 1 % (0-1); LYMPHOCYTES ABSOLUTE AUTO 1.01 K/mm3 (0.84-5.20); LYMPHOCYTES PERCENT AUTO 9 % (21-46); MONOCYTES ABSOLUTE AUTO 1.12 K/mm3 (0.16-1.47); MONOCYTES PERCENT AUTO 10 % (4-13); Mean Corpuscular HGB 23.7 pg (26.0-34.0); Mean Corpuscular HGB Conc 31.3 g/dL (31.5-36.5); Mean Corpuscular Volume 76 fL (80-100); Mean Platelet Volume 9.7 fL (9.1-12.4); NEUTROPHILS ABSOLUTE AUTO 8.92 K/mm3 (1.96-9.15); NEUTROPHILS PERCENT AUTO 80 % (41-73); Platelet Count 413 K/mm3 (150-400); RDW Coefficient Variation 18.2 % (11.7-14.2); RDW Standard Deviation 49.1 fL (35.1-46.3); Red Blood Cell Count 4.82 M/mm3 (3.80-5.20); White Blood Cell Count 11.13 K/mm3 (4.00-11.30)
[2021-09-01 15:15] LABS: Bicarbonate Venous 28.4 mmol/L (24.0-30.0); PCO2 Venous 42.9 mmHg (38-42); pH Blood Venous 7.44 (7.34-7.37)
[2021-09-01 15:16] LABS: Alanine Aminotransfer (ALT/SGP 56 U/L (12-78); Albumin, Blood 3.4 g/dL (3.4-5.0); Alk Phos 81 U/L (50-136); Anion Gap 8 mmol/L (6-16); Aspartate Aminotrans (AST/SGOT 45 U/L (12-37); Bilirubin, Direct 0.1 mg/dL (0.0-0.3); Bilirubin, Indirect 0.2 mg/dL (0.1-0.7); Bilirubin, Total 0.3 mg/dL (0.1-1.0); Blood Urea Nitrogen 12 mg/dL (8-24); Bun/Creatinine Ratio 22.2 (12.0-20.0); CO2, Blood 28 mmol/L (21-32); Calcium, Blood 8.9 mg/dL (8.5-10.1); Chloride, Blood 105 mmol/L (98-108); Creatinine, Blood 0.54 mg/dL (0.40-1.00); Globulin, Blood 3.3 g/dL (2.2-4.0); Glomerular Filtration Rate >60 (60-); Glucose, Blood 143 mg/dL (70-99); Potassium, Blood 2.9 mmol/L (3.5-5.5); Sodium, Blood 141 mmol/L (136-145); Total Protein, Blood 6.7 g/dL (6.4-8.2)
[2021-09-01] MEDS ORDERED: MORP10S NEB (16:07)
[2021-09-01 16:11] LABS: Influenza A, PCR NEGATIVE (NEGATIVE); Influenza B, PCR NEGATIVE (NEGATIVE); Resp Syncytial Virus, PCR NEGATIVE (NEGATIVE); SARS-Cov-2 (COVID-19) PCR, MMC NEGATIVE (NEGATIVE)
[2021-09-01] MEDS ORDERED: PRED20 PO (16:47)
[2021-09-01] MEDS ORDERED: LORA.5 PO (16:49)
[2021-09-02] MEDS ORDERED: SENNA LAXATIVE8.6 MG PO (18:07)
== END 2021-09-01 17:25 | disposition home or self-care (01) ==
LOC: ER 14:30
PROVIDERS: Student in an Organized Health Care Education/Training Program
DX: J44.9 Chronic obstructive pulmonary disease, unspecified (principal); F41.9 Anxiety disorder, unspecified; R00.0 Tachycardia, unspecified; R10.13 Epigastric pain; Z88.6 Allergy status to analgesic agent; Z88.8 Allergy status to other drugs, medicaments and biological substances; Z79.899 Other long term (current) drug therapy; Z79.82 Long term (current) use of aspirin; Z79.52 Long term (current) use of systemic steroids; Z86.73 Personal history of transient ischemic attack (TIA), and cerebral infarction without residual deficits; I10 Essential (primary) hypertension; I48.91 Unspecified atrial fibrillation; F17.210 Nicotine dependence, cigarettes, uncomplicated
CPT/HCPCS: 0241U; 36415; 71045; 80048; 80076; 82803; 83690; 85025; 93005; 93010; 94640; 96374; 96375; 96376; 99285-25; A9270; J2270; J2405; J2930

== ENCOUNTER 2021-09-03 01:22 | Emergency (ER) | payer MEDICARE ==
[~2021-09-03] VITALS: Ht 152.4 cm; Wt 51.7 kg
[~2021-09-03 01:22] MED LIST changes: +MORP10S NEB; +SENNA LAXATIVE8.6 MG PO
[2021-09-03 01:39] LABS: Base Excess Venous 8.4 mmol/L; Bicarbonate Venous 31.4 mmol/L (24.0-30.0); PCO2 Venous 44.9 mmHg (38-42); PO2 Venous 152 mmHg (38-42); pH Blood Venous 7.46 (7.34-7.37)
[2021-09-03 02:10] LABS: BASOPHILS ABSOLUTE AUTO 0.01 K/mm3 (0.00-0.23); BASOPHILS PERCENT AUTO 0 % (0-2); EOSINOPHILS ABSOLUTE AUTO 0.08 K/mm3 (0.00-0.68); EOSINOPHILS PERCENT AUTO 1 % (0-6); Hematocrit 34.5 % (33.0-51.0); Hemoglobin 10.6 g/dL (11.5-16.0); IMMATURE GRAN ABSOLUTE AUTO 0.05 K/mm3 (0.00-0.10); IMMATURE GRAN PERCENT AUTO 1 % (0-1); LYMPHOCYTES ABSOLUTE AUTO 3.19 K/mm3 (0.84-5.20); LYMPHOCYTES PERCENT AUTO 30 % (21-46); MONOCYTES ABSOLUTE AUTO 1.27 K/mm3 (0.16-1.47); MONOCYTES PERCENT AUTO 12 % (4-13); Mean Corpuscular HGB 23.3 pg (26.0-34.0); Mean Corpuscular HGB Conc 30.7 g/dL (31.5-36.5); Mean Corpuscular Volume 76 fL (80-100); Mean Platelet Volume 10.3 fL (9.1-12.4); NEUTROPHILS ABSOLUTE AUTO 6.19 K/mm3 (1.96-9.15); NEUTROPHILS PERCENT AUTO 57 % (41-73); Platelet Count 390 K/mm3 (150-400); RDW Coefficient Variation 18.3 % (11.7-14.2); RDW Standard Deviation 50.1 fL (35.1-46.3); Red Blood Cell Count 4.55 M/mm3 (3.80-5.20); White Blood Cell Count 10.79 K/mm3 (4.00-11.30)
[2021-09-03 02:12] LABS: Alanine Aminotransfer (ALT/SGP 38 U/L (12-78); Albumin, Blood 3.1 g/dL (3.4-5.0); Alk Phos 75 U/L (50-136); Anion Gap 6 mmol/L (6-16); Aspartate Aminotrans (AST/SGOT 16 U/L (12-37); Bilirubin, Total 0.3 mg/dL (0.1-1.0); Blood Urea Nitrogen 10 mg/dL (8-24); Bun/Creatinine Ratio 17.7 (12.0-20.0); CO2, Blood 30 mmol/L (21-32); Calcium, Blood 8.6 mg/dL (8.5-10.1); Chloride, Blood 107 mmol/L (98-108); Creatinine, Blood 0.57 mg/dL (0.40-1.00); Glomerular Filtration Rate >60 (60-); Glucose, Blood 106 mg/dL (70-99); Potassium, Blood 2.9 mmol/L (3.5-5.5); Sodium, Blood 143 mmol/L (136-145); Total Protein, Blood 6.1 g/dL (6.4-8.2); Troponin I <0.015 ng/mL (0.000-0.040)
[2021-09-03 02:40] LABS: Influenza A, PCR NEGATIVE (NEGATIVE); Influenza B, PCR NEGATIVE (NEGATIVE); Resp Syncytial Virus, PCR NEGATIVE (NEGATIVE); SARS-Cov-2 (COVID-19) PCR, MMC NEGATIVE (NEGATIVE)
[2021-09-04] MEDS ORDERED: DOCU100 PO (12:29)
[2021-09-04] MEDS ORDERED: ONDA4ODT MM (12:32)
== END 2021-09-03 04:00 | disposition home or self-care (01) ==
LOC: ER 01:22
PROVIDERS: Emergency Medicine
DX: J44.1 Chronic obstructive pulmonary disease with (acute) exacerbation (principal); I10 Essential (primary) hypertension; I48.91 Unspecified atrial fibrillation; Z20.822 Contact with and (suspected) exposure to COVID-19; Z88.6 Allergy status to analgesic agent; Z88.5 Allergy status to narcotic agent; Z88.8 Allergy status to other drugs, medicaments and biological substances; Z79.899 Other long term (current) drug therapy; Z79.52 Long term (current) use of systemic steroids; Z87.891 Personal history of nicotine dependence
CPT/HCPCS: 0241U; 71045; 80053; 82803; 83880; 84484; 85025; 93005; 93010; 94644; 96372; 99285-25; A9270; J2930

== ENCOUNTER 2021-09-03 19:35 | Inpatient (IN) | payer MEDICARE ==
[~2021-09-03] VITALS: Ht 152.4 cm; Wt 51.9 kg
[2021-09-03 20:05] LABS: BASOPHILS ABSOLUTE AUTO 0.01 K/mm3 (0.00-0.23); BASOPHILS PERCENT AUTO 0 % (0-2); EOSINOPHILS PERCENT AUTO 0 % (0-6); Hematocrit 36.1 % (33.0-51.0); Hemoglobin 11.2 g/dL (11.5-16.0); IMMATURE GRAN ABSOLUTE AUTO 0.05 K/mm3 (0.00-0.10); IMMATURE GRAN PERCENT AUTO 0 % (0-1); LYMPHOCYTES ABSOLUTE AUTO 1.67 K/mm3 (0.84-5.20); LYMPHOCYTES PERCENT AUTO 14 % (21-46); MONOCYTES ABSOLUTE AUTO 0.83 K/mm3 (0.16-1.47); MONOCYTES PERCENT AUTO 7 % (4-13); Mean Corpuscular HGB 23.4 pg (26.0-34.0); Mean Corpuscular Volume 75 fL (80-100); Mean Platelet Volume 9.6 fL (9.1-12.4); NEUTROPHILS ABSOLUTE AUTO 9.53 K/mm3 (1.96-9.15); NEUTROPHILS PERCENT AUTO 79 % (41-73); Platelet Count 434 K/mm3 (150-400); RDW Coefficient Variation 18.2 % (11.7-14.2); RDW Standard Deviation 49.2 fL (35.1-46.3); Red Blood Cell Count 4.79 M/mm3 (3.80-5.20); White Blood Cell Count 12.09 K/mm3 (4.00-11.30)
[2021-09-03 20:23] LABS: Alanine Aminotransfer (ALT/SGP 44 U/L (12-78); Albumin, Blood 3.7 g/dL (3.4-5.0); Albumin/Globulin Ratio 1.1 (0.8-1.8); Alk Phos 81 U/L (50-136); Anion Gap 6 mmol/L (6-16); Aspartate Aminotrans (AST/SGOT 21 U/L (12-37); Bilirubin, Total 0.2 mg/dL (0.1-1.0); Blood Urea Nitrogen 13 mg/dL (8-24); Bun/Creatinine Ratio 22.1 (12.0-20.0); CO2, Blood 28 mmol/L (21-32); Chloride, Blood 103 mmol/L (98-108); Creatinine, Blood 0.59 mg/dL (0.40-1.00); Globulin, Blood 3.4 g/dL (2.2-4.0); Glomerular Filtration Rate >60 (60-); Glucose, Blood 128 mg/dL (70-99); Potassium, Blood 3.3 mmol/L (3.5-5.5); Sodium, Blood 137 mmol/L (136-145); Total Protein, Blood 7.1 g/dL (6.4-8.2); Troponin I <0.015 ng/mL (0.000-0.040)
[2021-09-03 20:40] LABS: Base Excess Venous 4.3 mmol/L; Bicarbonate Venous 27.8 mmol/L (24.0-30.0); PCO2 Venous 44.4 mmHg (38-42); PO2 Venous 188 mmHg (38-42); pH Blood Venous 7.42 (7.34-7.37)
[2021-09-03 21:11] LABS: Influenza A, PCR NEGATIVE (NEGATIVE); Influenza B, PCR NEGATIVE (NEGATIVE); Resp Syncytial Virus, PCR NEGATIVE (NEGATIVE)
[2021-09-03 21:24] LABS: SARS-Cov-2 (COVID-19) PCR, MMC POSITIVE (NEGATIVE)
--- NOTE | 2021-09-04 01:38 | NUR ---
PT ADMITTED FROM ER VIA STRETCHER, COVID POSITIVE, O2 AT 4L VIA N/C (2L IS HER BASELINE AT HOME) SATING 99%. C/O SYMPTOMATIC SOB WITH EXERTION, ANXIETY REAGARDING DIAGNOSIS. ASKING IMEDIATELY FOR PAIN MEDS AND ATIVAN IV. ORIENTED TO ROOM AND CALL BURNS SYSTEM, ABLE TO SPEAK IN COMPLETE SENTANCES, RR MILDLY ELEVATED AT 26 BUT NORMALIZES WITH REST. TELE SHOW SR/ST, BP MILDLY ELEVATED ON TRANSFER, BUT NORMALIZED ADTER PT SETTLED. IV MEDS PER NOV, ABLE TO TRANSFER TO AND FROM COMMODE WITH STEADY GAIT. BED LOCKED AND LOW, CALL BURNS IN REACH. NGUYEN HERNANDEZ
[2021-09-04 04:12] LABS: BASOPHILS ABSOLUTE AUTO 0.02 K/mm3 (0.00-0.23); BASOPHILS PERCENT AUTO 0 % (0-2); EOSINOPHILS PERCENT AUTO 0 % (0-6); Hematocrit 32.9 % (33.0-51.0); Hemoglobin 10.3 g/dL (11.5-16.0); IMMATURE GRAN ABSOLUTE AUTO 0.04 K/mm3 (0.00-0.10); IMMATURE GRAN PERCENT AUTO 0 % (0-1); LYMPHOCYTES ABSOLUTE AUTO 0.87 K/mm3 (0.84-5.20); LYMPHOCYTES PERCENT AUTO 8 % (21-46); MONOCYTES ABSOLUTE AUTO 0.27 K/mm3 (0.16-1.47); MONOCYTES PERCENT AUTO 3 % (4-13); Mean Corpuscular HGB 23.4 pg (26.0-34.0); Mean Corpuscular HGB Conc 31.3 g/dL (31.5-36.5); Mean Corpuscular Volume 75 fL (80-100); Mean Platelet Volume 9.9 fL (9.1-12.4); NEUTROPHILS PERCENT AUTO 89 % (41-73); Platelet Count 376 K/mm3 (150-400); RDW Coefficient Variation 18.3 % (11.7-14.2); RDW Standard Deviation 49.2 fL (35.1-46.3)
[2021-09-04 04:37] LABS: Alanine Aminotransfer (ALT/SGP 37 U/L (12-78); Albumin/Globulin Ratio 0.9 (0.8-1.8); Alk Phos 67 U/L (50-136); Anion Gap 6 mmol/L (6-16); Aspartate Aminotrans (AST/SGOT 34 U/L (12-37); Bilirubin, Total 0.3 mg/dL (0.1-1.0); Blood Urea Nitrogen 12 mg/dL (8-24); Bun/Creatinine Ratio 25.3 (12.0-20.0); CO2, Blood 28 mmol/L (21-32); Calcium, Blood 8.4 mg/dL (8.5-10.1); Chloride, Blood 105 mmol/L (98-108); Creatinine, Blood 0.48 mg/dL (0.40-1.00); Globulin, Blood 3.2 g/dL (2.2-4.0); Glomerular Filtration Rate >60 (60-); Glucose, Blood 156 mg/dL (70-99); Potassium, Blood 4.4 mmol/L (3.5-5.5); Sodium, Blood 139 mmol/L (136-145); Total Protein, Blood 6.2 g/dL (6.4-8.2)
[2021-09-04] MEDS ORDERED: DOCU100 PO (12:29)
[2021-09-04] MEDS ORDERED: ONDA4ODT MM (12:32)
--- NOTE | 2021-09-04 13:30 | NUR ---
DISCHARGE NOTE PT ALERT AND ORIENTED X 4. WAS AT BEDSIDE DURING DISCHARGE INSTRUCTIONS. THIS NURSE WENT OVER DISCHARGE INSTRUCTIONS WITH PATIENT AND PT SPOUSE INCUDING COVID QUARENTINE INFORMATION, NEW MEDICATIONS, MEDICATIONS TO DISCONTINUE, AND FOLLOW UP APPOINTMENTS. PT LEFT PCU AT 1301 VIA WHEELCHAIR ASSISTED BY ROGER MARRUFO AND . PT LEFT ROOM ON HOME 02, 3L VIA NC. PT WAS STABLE UPON DISCHARGE AND ALL OF PT PERSONAL BELONGINGS WERE WITH PT.
== END 2021-09-04 13:01 | disposition home or self-care (01) | DRG 177 ==
LOC: ER 19:35 → PCU 19:36
PROVIDERS: Emergency Medicine; ADMIT Internal Medicine
PROC: 8E0ZXY6 Isolation (ICD-10-PCS; principal; 2021-09-03)
PROC: XW033E5 Introduction of Remdesivir Anti-infective into Peripheral Vein, Percutaneous Approach, New Technology Group 5 (ICD-10-PCS; 2021-09-03)
PROC: 3E0333Z Introduction of Anti-inflammatory into Peripheral Vein, Percutaneous Approach (ICD-10-PCS; 2021-09-03)
PROC: XW033G6 Introduction of REGN-COV2 Monoclonal Antibody into Peripheral Vein, Percutaneous Approach, New Technology Group 6 (ICD-10-PCS; 2021-09-03)
DX: U07.1 COVID-19 (principal); J96.21 Acute and chronic respiratory failure with hypoxia; I48.20 Chronic atrial fibrillation, unspecified; B19.20 Unspecified viral hepatitis C without hepatic coma; Z23 Encounter for immunization; F41.0 Panic disorder [episodic paroxysmal anxiety]; J43.9 Emphysema, unspecified; K59.00 Constipation, unspecified; F17.210 Nicotine dependence, cigarettes, uncomplicated; K74.60 Unspecified cirrhosis of liver; Z98.41 Cataract extraction status, right eye; Z98.42 Cataract extraction status, left eye; Z99.81 Dependence on supplemental oxygen; Z86.73 Personal history of transient ischemic attack (TIA), and cerebral infarction without residual deficits; Z98.51 Tubal ligation status; Z90.49 Acquired absence of other specified parts of digestive tract; Z98.890 Other specified postprocedural states; Z88.8 Allergy status to other drugs, medicaments and biological substances; Z79.52 Long term (current) use of systemic steroids; Z79.899 Other long term (current) drug therapy
CPT/HCPCS: 0241U; 36415; 71045; 71260; 72170; 80053; 82803; 84484; 85025; 85379; 93005; 93010; 94640; 94644; 94760; 96365; 96375; 99285-25; A9270; C1751; J0248; J1650; J2060; J2405; J2930; J3010; J3475; J3480; J7030; J7040; M0243; Q0243; Q9967

== ENCOUNTER 2021-09-05 01:21 | Emergency (ER) | payer MEDICARE ==
[~2021-09-05] VITALS: Ht 160 cm; Wt 59.0 kg
[~2021-09-05 01:21] MED LIST changes: +ONDA4ODT MM
[2021-09-05 02:07] LABS: BASOPHILS ABSOLUTE AUTO 0.01 K/mm3 (0.00-0.23); BASOPHILS PERCENT AUTO 0 % (0-2); EOSINOPHILS PERCENT AUTO 0 % (0-6); Hematocrit 33.9 % (33.0-51.0); Hemoglobin 10.7 g/dL (11.5-16.0); IMMATURE GRAN ABSOLUTE AUTO 0.08 K/mm3 (0.00-0.10); IMMATURE GRAN PERCENT AUTO 1 % (0-1); LYMPHOCYTES ABSOLUTE AUTO 0.98 K/mm3 (0.84-5.20); LYMPHOCYTES PERCENT AUTO 7 % (21-46); MONOCYTES ABSOLUTE AUTO 0.71 K/mm3 (0.16-1.47); MONOCYTES PERCENT AUTO 5 % (4-13); Mean Corpuscular HGB 23.6 pg (26.0-34.0); Mean Corpuscular HGB Conc 31.6 g/dL (31.5-36.5); Mean Corpuscular Volume 75 fL (80-100); Mean Platelet Volume 9.7 fL (9.1-12.4); NEUTROPHILS ABSOLUTE AUTO 11.89 K/mm3 (1.96-9.15); NEUTROPHILS PERCENT AUTO 87 % (41-73); Platelet Count 363 K/mm3 (150-400); RDW Coefficient Variation 18.6 % (11.7-14.2); RDW Standard Deviation 49.5 fL (35.1-46.3); Red Blood Cell Count 4.53 M/mm3 (3.80-5.20); White Blood Cell Count 13.67 K/mm3 (4.00-11.30)
[2021-09-05 02:27] LABS: Troponin I <0.015 ng/mL (0.000-0.040)
[2021-09-05 02:28] LABS: Alanine Aminotransfer (ALT/SGP 40 U/L (12-78); Albumin, Blood 3.1 g/dL (3.4-5.0); Alk Phos 68 U/L (50-136); Anion Gap 6 mmol/L (6-16); Aspartate Aminotrans (AST/SGOT 16 U/L (12-37); Bilirubin, Total 0.3 mg/dL (0.1-1.0); Blood Urea Nitrogen 15 mg/dL (8-24); CO2, Blood 29 mmol/L (21-32); Chloride, Blood 104 mmol/L (98-108); Creatinine, Blood 0.58 mg/dL (0.40-1.00); Globulin, Blood 3.2 g/dL (2.2-4.0); Glomerular Filtration Rate >60 (60-); Glucose, Blood 165 mg/dL (70-99); Potassium, Blood 3.9 mmol/L (3.5-5.5); Sodium, Blood 139 mmol/L (136-145); Total Protein, Blood 6.3 g/dL (6.4-8.2)
== END 2021-09-05 05:11 | disposition home or self-care (01) ==
LOC: ER 01:21
PROVIDERS: Emergency Medicine
DX: F41.0 Panic disorder [episodic paroxysmal anxiety] (principal); G89.29 Other chronic pain; I10 Essential (primary) hypertension; I48.91 Unspecified atrial fibrillation; J43.9 Emphysema, unspecified; Z87.891 Personal history of nicotine dependence; Z88.6 Allergy status to analgesic agent; Z88.8 Allergy status to other drugs, medicaments and biological substances; Z79.899 Other long term (current) drug therapy; Z79.52 Long term (current) use of systemic steroids; Z86.73 Personal history of transient ischemic attack (TIA), and cerebral infarction without residual deficits
CPT/HCPCS: 71045; 80053; 84484; 85025; 93005; 93010; 99285-25; A9270

== ENCOUNTER 2021-09-08 14:16 | Emergency (ER) | payer MEDICARE ==
[~2021-09-08] VITALS: Ht 154.9 cm; Wt 45.4 kg
[2021-09-08] MEDS ORDERED: Roxicodone5 MG PO (14:26)
[2021-09-08] MEDS ORDERED: NARCAN4 M1 (15:58)
[2021-09-09] MEDS ORDERED: NALOXONE HCL4 MG (15:24)
[2021-09-09] MEDS ORDERED: CONSTULOSE10 GM/155 PO (15:24)
[2021-09-09] MEDS ORDERED: TRAM50 PO (15:24)
[2021-09-09] MEDS ORDERED: AZIT250 PO (15:24)
== END 2021-09-08 16:30 | disposition home or self-care (01) ==
LOC: ER 14:16
DX: T40.2X1A Poisoning by other opioids, accidental (unintentional), initial encounter (principal); I10 Essential (primary) hypertension; J43.9 Emphysema, unspecified; I48.91 Unspecified atrial fibrillation; Z99.81 Dependence on supplemental oxygen; Z86.73 Personal history of transient ischemic attack (TIA), and cerebral infarction without residual deficits; Z88.6 Allergy status to analgesic agent; Z88.8 Allergy status to other drugs, medicaments and biological substances; Z79.899 Other long term (current) drug therapy
CPT/HCPCS: 82947; 93005; 93010

== ENCOUNTER 2021-09-09 13:54 | Inpatient (IN) | payer MEDICARE ==
[~2021-09-09] VITALS: Ht 160 cm; Wt 50.7 kg
[~2021-09-09 13:54] MED LIST changes: +NARCAN4 M1
[2021-09-09 15:15] LABS: BASOPHILS ABSOLUTE AUTO 0.03 K/mm3 (0.00-0.23); BASOPHILS PERCENT AUTO 0 % (0-2); EOSINOPHILS PERCENT AUTO 0 % (0-6); Hematocrit 40.3 % (33.0-51.0); Hemoglobin 12.1 g/dL (11.5-16.0); IMMATURE GRAN ABSOLUTE AUTO 0.12 K/mm3 (0.00-0.10); IMMATURE GRAN PERCENT AUTO 1 % (0-1); LYMPHOCYTES ABSOLUTE AUTO 1.29 K/mm3 (0.84-5.20); LYMPHOCYTES PERCENT AUTO 6 % (21-46); MONOCYTES ABSOLUTE AUTO 2.01 K/mm3 (0.16-1.47); MONOCYTES PERCENT AUTO 9 % (4-13); Mean Corpuscular HGB 23.6 pg (26.0-34.0); Mean Corpuscular Volume 79 fL (80-100); Mean Platelet Volume 10.1 fL (9.1-12.4); NEUTROPHILS PERCENT AUTO 85 % (41-73); Platelet Count 333 K/mm3 (150-400); RDW Coefficient Variation 19.4 % (11.7-14.2); RDW Standard Deviation 54.3 fL (35.1-46.3); Red Blood Cell Count 5.13 M/mm3 (3.80-5.20); White Blood Cell Count 22.55 K/mm3 (4.00-11.30)
[2021-09-09] MEDS ORDERED: NALOXONE HCL4 MG (15:24)
[2021-09-09] MEDS ORDERED: AZIT250 PO (15:24)
[2021-09-09] MEDS ORDERED: TRAM50 PO (15:24)
[2021-09-09] MEDS ORDERED: CONSTULOSE10 GM/155 PO (15:24)
[2021-09-09 15:45] LABS: Albumin, Blood 3.4 g/dL (3.4-5.0); Bun/Creatinine Ratio 30.9 (12.0-20.0); Calcium, Blood 9.3 mg/dL (8.5-10.1); Creatinine, Blood 1.23 mg/dL (0.40-1.00); Globulin, Blood 3.3 g/dL (2.2-4.0); Potassium, Blood 4.4 mmol/L (3.5-5.5); Total Protein, Blood 6.7 g/dL (6.4-8.2)
[2021-09-09 16:02] LABS: Base Excess Venous 6.2 mmol/L; Bicarbonate Venous 28.3 mmol/L (24.0-30.0); PCO2 Venous 66.6 mmHg (38-42); PO2 Venous 90.2 mmHg (38-42)
[2021-09-09 18:46] LABS: Source, Urine Catheter
[2021-09-09 19:01] LABS: Appearance, Urine Hazy (Clear); Bilirubin, Urine Neg (Neg); Blood, Urine 5+ (Neg); Color, Urine Yellow (P-Yellow); Glucose Qualitative, Urine Neg (Neg); Ketones, Urine 2+ (Neg); Leukocyte Esterase, Urine Neg (Neg); Nitrite, Urine Neg (Neg); Protein, Urine 2+ (Neg); Urobilinogen, Urine 1+ (Normal)
[2021-09-09 19:23] LABS: Amorphous Light (0-Heavy); Bacteria Mod /hpf; Red Blood Cells, Urine Rare /hpf (0-2); Squamous Epithelial Cells Not Seen /hpf (Few)
[2021-09-09 21:21] LABS: Appearance, CSF Clear (Clear); Color, CSF No Color (No Color)
[2021-09-09 21:22] LABS: RBC Count, CSF 656 /mm3 (0-0); WBC Count, CSF 1 /mm3 (0-5)
[2021-09-09 21:25] LABS: Glucose, Body Fluid 104 mg/dL; Protein, Body Fluid 0.1 g/dL
[2021-09-09 22:21] LABS: U Amphetamine Screen Not Detected; U Barbituate Screen Not Detected; U Benzodiazapine Screen Not Detected; U Buprenorphine Screen Not Detected; U Cannabinoids Screen DETECTED; U Cocaine Screen Not Detected; U Methadone Screen Not Detected; U Methamphetamine Screen Not Detected; U Opiates Screen DETECTED; U Oxycodone Screen Not Detected; U Phencyclidine Screen Not Detected; U Propoxyphene Screen Not Detected
--- NOTE | 2021-09-09 22:33 | NUR ---
PATIENT CAME FROM ED VIA STRETCHER AT 2205, ALERT TO SELF AND PLACE ONLY, STATED HER AGE WAS 51 AND THE YEAR TODAY IS 1954, ABLE TO FOLLOW COMMANDS, ANXIOUS AND SLIGHT TEARFUL, BRUISES NOTED ALL OVER HER BODY, SKIN TEARS BANDAGED, PATIENT UNABLE TO TELL ME WHAT HAPPEN WHY SHE RECEIVED ALL THE BRUISES, ORDERS FOR ROBLES CATHETER INSERTION R/T RETENTION ORDERED WHILE PATIENT WAS IN ED, INSERTED A 14FR CATHETER USING STERILE TECHNIQUE DIDN'T OBTAIN SAMPLE PATIENT ALREADY HAD SAMPLE TAKEN VIA STRAIGHT CATH IN ED REFER TO LABS, LUNGS ARE COARSE THROUGHOUT AND DIMINISHED IN THE LOWER LOBES, NO COUGH NOTED WITH DEEP BREATHING, HEART RATE IS ST 111-115 VARIABLE, BLOOD PRESSURE IS INCREASE SBP > 180, WILL CALL MD, NOTED PATIENT IS IN PAIN WITH MOVEMENT. WITH CONFUSION AND ANXIETY WITH CARE MIGHT CONSIDER CHILDERS FOR PATIENT WILL ADDRESS WITH KENNEL SUPERVISOR.
[2021-09-09 22:53] LABS: Cryptococcus Neoformans/Gattii Not Detected (NOT DETECT); Enterovirus Not Detected (NOT DETECT); Escherichia Coli K1 Not Detected (NOT DETECT); Haemophilus Influenza Not Detected (NOT DETECT); Herpes Simplex Virus 1 Not Detected (NOT DETECT); Herpes Simplex Virus 2 Not Detected (NOT DETECT); Human Herpesvirus 6 Not Detected (NOT DETECT); Human Parechovirus Not Detected (NOT DETECT); Listeria Monocytogenes Not Detected (NOT DETECT); Neisseria Meningitidis Not Detected (NOT DETECT); Streptococcus Agalactiae Not Detected (NOT DETECT); Streptococcus Pneumoniae Not Detected (NOT DETECT); Varicella Zoster Virus Not Detected (NOT DETECT)
[2021-09-10 07:45] LABS: Hematocrit 38.6 % (33.0-51.0); Hemoglobin 11.3 g/dL (11.5-16.0); Mean Corpuscular HGB 23.5 pg (26.0-34.0); Mean Corpuscular HGB Conc 29.3 g/dL (31.5-36.5); Mean Corpuscular Volume 80 fL (80-100); Platelet Count 264 K/mm3 (150-400); RDW Coefficient Variation 19.4 % (11.7-14.2); RDW Standard Deviation 54.6 fL (35.1-46.3); White Blood Cell Count 13.62 K/mm3 (4.00-11.30)
[2021-09-10 08:17] LABS: Troponin I 0.101 ng/mL (0.000-0.040)
[2021-09-10 08:49] LABS: Alk Phos 94 U/L (50-136); Anion Gap 12 mmol/L (6-16); Aspartate Aminotrans (AST/SGOT 793 U/L (12-37); Bilirubin, Total 0.5 mg/dL (0.1-1.0); Blood Urea Nitrogen 28 mg/dL (8-24); CO2, Blood 26 mmol/L (21-32); Calcium, Blood 8.6 mg/dL (8.5-10.1); Chloride, Blood 108 mmol/L (98-108); Globulin, Blood 2.9 g/dL (2.2-4.0); Glomerular Filtration Rate >60 (60-); Glucose, Blood 165 mg/dL (70-99); Potassium, Blood 4.2 mmol/L (3.5-5.5); Sodium, Blood 146 mmol/L (136-145); Total Protein, Blood 5.9 g/dL (6.4-8.2)
[2021-09-10 09:04] LABS: Alanine Aminotransfer (ALT/SGP 1105 U/L (12-78)
--- NOTE | 2021-09-10 17:13 | NUR ---
SHIFT SUMMARY PT HAS BEEN RESTING IN BED, SITTING UP. PT HAS BEEN CONFUSED AND NOT ORIENTABLE. WHEN ASKED ORIENTATION QUESTIONS, PT STARED AHEAD BLANKLY AND WOULD NOT MAKE EYE CONTACT. PT DID NOT FOLLOW ANY COMMANDS NOR DID THEY SHOW ANY SIGN OF COMPREHENDING COMMANDS. WHEN ASKED TO TAKE A PO MED, PT DID NOT RESPOND, WHEN MED WAS PLACED IN PT'S MOUTH THEY SPIT OUT THE MED AND CONTINUED TO STARE BLANKLY WITH NO VERBAL RESPONSE. AUTO SEAT COVER INSTALLER ARRIVED TO TAKE THE PT TO IMAGING AND PT KEPT REPEATING "I'M NOT GOING ANYWHERE." HEART RATE INCREASED TO 140'S WITH SPIKES TO THE 160'S, ORDERS OBTAINED AND TREATED PER EMAR. SBP INCREASED TO 200, ORDERS OBTAINED AND TREATED PER EMAR. SpO2 HAS HELD >90% ON 2L NC.
--- NOTE | 2021-09-10 19:58 | NUR ---
PATIENT IS ALERT TO SELF, PLACE, UNAWARE OF MONTH AND YEAR, " BIDEN PRESIDENT" AWARE OF SITUATION, " PLEASE DONT HURT ME I HAVE COPD AND COVID", UNABLE TO KEEP ARMS UP FOR 10 SECONDS, ABLE TO FEEL SENSATIONS, NO NOTED FACIAL DROOP OR DECREASE IN SENSATION, GOOD BILATERAL REFLEX WITH STIMULATION ON FEET, UNABLE TO KEEP LEGS UP FOR 5 SECONDS, PUPILS ARE EQUAL AND REACTIVE AND TRACKING, BLOOD PRESSURE SBP > 180 NEW ORDERS RECEIVED REFER TO MAR, PATIENT STATES, " I SEE BUGS, NEED WATER SO I CAN , I DONT WANT TO DO THIS ANYMORE." HYDRALYZINE 10MG IVP GIVEN FOR BP 188/86 HR 98-100 , RR 24 O2 98% ON 1LNC LUNGS ARE COARSE AND RHONCHI, ABD SOFT NONTENDER BT X4.
--- NOTE | 2021-09-10 22:43 | NUR ---
PATIENT FOUND OUT OF BED WITH ROBLES CATHETER OUT, IV STILL IN PLACE, DISROBED AND DIGGING IN THE GARBAGE, PATIENT WAS PUT ON BILATERAL WRIST RESTRAINTS, WING JUSTIN MD GAVE ORDERS FOR RESTRAINT AND HALIDOL 5MG Q6 FOR AGITATION, PATIENT IS DRY HEAVING GAVE ZOFRAN, SBP> 180 GAVE LABETOLOL 10MG IVP PRN. WILL CONTINUE TO MONITOR.
--- NOTE | 2021-09-10 22:45 | NUR ---
PATIENT ALSO HAD ROBLES CATHETER 14FR REINSERTED USING STERILE TECHNIQUE.
[2021-09-11 03:49] LABS: Hemoglobin 10.9 g/dL (11.5-16.0); Mean Corpuscular HGB 23.7 pg (26.0-34.0); Mean Corpuscular HGB Conc 30.3 g/dL (31.5-36.5); Mean Corpuscular Volume 78 fL (80-100); Mean Platelet Volume 10.4 fL (9.1-12.4); NRBC ABSOLUTE 0.02 K/mm3 (0.00-0.02); NRBC Auto 0.1 /100 WBC (0.0-0.2); Platelet Count 238 K/mm3 (150-400); RDW Coefficient Variation 19.9 % (11.7-14.2); RDW Standard Deviation 52.9 fL (35.1-46.3); White Blood Cell Count 16.52 K/mm3 (4.00-11.30)
[2021-09-11 04:11] LABS: Anion Gap 9 mmol/L (6-16); Blood Urea Nitrogen 33 mg/dL (8-24); Bun/Creatinine Ratio 47.7 (12.0-20.0); CO2, Blood 29 mmol/L (21-32); Calcium, Blood 8.7 mg/dL (8.5-10.1); Chloride, Blood 107 mmol/L (98-108); Creatinine, Blood 0.69 mg/dL (0.40-1.00); Glomerular Filtration Rate >60 (60-); Glucose, Blood 156 mg/dL (70-99); Potassium, Blood 3.9 mmol/L (3.5-5.5); Sodium, Blood 145 mmol/L (136-145)
[2021-09-11 08:54] LABS: Alanine Aminotransfer (ALT/SGP 801 U/L (12-78); Albumin, Blood 2.9 g/dL (3.4-5.0); Albumin/Globulin Ratio 0.9 (0.8-1.8); Alk Phos 82 U/L (50-136); Anion Gap 9 mmol/L (6-16); Aspartate Aminotrans (AST/SGOT 325 U/L (12-37); Bilirubin, Total 0.9 mg/dL (0.1-1.0); Blood Urea Nitrogen 33 mg/dL (8-24); Bun/Creatinine Ratio 44.4 (12.0-20.0); CO2, Blood 28 mmol/L (21-32); Calcium, Blood 8.6 mg/dL (8.5-10.1); Chloride, Blood 108 mmol/L (98-108); Creatinine, Blood 0.74 mg/dL (0.40-1.00); Globulin, Blood 3.1 g/dL (2.2-4.0); Glomerular Filtration Rate >60 (60-); Glucose, Blood 157 mg/dL (70-99); Potassium, Blood 3.9 mmol/L (3.5-5.5); Sodium, Blood 145 mmol/L (136-145)
--- NOTE | 2021-09-11 17:27 | NUR ---
SHIFT SUMMARY PT HAS BEEN RESTLESS, CONSTANTLY PULLING AT RESTRAINTS. UPON ENTERING THE ROOM, PT WILL STATE "YOU'RE HURTING ME" BEFORE ANY CARE TASKS HAVE BEGUN. PT HAS BEEN RUBBING THEIR FEET ACROSS THEIR OPPOSITE LEG STATING "SOMETHING IS CRAWLING ON ME." PT HAS PLEADED AND BARGAINED TO "TAKE THESE LINES OFF" REFERENCING IV, NIBP, AND SPO2. HYPERTENSION HAS PERSISTED 125-191 SBP, TREATED PER EMAR. HEART RATE HAS HELD STEADY IN THE 100'S. PT STATED DIFFICULTY, SPO2 READ 95% ON 2L NC AND RESPIRATORY RATE WAS CONSISTENT AT 20-22.
[2021-09-12 03:03] LABS: Stool Occult Blood Guaiac 1 Pos (Neg)
[2021-09-12 04:08] LABS: Hematocrit 34.6 % (33.0-51.0); Hemoglobin 10.2 g/dL (11.5-16.0); Mean Corpuscular HGB 23.4 pg (26.0-34.0); Mean Corpuscular HGB Conc 29.5 g/dL (31.5-36.5); Mean Corpuscular Volume 79 fL (80-100); Mean Platelet Volume 9.9 fL (9.1-12.4); NRBC ABSOLUTE 0.02 K/mm3 (0.00-0.02); NRBC Auto 0.1 /100 WBC (0.0-0.2); Platelet Count 195 K/mm3 (150-400); RDW Coefficient Variation 19.9 % (11.7-14.2); RDW Standard Deviation 54.5 fL (35.1-46.3); Red Blood Cell Count 4.36 M/mm3 (3.80-5.20); White Blood Cell Count 15.35 K/mm3 (4.00-11.30)
[2021-09-12 04:24] LABS: International Normalized Ratio 1.23; Prothrombin Time Results 12.7 Sec (9.7-11.5)
[2021-09-12 04:33] LABS: Alanine Aminotransfer (ALT/SGP 538 U/L (12-78); Albumin, Blood 2.9 g/dL (3.4-5.0); Albumin/Globulin Ratio 1.1 (0.8-1.8); Alk Phos 75 U/L (50-136); Anion Gap 5 mmol/L (6-16); Aspartate Aminotrans (AST/SGOT 151 U/L (12-37); Bilirubin, Total 1.2 mg/dL (0.1-1.0); Blood Urea Nitrogen 31 mg/dL (8-24); Bun/Creatinine Ratio 48.7 (12.0-20.0); CO2, Blood 32 mmol/L (21-32); Calcium, Blood 8.8 mg/dL (8.5-10.1); Chloride, Blood 112 mmol/L (98-108); Creatinine, Blood 0.64 mg/dL (0.40-1.00); Globulin, Blood 2.7 g/dL (2.2-4.0); Glomerular Filtration Rate >60 (60-); Glucose, Blood 135 mg/dL (70-99); Potassium, Blood 3.3 mmol/L (3.5-5.5); Sodium, Blood 149 mmol/L (136-145); Total Protein, Blood 5.6 g/dL (6.4-8.2)
--- NOTE | 2021-09-12 07:14 | NUR ---
SHIFT SUMMARY PT AGITATED T/O SHIFT. DOES NOT ANSWER MOST QUESTIONS. BREATHING IS TACHYPNEIC LS COARSE T/O. MAINTAINS SATS ABOVE 94-95% ON 2 L VIA NC. TAKES SMALL SIPS OF WATER WITH MEDS. IN BILATERAL WRIST RESTRAINTS AND WING D/T UNABLE TO CONTRACT FOR SAFETY AND FAILURE TO FOLLOW COMMANDS AND COOPERATE WITH STAFF. PT HAD LARGE DARK BM, SAMPLE COLLECTED AND SENT. OCCULT +, NOTIIFED HOSPITALIST AND COAGS ORDERED. PT'S SKIN CONTINUES TO BE FRAIL, ECCHYMOTIC, AND EASILY SHORN. DIFFICULT TO MAINTAIN INTEGRITY W/DRESSINGS D/T PT CONSTANTLY MOVING IN BED. THIS RN AND JEREMIAS MARRUFO TURNED PT T/O SHIFT, THIS RN PROVIDES PT W/SMALL SIPS OF WATER AND MOIST SWABS FOR ORAL CARE. PT HAD EPISODE ON TELE OF CYNTHIA RHYTHM, HR DOWN TO 50'S FROM 100'S OVER 30 MINS. BACK UP TO 90'S.
--- NOTE | 2021-09-12 09:08 | NUR ---
CARE ASSUMPTION PATIENT IS A/OX2/3. PATIENT IS MOVING FEET UP AND DOWN AND THIS RN WAS GIVING A BREAK FROM THE RESTRAINTS THE PATIENT STARTED TO PULL AT LINES AND TRY TO GET OUT OF BED. THIS RN ORIENTATED THE PATIENT TO THE SITUATION AT HAND AND ASKED THE PATIENT TO STAY IN THE BED. PATIENT FOLLOWED SOME DIRECTIONS, BUT NOT ALL DIRECTIONS. VSS. TELE SINUS TACH 102. CALL LIGTH WITHIN REACH AND BED IN LOWEST POSITION. PATIENT REPORTS NO CHEST PAIN, PAIN, SHORTNESS OF BREATH, HEADACHE OR NUMBNESS OR TINGLIG. WILL CONTINUE TO MONITOR AND PROVIDE CARE.
--- NOTE | 2021-09-12 17:06 | NUR ---
SHIFT SUMMARY NO ACUTE CHANGES THIS SHIFT. PATIENT HAS BILATERAL WRIST RESTRAINTS REMOVED AT 1630, PER PATIENT REQUEST AND PATIENT STATING SHE WILL NOT PULL AT LINES. THIS RN WILL DC THE ORDER. VSS. WING VEST STILL IN PLACE SO PATIENT DOESN'T IMPULSIVLY GET OUT OF BED FOR SAFETY. ROBLES CATH IN PLACE DRAINING WITH GRAVITY. CALL LIGHT WITHIN REACH AND BED IN LOWEST POSITION. WILL CONTINUE TO MONITOR AND PROVIDE CARE UNTIL HAND OFF WITH NEXT SHIFT.
[2021-09-13 05:18] LABS: BASOPHILS ABSOLUTE AUTO 0.02 K/mm3 (0.00-0.23); BASOPHILS PERCENT AUTO 0 % (0-2); EOSINOPHILS ABSOLUTE AUTO 0.01 K/mm3 (0.00-0.68); EOSINOPHILS PERCENT AUTO 0 % (0-6); Hemoglobin 10.4 g/dL (11.5-16.0); IMMATURE GRAN ABSOLUTE AUTO 0.14 K/mm3 (0.00-0.10); IMMATURE GRAN PERCENT AUTO 1 % (0-1); LYMPHOCYTES ABSOLUTE AUTO 1.17 K/mm3 (0.84-5.20); LYMPHOCYTES PERCENT AUTO 9 % (21-46); MONOCYTES ABSOLUTE AUTO 1.04 K/mm3 (0.16-1.47); MONOCYTES PERCENT AUTO 8 % (4-13); Mean Corpuscular HGB 23.9 pg (26.0-34.0); Mean Corpuscular HGB Conc 30.6 g/dL (31.5-36.5); Mean Corpuscular Volume 78 fL (80-100); Mean Platelet Volume 10.2 fL (9.1-12.4); NEUTROPHILS ABSOLUTE AUTO 11.06 K/mm3 (1.96-9.15); NEUTROPHILS PERCENT AUTO 82 % (41-73); NRBC ABSOLUTE 0.02 K/mm3 (0.00-0.02); NRBC Auto 0.1 /100 WBC (0.0-0.2); Platelet Count 143 K/mm3 (150-400); RDW Coefficient Variation 19.9 % (11.7-14.2); RDW Standard Deviation 53.9 fL (35.1-46.3); Red Blood Cell Count 4.36 M/mm3 (3.80-5.20); White Blood Cell Count 13.44 K/mm3 (4.00-11.30)
--- NOTE | 2021-09-13 05:26 | NUR ---
SHIFT SUMMARY NO ACUTE CHANGES. VSS. PT REMAINS ALERT BUT NOT ORIENTED BEYOND SELF AND SOME DIRECTIONS. PT IN SR. SOME HTN NOTED. ON 2LNC WITH STABLE SPO2 >94%. ROBLES INTACT. PT HAS REMAINED IN WING VEST T/O SHIFT. WAS IMPULSIVE AT BEGINNING OF SHIFT BUT HAS BEEN A BIT SOMNOLENT AND MUCH MORE COOPERATIVE. MULTIPLE LOOSE BM'S THIS SHIFT. POWERGLIDE INTACT. BED ALARM ON., PT REMAINS IN ISOLATION.
[2021-09-13 05:40] LABS: Alanine Aminotransfer (ALT/SGP 357 U/L (12-78); Albumin, Blood 2.6 g/dL (3.4-5.0); Alk Phos 76 U/L (50-136); Anion Gap 5 mmol/L (6-16); Aspartate Aminotrans (AST/SGOT 76 U/L (12-37); Bilirubin, Total 0.9 mg/dL (0.1-1.0); Blood Urea Nitrogen 21 mg/dL (8-24); Bun/Creatinine Ratio 38.2 (12.0-20.0); CO2, Blood 34 mmol/L (21-32); Calcium, Blood 8.3 mg/dL (8.5-10.1); Chloride, Blood 104 mmol/L (98-108); Creatinine, Blood 0.55 mg/dL (0.40-1.00); Globulin, Blood 2.7 g/dL (2.2-4.0); Glomerular Filtration Rate >60 (60-); Glucose, Blood 167 mg/dL (70-99); Potassium, Blood 2.6 mmol/L (3.5-5.5); Sodium, Blood 143 mmol/L (136-145); Total Protein, Blood 5.3 g/dL (6.4-8.2)
--- NOTE | 2021-09-13 13:39 | NUR ---
FOUND AN ADVANCED DIRECTIVE IN CHART, NOTIFIED MD. MD ADDED PALLIATIVE CONSULT. PT HAS NOT BEEN EATING MUCH THE PAST SEVERAL DAYS. ON ADVANCED DIRECTIVE IT STATES HER WISHES NO TUBE FEEDINGS OR LIFE SUPPORT. IS HER POA ON THE ADVANCED DIRECTIVE.
--- NOTE | 2021-09-13 18:20 | NUR ---
Pt has been alert most of the day. Hard to assess orientation because pt will not answer orientation questions. Did communicate some today. Pt expressed she wanted me to call her so she could discuss her will with him. Palliative care order was added today by . Pt has advanced directive in chart which indicates Warren is her POA and she does not wish for life support or tube feedings. SHe hasn't been eating much today, but did eat some yogurt. She was refusing to eat with staff in room, but did do well eating a yogurt on her own that we left for her. She did well swallowing pills with applesauce. D5 finished today for a total of 2L. IV abx given per orders as well as potassium replacement IV. Pt refused lactulose. Meza is patent and did not produce too much urine today, pretty dark colored urine. Powerglide in left upper arm is drawing blood well. Pt is in chelsea restraints due to pulling at lines and elopement risk for safety. visited briefly today and was updated via telephone this evening. CBGs low 100s, no sliding scale needed.
[2021-09-14 04:45] LABS: BASOPHILS ABSOLUTE AUTO 0.02 K/mm3 (0.00-0.23); BASOPHILS PERCENT AUTO 0 % (0-2); EOSINOPHILS ABSOLUTE AUTO 0.05 K/mm3 (0.00-0.68); EOSINOPHILS PERCENT AUTO 0 % (0-6); Hematocrit 35.1 % (33.0-51.0); Hemoglobin 10.6 g/dL (11.5-16.0); IMMATURE GRAN ABSOLUTE AUTO 0.12 K/mm3 (0.00-0.10); IMMATURE GRAN PERCENT AUTO 1 % (0-1); LYMPHOCYTES ABSOLUTE AUTO 1.63 K/mm3 (0.84-5.20); LYMPHOCYTES PERCENT AUTO 14 % (21-46); MONOCYTES PERCENT AUTO 9 % (4-13); Mean Corpuscular HGB 23.5 pg (26.0-34.0); Mean Corpuscular HGB Conc 30.2 g/dL (31.5-36.5); Mean Corpuscular Volume 78 fL (80-100); NEUTROPHILS ABSOLUTE AUTO 8.71 K/mm3 (1.96-9.15); NEUTROPHILS PERCENT AUTO 76 % (41-73); NRBC ABSOLUTE 0.02 K/mm3 (0.00-0.02); NRBC Auto 0.2 /100 WBC (0.0-0.2); Platelet Count 103 K/mm3 (150-400); RDW Coefficient Variation 20.3 % (11.7-14.2); RDW Standard Deviation 54.1 fL (35.1-46.3); Red Blood Cell Count 4.52 M/mm3 (3.80-5.20); White Blood Cell Count 11.53 K/mm3 (4.00-11.30)
[2021-09-14 04:46] LABS: Mean Platelet Volume 10.4 fL (9.1-12.4)
[2021-09-14 05:10] LABS: Alanine Aminotransfer (ALT/SGP 264 U/L (12-78); Albumin, Blood 2.5 g/dL (3.4-5.0); Albumin/Globulin Ratio 0.9 (0.8-1.8); Alk Phos 89 U/L (50-136); Anion Gap 5 mmol/L (6-16); Aspartate Aminotrans (AST/SGOT 68 U/L (12-37); Bilirubin, Total 0.9 mg/dL (0.1-1.0); Blood Urea Nitrogen 16 mg/dL (8-24); Bun/Creatinine Ratio 26.5 (12.0-20.0); CO2, Blood 36 mmol/L (21-32); Calcium, Blood 8.5 mg/dL (8.5-10.1); Chloride, Blood 101 mmol/L (98-108); Globulin, Blood 2.8 g/dL (2.2-4.0); Glomerular Filtration Rate >60 (60-); Glucose, Blood 128 mg/dL (70-99); Potassium, Blood 3.1 mmol/L (3.5-5.5); Sodium, Blood 142 mmol/L (136-145); Total Protein, Blood 5.3 g/dL (6.4-8.2)
--- NOTE | 2021-09-14 05:42 | NUR ---
SHIFT SUMMARY PT ORIENTED TO SELF. AGITATED AT BEGINNING OF SHIFT, FOLLOWING DIRECTIONS BY END OF SHIFT. PT CAN BE WITHDRAWN. PT STATES, "I AM SICK. i AM NOT GETTING BETTER." WHEN ASKED IF SHE WANTS TO GET BETTER, PT REPLIES, "NO". SP02>92% ON 2L NC. TELEMETRY READS NSR, HR 70'S. HTN NOTED, HYDRALAZINE GIVEN X1 THIS SHIFT PER EMAR. PT C/O OF ABD PAIN, R SIDE. CALL PLACED TO MD SANDRA WITH ORDERS FOR TYLENOL. PT HAS ALLERGIES, TYLENOL NOT GIVEN. ABX INFUSED THIS SHIFT. PT HAD MULTIPLE BM, C/D ATTENDS IN PLACE, LINENS CHANGED. PT WOUNDS CLEANED AND REDRESSED, PICS IN CHART. ROBLES CATHETER DRAINING TO GRAVITY. CALL LIGHT IN REACH.
--- NOTE | 2021-09-14 10:15 | NUR ---
Pt reported to staff, "I swallowed a magnet yesterday". MD notified and abdominal xray done, waiting for results. Pt is reporting abdominal pain, MD notified of this as well. Pt has a lot of allergies to pain meds, like tylenol and nsaids. I asked pt what she takes at home for pain and she reported liquid morphine. MD notified. MD will round on pt and discuss.
--- NOTE | 2021-09-14 14:35 | NUR ---
Pt resting comfortably in bed after tramadol, is at bedside.
--- NOTE | 2021-09-14 16:35 | NUR ---
BP 181/94 WITH HR 84, SCHEDULED METOPROLOL GIVEN.
--- NOTE | 2021-09-14 17:06 | NUR ---
Pt is alert to self, but won't answer other orientation questions. Pt is talking a lot more today, speaking full sentences. VSS on 2L, which is her baseline. BP elevated in evening, scheduled meds given. Abdominal xray completed due to pt stating "I swallowed a magnet". Foreign body was identifed on xray, but was nonobstructing. We believe maybe it was a telemetry patch from what the pt reports. Abdominal pain, prn tramadol given with good effect. COVID iso precautions maintained. IV abx given per orders. A couple BMs today incontinent. Grafton vest remained in place. Meza in place, draining well with dark urine. CBGs low 100s, no sliding scale needed. Skin has bruises and skin tears all over, dressing remained in place. did come to visit today. Powerglide in place in left upper arm. Tele: SR/St 80-90s.
[2021-09-15 04:55] LABS: Alanine Aminotransfer (ALT/SGP 210 U/L (12-78); Albumin, Blood 2.4 g/dL (3.4-5.0); Albumin/Globulin Ratio 0.8 (0.8-1.8); Alk Phos 100 U/L (50-136); Anion Gap 5 mmol/L (6-16); Aspartate Aminotrans (AST/SGOT 71 U/L (12-37); Bilirubin, Total 0.6 mg/dL (0.1-1.0); Blood Urea Nitrogen 16 mg/dL (8-24); Bun/Creatinine Ratio 29.6 (12.0-20.0); CO2, Blood 35 mmol/L (21-32); Calcium, Blood 8.6 mg/dL (8.5-10.1); Chloride, Blood 104 mmol/L (98-108); Creatinine, Blood 0.54 mg/dL (0.40-1.00); Globulin, Blood 2.9 g/dL (2.2-4.0); Glomerular Filtration Rate >60 (60-); Glucose, Blood 104 mg/dL (70-99); Potassium, Blood 3.3 mmol/L (3.5-5.5); Sodium, Blood 144 mmol/L (136-145); Total Protein, Blood 5.3 g/dL (6.4-8.2)
--- NOTE | 2021-09-15 05:43 | NUR ---
SHIFT SUMMARY PT A&OX1, FOLLOWS DIRECTIONS, ABLE TO MAKE NEEDS KNOWN WHEN IN ROOM, BUT DOESNT USE CALL LIGHT. SP02>92% ON 2L NC. TELEMETRY SHOWS NSR, HR 80'S. PT BP ELEVATED THIS SHIFT. PRN HYDRALAZINE GIVEN X1 PER EMAR. PT C/O OF ABD PAIN, TRAMODAL GIVEN PER EMAR X1. PT HAS ROBLES CATHETER DRAINING YELLOW URINE TO GRAVITY. PT HAD INCONTINENT SMALL SMEAR BM X3 THIS SHIFT. C/D ATTENDS IN PLACE. PT REFUSED REPOSITIONING PART OF THE TIME. CALL LIGHT IN REACH.
--- NOTE | 2021-09-15 18:03 | NUR ---
Spoke with pt's Warren who requests pt's sister Nimisha be the decision maker, as he states she is "better at this sort of thing".
--- NOTE | 2021-09-15 18:14 | NUR ---
TRANSFER NOTE PT MEDICAL W/ TELE STATUS. A&O X3. MONITOR SHOWS SR-ST, HR 70's-110. SPO2 > 92% ON 2L NC WHICH IS PT's REPORTED HOME O2 USE. BP ELEVATED THIS EVENING, MEDICATED W/ SCHEDULED METOPROLOL W/ OUT IMPROVEMENT, THEN MEDICATED W/ PRN IV HYDRALAZINE X1 PER EMAR. PT C/O R QUAD ABD PAIN, MEDICATED W/ PRN TRAMADOL X1 THIS SHIFT. PT INCONTINENT OF STOOL, HAVING 1 GREEN/BROWN LOOSE STOOL THIS SHIFT. ROBLES CATH PATENT & DRAINING DARK YELLOW URINE. PT W/ VARIOUS SKIN TEARS SCATTERED T/O. BUTTOCKS/COCCYX RED. PT REFUSING REPOSITIONING, REQUIRING ENCOURAGEMENT & REMINDING TO ALLOW Q2H REPOSITIONING. WING VEST REMAINS IN PLACE FOR IMPULSIVENESS/FALL RISK. REPORT GIVEN TO ACCEPTING MEDICAL FLOOR RN. PT TAKEN TO RM 344 BY BED W/ BELONGINGS @ APPROX 1810.
--- NOTE | 2021-09-15 18:22 | NUR ---
Case Conference: Spoke to pt, her and her sister. Pt's code status per her chart is DNR. Dr. Frankel and bedside RN notified.
[2021-09-16 05:17] LABS: Hemoglobin 10.7 g/dL (11.5-16.0); Mean Corpuscular HGB 23.8 pg (26.0-34.0); Mean Corpuscular HGB Conc 30.6 g/dL (31.5-36.5); Mean Corpuscular Volume 78 fL (80-100); Platelet Count 133 K/mm3 (150-400); White Blood Cell Count 12.74 K/mm3 (4.00-11.30)
[2021-09-16 05:48] LABS: Alanine Aminotransfer (ALT/SGP 183 U/L (12-78); Albumin, Blood 2.7 g/dL (3.4-5.0); Alk Phos 121 U/L (50-136); Anion Gap 8 mmol/L (6-16); Aspartate Aminotrans (AST/SGOT 68 U/L (12-37); Bilirubin, Total 0.6 mg/dL (0.1-1.0); Blood Urea Nitrogen 13 mg/dL (8-24); Bun/Creatinine Ratio 23.4 (12.0-20.0); CO2, Blood 31 mmol/L (21-32); Calcium, Blood 8.4 mg/dL (8.5-10.1); Chloride, Blood 103 mmol/L (98-108); Creatinine, Blood 0.56 mg/dL (0.40-1.00); Globulin, Blood 2.6 g/dL (2.2-4.0); Glomerular Filtration Rate >60 (60-); Glucose, Blood 103 mg/dL (70-99); Potassium, Blood 3.6 mmol/L (3.5-5.5); Sodium, Blood 142 mmol/L (136-145); Total Protein, Blood 5.3 g/dL (6.4-8.2)
--- NOTE | 2021-09-16 18:11 | NUR ---
PT A/O X 3, PLEASANT AND COOPERATIVE, SHE DECLINED TO WORK WITH THERAPIES TODAY, DID TELL THIS RN SHE WOULD START WORKING "HARDER" TOMORROW. ON 09/14 PT REPORTED TO STAFF THAT SHE HAD SWALLOWED A "MAGNET", TODAY SHE PASSED A TELE PATCH WITH HER STOOL. RESTRAINTS WERE DISCONTINUED THIS AM AT 0800, PT DECLINED TO REMOVE VEST, NOT TIED, NO MOVEMENT RESTRICTIION. NO ACUTE CHANGES NOTED, WILL CONTINUE TO MONITOR AND REPORT TO ONCOMING RN.
--- NOTE | 2021-09-16 21:46 | NUR ---
re check of bp 99/44. Asymptomatic. Affect cheerful. Otherwise VSS. RN notified. Will monitor
[2021-09-17 05:21] LABS: Hematocrit 33.9 % (33.0-51.0); Hemoglobin 10.4 g/dL (11.5-16.0); Mean Corpuscular HGB 24.3 pg (26.0-34.0); Mean Corpuscular HGB Conc 30.7 g/dL (31.5-36.5); Mean Corpuscular Volume 79 fL (80-100); Mean Platelet Volume 10.7 fL (9.1-12.4); Platelet Count 174 K/mm3 (150-400); RDW Coefficient Variation 22.5 % (11.7-14.2); Red Blood Cell Count 4.28 M/mm3 (3.80-5.20)
[2021-09-17 05:58] LABS: Alanine Aminotransfer (ALT/SGP 142 U/L (12-78); Albumin, Blood 2.5 g/dL (3.4-5.0); Alk Phos 128 U/L (50-136); Anion Gap 5 mmol/L (6-16); Aspartate Aminotrans (AST/SGOT 53 U/L (12-37); Bilirubin, Total 0.4 mg/dL (0.1-1.0); Blood Urea Nitrogen 13 mg/dL (8-24); Bun/Creatinine Ratio 19.3 (12.0-20.0); CO2, Blood 34 mmol/L (21-32); Calcium, Blood 8.3 mg/dL (8.5-10.1); Chloride, Blood 102 mmol/L (98-108); Creatinine, Blood 0.67 mg/dL (0.40-1.00); Globulin, Blood 2.6 g/dL (2.2-4.0); Glomerular Filtration Rate >60 (60-); Glucose, Blood 133 mg/dL (70-99); Potassium, Blood 3.8 mmol/L (3.5-5.5); Sodium, Blood 141 mmol/L (136-145); Total Protein, Blood 5.1 g/dL (6.4-8.2)
--- NOTE | 2021-09-17 17:11 | NUR ---
SUMMARY PT SITTING UP IN BED WATCHING TV AND TALKING ON THE PHONE, PT HAS BEEN PLEASANT AND COOPERATIVE WITH CARE T/O THE DAY, FORGETFUL AT TIMES, PT IS UP WITH 1P ASSIST TO THE BEDSIDE COMMODE, TAKES HER PILLS WHOLE, HAS WORKED WITH THERAPY TODAY, SPOUSE HAS BEEN IN TO VISIT, PT OFF AND ON 2L NC T/O THE DAY, VSS, NO COMPLAINTS, WILL CONTINUE TO MONITOR
--- NOTE | 2021-09-18 04:17 | NUR ---
SHIFT SUMMARY A&OX4, CALM AND COOPERATIVE, NO SIGINIFACT EVENTS OVER NIGHT. REMAINS ON 2L O2 (BASELINE), FRAGILE SKIN, SCATTERED TEARS, ARM TEARS COVERED AND WRAPPED. PAIN TREATED PER EMAR. ROBLES IN PLACE CLEAR YELLOW URINE.
--- NOTE | 2021-09-18 17:22 | NUR ---
SUMMARY PT SITTING UP IN BED WATCHING TV, PT HAS BEEN PLEASANT AND COOPERATIVE WITH CARE, UP TO THE COMMODE WITH 1P ASSIST, PT ABLE TO TAKE PILLS WHOLE WITH WATER, PT'S ROBLES CATHETER DC'D, PT MARIS WELL, PT MED PER EMAR FOR C/O PAIN AND NAUSEA, VSS, WILL CONT TO MONITOR
--- NOTE | 2021-09-19 | NUR ---
1ST UNIT PRBC'S COMPLETED AT 2357 AND PT TOLERATED IT W/O S/S ADVERSE REACTION. LS REMAIN SLIGHTLY COARSE TO BASES BUT THIS WAS HEARD UPON T/F AND ADMIT TO ROOM 348. NO S/S RESP DISTESS OBSERVED AND SPO2 IS WNL ON RA. VSS/AFEBRILE.
--- NOTE | 2021-09-19 00:14 | NUR ---
2ND UNIT PRBC'S VERIFIED W/2ND RN (RADHA MARIA) AND PT & AWARE OF S/S SYMPTOMS ADVERSE REACTION. LS SLIGHTLY COARSE TO BILAT BASES BUT PT WAS ABLE TO COUGH AND CLEAR SECRETIONS FOR SOME IMPROVEMENT. VSS/AFEBRILE AND PRBC'S COMMENCED AT 0005. THEY'RE AWARE TO ALERT STAFF OF ANY CHANGES OR IF HE BECOMES SYMPTOMATIC OF DISTRESS.
--- NOTE | 2021-09-19 01:05 | NUR ---
TRAMADOL AND ZOFRAN RECIEVED FOR C/O NECK PAIN AND NAGGING NAUSEA, WILL MONITOR FOR AFFECT.
--- NOTE | 2021-09-19 03:36 | NUR ---
SUMMARY: PT A/OX3-4, CALLS APPROPRIATELY TO SPECIFY NEEDS AND IS PLEASANT AND COOPERATIVE W/CARE. SHE'S UP TO BSC W/SBA AND WAS ABLE TO VOID TONIGHT POST ROBLES REMOVAL ON DAY SHIFT. PT HAD X1 URGE INCONTINENCE W/PULL UP CHANGED PRN. SHE HAD PRN ZOFRAN FOR NAGGING NAUSEA AND TRAMADOL FOR RELIEF OF NECK PAIN. PT REMAINS ON RA OR 2L O2 VIA NC (HOME DOSE) AD RUPALI W/SPO2 WNL AND NO S/S RESP DISTRESS. SKIN IS FRAGILE W/BRUISES AND MULTI SKIN TEARS, CLEAR OCCLUSIVE DX'S ARE C/D/I. NO ACUTE CHANGES, VSS/AFEBRILE. WCTM AND REPORT TO DAY RN.
--- NOTE | 2021-09-19 17:22 | NUR ---
SHIFT SUMMARY PT HAS DONE WELL TODAY. INCREASING PHYSICAL ACTIVITIES, STRENGTH, & CONFIDENCE. O2 SATS MAINTAINED w/ BASELINE O2. NERVOUS BUT AGREEABLE TO GO [place] w/ HH TOMORROW.
--- NOTE | 2021-09-19 20:05 | NUR ---
PT IS A&O X3. PT IS CURRENTLY ON RA, HAS O2 2L NC AVAILABLE AT BEDSIDE - PT REPORTS SHE ONLY "WEARS OXYGEN WHEN SHE NEEDS IT." PT LEFT UPPER LOBE DIM, OTHERWISE PT HAS INSPIRATORY WHEEZES THROUGHOUT, WITH CRACKLES TO BILATERAL BASES. PT DENIES SOB. RESPIRATIONS EVEN AND UNLABORED. PT REPORTS PHLEGM YELLOW IN COLOR, AND REPORTS IT ISN'T "THICK IT HAD BEEN." THIS RN DIDN'T VISUALIZE SPUTUM. PT DENIES HEADACHE, CHEST PAIN, OR NAUSEA. ALINA PG SITE IS WNL - FLUSHED WITH NS. PT REPORTS SHE WAS TO GO HOME TODAY, BUT REPORTS SHE IS ANTICIPATING DC TOMORROW. PT CONTINUES IN ISOLATION FOR COVID. CALL LIGHT WITHIN REACH. BED IN LOW POSITION. FLUIDS AT BEDSIDE.
--- NOTE | 2021-09-20 04:14 | NUR ---
SHIFT SUMMARY - NO ACUTE CHANGES THROUGHOUT THIS SHIFT. PT MEDICATED X2 WITH ZOFRAN FOR NAUSEA, WITH GOOD RELIEF. PT MEDICATED X1 WITH TRAMADOL FOR RIGHT SIDED ABDOMINAL PAIN. PT IS ANTICIPATING DISCHARGE HOME WITH HOME HEALTH SERVICES - REVIEWED WITH PT ABOUT HOME HEALTH SERVICE. PT REPORTS SHE CURRENTLY RECEIVES MEALS ON WHEELS. PT SLEPT FOR APPX 5-6 HOURS TONIGHT. PO FLUIDS AT BEDSIDE. BED IN LOW POSITION. CALL LIGHT WITHIN REACH. WILL CONTINUE TO MONITOR UNTIL AM SHIFT.
[2021-09-20] MEDS ORDERED: LOSA50 PO (11:27)
[2021-09-20] MEDS ORDERED: METO50 PO (11:28)
[2021-09-20] MEDS ORDERED: QUET25 PO (11:28)
--- NOTE | 2021-09-20 13:18 | NUR ---
PATIENT DISCHARGED TO HOME WITH SPOUSE. HOME HEALTH TO FOLLOW. VERBALIZED UNDERSTANDING OF D/C INSTRUCTIONS. IV POWER GLIDE REMOVED WITHOUT INCIDENT. HARD COPY RX FOR TRAMADOL GIVEN TO PATIENT. OFF UNIT AT 1315 VIA W/C. NO BELONGINGS LEFT BEHIND IN ROOM.
--- NOTE | 2021-09-20 15:53 | NUR ---
Pt. is doing much better and is discharged to go home fo better offered prayers for pt.
== END 2021-09-20 13:14 | disposition home health service (06) | DRG 871 ==
LOC: ER 13:54 → ERHOLD 19:54 → PCU 19:54 → MEDS 09-15 18:13
PROVIDERS: Emergency Medicine; Internal Medicine; Physician Assistant; ADMIT Internal Medicine
PROC: 8E0ZXY6 Isolation (ICD-10-PCS; principal; 2021-09-09)
PROC: 3E03329 Introduction of Other Anti-infective into Peripheral Vein, Percutaneous Approach (ICD-10-PCS; 2021-09-12)
DX: A41.89 Other specified sepsis (principal); U07.1 COVID-19; G92.8 Other toxic encephalopathy; N17.9 Acute kidney failure, unspecified; E87.0 Hyperosmolality and hypernatremia; I48.0 Paroxysmal atrial fibrillation; Z66 Do not resuscitate; R65.20 Severe sepsis without septic shock; I10 Essential (primary) hypertension; Z98.51 Tubal ligation status; Z90.49 Acquired absence of other specified parts of digestive tract; Z98.890 Other specified postprocedural states; Z99.81 Dependence on supplemental oxygen; Z88.8 Allergy status to other drugs, medicaments and biological substances; Z79.899 Other long term (current) drug therapy
CPT/HCPCS: 36415; 51701; 62270; 71045; 74018; 74177; 80048; 80053; 81001; 82140; 82270; 82803; 82945; 82947; 83605; 83690; 83735; 83880; 84132; 84145; 84157; 84295; 84484; 85025; 85027; 85379; 85610; 85730; 86140; 87040; 87070; 87086; 87205; 87483; 89051; 92610; 93005; 93010; 94640; 94644; 94760; 96365; 96375; 97110; 97116; 97162; 97165; 97530; 97530-CQ; 99285-25; A9270; C1751; G0480; J0290; J0360; J0456; J0696; J1630; J1650; J2405; J2543; J2930; J3370; J7030; J7050; J7070; Q9967

== ENCOUNTER 2021-11-15 08:30 | Emergency (ER) | payer MEDICARE ==
[~2021-11-15] VITALS: Ht 152.4 cm; Wt 44.5 kg
[~2021-11-15 08:30] MED LIST changes: +CONSTULOSE10 GM/155 PO; +LOSA50 PO; +METO50 PO; +NALOXONE HCL4 MG; +QUET25 PO
[2021-11-15 09:40] LABS: BASOPHILS ABSOLUTE AUTO 0.02 K/mm3 (0.00-0.23); BASOPHILS PERCENT AUTO 0 % (0-2); EOSINOPHILS PERCENT AUTO 0 % (0-6); Hematocrit 36.3 % (33.0-51.0); IMMATURE GRAN ABSOLUTE AUTO 0.11 K/mm3 (0.00-0.10); IMMATURE GRAN PERCENT AUTO 1 % (0-1); LYMPHOCYTES ABSOLUTE AUTO 3.85 K/mm3 (0.84-5.20); LYMPHOCYTES PERCENT AUTO 18 % (21-46); MONOCYTES ABSOLUTE AUTO 2.05 K/mm3 (0.16-1.47); MONOCYTES PERCENT AUTO 9 % (4-13); Mean Corpuscular HGB 23.7 pg (26.0-34.0); Mean Corpuscular HGB Conc 30.3 g/dL (31.5-36.5); Mean Corpuscular Volume 78 fL (80-100); Mean Platelet Volume 9.4 fL (9.1-12.4); NEUTROPHILS ABSOLUTE AUTO 15.77 K/mm3 (1.96-9.15); NEUTROPHILS PERCENT AUTO 72 % (41-73); NRBC ABSOLUTE 0.03 K/mm3 (0.00-0.02); NRBC Auto 0.1 /100 WBC (0.0-0.2); Platelet Count 512 K/mm3 (150-400); RDW Coefficient Variation 19.7 % (11.7-14.2); RDW Standard Deviation 55.2 fL (35.1-46.3); Red Blood Cell Count 4.65 M/mm3 (3.80-5.20)
[2021-11-15 09:47] LABS: Alanine Aminotransfer (ALT/SGP 33 U/L (12-78); Albumin, Blood 3.5 g/dL (3.4-5.0); Alk Phos 86 U/L (50-136); Anion Gap 7 mmol/L (6-16); Aspartate Aminotrans (AST/SGOT 67 U/L (12-37); Bilirubin, Total 0.3 mg/dL (0.1-1.0); Blood Urea Nitrogen 17 mg/dL (8-24); Bun/Creatinine Ratio 30.4 (12.0-20.0); CO2, Blood 28 mmol/L (21-32); Calcium, Blood 9.2 mg/dL (8.5-10.1); Chloride, Blood 102 mmol/L (98-108); Creatinine, Blood 0.56 mg/dL (0.40-1.00); Globulin, Blood 3.6 g/dL (2.2-4.0); Glomerular Filtration Rate >60 (60-); Glucose, Blood 133 mg/dL (70-99); Potassium, Blood 4.3 mmol/L (3.5-5.5); Sodium, Blood 137 mmol/L (136-145); Total Protein, Blood 7.1 g/dL (6.4-8.2)
[2021-11-15] MEDS ORDERED: Xanax0.5 MG PO (11:21)
[2021-11-28] MEDS ORDERED: ATROVENT HFA12.9 GM INH (05:03)
== END 2021-11-15 12:16 | disposition home or self-care (01) ==
LOC: ER 08:30
PROVIDERS: Physician Assistant
DX: F41.9 Anxiety disorder, unspecified (principal); J40 Bronchitis, not specified as acute or chronic; I10 Essential (primary) hypertension; I48.91 Unspecified atrial fibrillation; Z87.891 Personal history of nicotine dependence; Z79.899 Other long term (current) drug therapy
CPT/HCPCS: 36415; 71045; 80053; 84484; 85025; 93005; 93010; 94644; 96374; 99285-25; A9270; J2930

== ENCOUNTER 2021-11-17 16:53 | Inpatient (IN) | payer MEDICARE ==
[~2021-11-17] VITALS: Ht 152.4 cm; Wt 54.4 kg
[~2021-11-17 16:53] MED LIST changes: +Xanax0.5 MG PO
[2021-11-17 17:46] LABS: BASOPHILS ABSOLUTE AUTO 0.02 K/mm3 (0.00-0.23); BASOPHILS PERCENT AUTO 0 % (0-2); EOSINOPHILS PERCENT AUTO 0 % (0-6); Hematocrit 40.6 % (33.0-51.0); Hemoglobin 12.1 g/dL (11.5-16.0); IMMATURE GRAN ABSOLUTE AUTO 0.07 K/mm3 (0.00-0.10); IMMATURE GRAN PERCENT AUTO 1 % (0-1); LYMPHOCYTES ABSOLUTE AUTO 1.97 K/mm3 (0.84-5.20); LYMPHOCYTES PERCENT AUTO 14 % (21-46); MONOCYTES ABSOLUTE AUTO 0.57 K/mm3 (0.16-1.47); MONOCYTES PERCENT AUTO 4 % (4-13); Mean Corpuscular HGB 23.3 pg (26.0-34.0); Mean Corpuscular HGB Conc 29.8 g/dL (31.5-36.5); Mean Corpuscular Volume 78 fL (80-100); Mean Platelet Volume 9.4 fL (9.1-12.4); NEUTROPHILS ABSOLUTE AUTO 11.24 K/mm3 (1.96-9.15); NEUTROPHILS PERCENT AUTO 81 % (41-73); Platelet Count 528 K/mm3 (150-400); RDW Coefficient Variation 19.7 % (11.7-14.2); RDW Standard Deviation 54.5 fL (35.1-46.3); White Blood Cell Count 13.87 K/mm3 (4.00-11.30)
[2021-11-17 18:11] LABS: Alanine Aminotransfer (ALT/SGP 35 U/L (12-78); Albumin, Blood 3.3 g/dL (3.4-5.0); Albumin/Globulin Ratio 0.9 (0.8-1.8); Alk Phos 89 U/L (50-136); Anion Gap 6 mmol/L (6-16); Aspartate Aminotrans (AST/SGOT 18 U/L (12-37); Bilirubin, Total 0.3 mg/dL (0.1-1.0); Blood Urea Nitrogen 19 mg/dL (8-24); Bun/Creatinine Ratio 24.5 (12.0-20.0); CO2, Blood 29 mmol/L (21-32); Calcium, Blood 9.1 mg/dL (8.5-10.1); Chloride, Blood 105 mmol/L (98-108); Creatinine, Blood 0.78 mg/dL (0.40-1.00); Globulin, Blood 3.8 g/dL (2.2-4.0); Glomerular Filtration Rate >60 (60-); Glucose, Blood 181 mg/dL (70-99); Potassium, Blood 4.3 mmol/L (3.5-5.5); Sodium, Blood 140 mmol/L (136-145); Total Protein, Blood 7.1 g/dL (6.4-8.2)
[2021-11-17 18:30] LABS: Influenza A, PCR NEGATIVE (NEGATIVE); Influenza B, PCR NEGATIVE (NEGATIVE); Resp Syncytial Virus, PCR NEGATIVE (NEGATIVE); SARS-Cov-2 (COVID-19) PCR, MMC NEGATIVE (NEGATIVE)
[2021-11-17] MEDS ORDERED: TRAZ50 PO (22:39)
[2021-11-17] MEDS ORDERED: TOPROL XL50 MG PO (22:40)
[2021-11-17] MEDS ORDERED: SYMBICORT 16010.2 GM INH (22:41)
--- NOTE | 2021-11-17 23:21 | NUR ---
ADMIT NOTE 66 YR OLD FEMALE ADMITTED TO FLOOR FROM THE ED WITH DX OF COPD EXACERBATION. ED RN VOICED RECENT ADMISIONS FOR SIMILALR ISSUES RE RESP - DIFFICULTIES WITH BREATHING. ORIENTED X 4. ORIENTED TO USE OF CALL LIGHT. HOB ELEVATED AT 45 DEGREES AND O2 PER NC. HR AND BP ELEVATED, ORDERED LOPRESSOR 50 MG PO, MED GIVEN. SEE MAR FOR DETAILS. CALL LIGHT IN REACH
[2021-11-18 00:34] LABS: BASOPHILS ABSOLUTE AUTO 0.01 K/mm3 (0.00-0.23); BASOPHILS PERCENT AUTO 0 % (0-2); EOSINOPHILS PERCENT AUTO 0 % (0-6); Hematocrit 34.7 % (33.0-51.0); Hemoglobin 10.8 g/dL (11.5-16.0); IMMATURE GRAN ABSOLUTE AUTO 0.12 K/mm3 (0.00-0.10); IMMATURE GRAN PERCENT AUTO 1 % (0-1); LYMPHOCYTES ABSOLUTE AUTO 0.36 K/mm3 (0.84-5.20); LYMPHOCYTES PERCENT AUTO 2 % (21-46); MONOCYTES ABSOLUTE AUTO 0.22 K/mm3 (0.16-1.47); MONOCYTES PERCENT AUTO 1 % (4-13); Mean Corpuscular HGB 23.7 pg (26.0-34.0); Mean Corpuscular HGB Conc 31.1 g/dL (31.5-36.5); Mean Corpuscular Volume 76 fL (80-100); Mean Platelet Volume 9.2 fL (9.1-12.4); NEUTROPHILS ABSOLUTE AUTO 16.61 K/mm3 (1.96-9.15); NEUTROPHILS PERCENT AUTO 96 % (41-73); Platelet Count 508 K/mm3 (150-400); RDW Coefficient Variation 19.3 % (11.7-14.2); RDW Standard Deviation 53.7 fL (35.1-46.3); Red Blood Cell Count 4.56 M/mm3 (3.80-5.20); White Blood Cell Count 17.32 K/mm3 (4.00-11.30)
[2021-11-18 02:04] LABS: Alanine Aminotransfer (ALT/SGP 30 U/L (12-78); Albumin, Blood 3.1 g/dL (3.4-5.0); Albumin/Globulin Ratio 0.9 (0.8-1.8); Alk Phos 80 U/L (50-136); Anion Gap 7 mmol/L (6-16); Aspartate Aminotrans (AST/SGOT 12 U/L (12-37); Bilirubin, Total 0.2 mg/dL (0.1-1.0); Blood Urea Nitrogen 19 mg/dL (8-24); Bun/Creatinine Ratio 28.7 (12.0-20.0); CO2, Blood 29 mmol/L (21-32); Calcium, Blood 8.8 mg/dL (8.5-10.1); Chloride, Blood 104 mmol/L (98-108); Creatinine, Blood 0.66 mg/dL (0.40-1.00); Globulin, Blood 3.6 g/dL (2.2-4.0); Glomerular Filtration Rate >60 (60-); Glucose, Blood 180 mg/dL (70-99); Potassium, Blood 3.7 mmol/L (3.5-5.5); Sodium, Blood 140 mmol/L (136-145); Total Protein, Blood 6.7 g/dL (6.4-8.2)
--- NOTE | 2021-11-18 04:18 | NUR ---
INVENTORY ANALYST SUMMARY WAS ADMITTED LAST EVENING WITH COPD EXACERBATION. ED RN REPORTED PT WAS SOB WITH ROUTINE AMBULATION, ETC. HX ASTHMA, COPD AND EMPHYSEMA. RECEIVED SEVERAL RESP TREATMENTS IN THE ED AND UPON ARRIVAL AT FLOOR, BP AND HR WERE ELEVATED (SEE DOC FLOW SHEETS). MEDS ADMINISTERED. VITAL SIGNS MORE STABLE. HAS BEEN RESTING WITH FEW INTERRUPTIONS SINCE. 3L/NC. HOB AT APPROX 60 DEGREES. CALL LIGHT IN REACH.
--- NOTE | 2021-11-18 18:46 | NUR ---
SHIFT SUMMARY PATIENT RESTING IN BED. A&O X4. UP TO BSC SBA. ON 2L NC, COUGH PRESENT. RECEIVED BREATHING TREATMENTS T/O SHIFT. SOB ON EXERTION. C/O HEADACHE AND ANXIETY. MEDICATED PER NOV. POOR APPETITE, PATIENTS STATES DUE TO HEADACHE. PRESSURE ULCER ON BUTTOCK. PATIENT STATED SHE HAS HAD IT SINCE SEPTEMBER AND SITS ON A DONUT. BED IN LOW POSITION WITH CALL LIGHT IN REACH. WILL CONTINUE TO MONITOR.
[2021-11-19 04:38] LABS: BASOPHILS ABSOLUTE AUTO 0.03 K/mm3 (0.00-0.23); BASOPHILS PERCENT AUTO 0 % (0-2); EOSINOPHILS PERCENT AUTO 0 % (0-6); Hematocrit 32.2 % (33.0-51.0); Hemoglobin 9.9 g/dL (11.5-16.0); IMMATURE GRAN ABSOLUTE AUTO 0.09 K/mm3 (0.00-0.10); IMMATURE GRAN PERCENT AUTO 1 % (0-1); LYMPHOCYTES ABSOLUTE AUTO 1.25 K/mm3 (0.84-5.20); LYMPHOCYTES PERCENT AUTO 7 % (21-46); MONOCYTES PERCENT AUTO 3 % (4-13); Mean Corpuscular HGB 23.7 pg (26.0-34.0); Mean Corpuscular HGB Conc 30.7 g/dL (31.5-36.5); Mean Corpuscular Volume 77 fL (80-100); Mean Platelet Volume 9.2 fL (9.1-12.4); NEUTROPHILS ABSOLUTE AUTO 17.19 K/mm3 (1.96-9.15); NEUTROPHILS PERCENT AUTO 90 % (41-73); Platelet Count 463 K/mm3 (150-400); RDW Coefficient Variation 19.2 % (11.7-14.2); RDW Standard Deviation 54.3 fL (35.1-46.3); Red Blood Cell Count 4.17 M/mm3 (3.80-5.20); White Blood Cell Count 19.06 K/mm3 (4.00-11.30)
--- NOTE | 2021-11-19 05:40 | NUR ---
Alert and oriemted x's 4. Medicated with xanax x's 1. Slept well through night. O2@2L via n/c, rhonchi/expiratory wheezing to bilateral lungs, respirations even and unlabored. Receives scheduled neb tx's. Tele: sinus rhythm. Supervision to BSC, steady gait. Safety maintained, call andres in reach.
--- NOTE | 2021-11-19 05:44 | NUR ---
Educated patient on importance and off loading buttocks, patient verbalized understanding. Able to turn and reposition self without difficulty in bed. Pillow appiled under buttocks. Patient will alternate her own pillow with regular pillow.
--- NOTE | 2021-11-19 18:43 | NUR ---
SHIFT SUMMARY PATIENT A&O, OCCASIONALLY FORGETFUL AND WILL REPEAT HERSELF. PATIENT INDEPEDENT UP TO BSC. ON 3L O2 VIA NC. EXP WHEEZING NOTED. RECEIVED BREATHING TREATMENTS T/O SHIFT. C/O HEADACHE AND ANXIETY. MEDICATED PER NOV. MEPILEX DRESSING APPLIED TO PRESSURE SORE ON BUTTOCK. PATIENT RESTING IN BED. WILL CONTINUE TO MONITOR.
[2021-11-20 05:10] LABS: BASOPHILS ABSOLUTE AUTO 0.02 K/mm3 (0.00-0.23); BASOPHILS PERCENT AUTO 0 % (0-2); EOSINOPHILS PERCENT AUTO 0 % (0-6); Hematocrit 35.1 % (33.0-51.0); Hemoglobin 10.6 g/dL (11.5-16.0); IMMATURE GRAN ABSOLUTE AUTO 0.09 K/mm3 (0.00-0.10); IMMATURE GRAN PERCENT AUTO 1 % (0-1); LYMPHOCYTES PERCENT AUTO 6 % (21-46); MONOCYTES PERCENT AUTO 3 % (4-13); Mean Corpuscular HGB 23.3 pg (26.0-34.0); Mean Corpuscular HGB Conc 30.2 g/dL (31.5-36.5); Mean Corpuscular Volume 77 fL (80-100); Mean Platelet Volume 9.5 fL (9.1-12.4); NEUTROPHILS ABSOLUTE AUTO 15.52 K/mm3 (1.96-9.15); NEUTROPHILS PERCENT AUTO 91 % (41-73); Platelet Count 500 K/mm3 (150-400); RDW Coefficient Variation 18.9 % (11.7-14.2); RDW Standard Deviation 53.2 fL (35.1-46.3); Red Blood Cell Count 4.54 M/mm3 (3.80-5.20); White Blood Cell Count 17.13 K/mm3 (4.00-11.30)
--- NOTE | 2021-11-20 06:25 | NUR ---
ALERT AND ORIENTED X'S 4. MEDICATED WITH XANAX X'S 2 DUE TO RESTLESSNESS/ ANXIETY, EFFECTIVE. O2@3L VIA N/C, RHONCHI/EXPIRATORY WHEEZING TO BILATERAL LUNGS. NEB GIVEN BY R/T, REMAINS ON SOLU-MEDROL. MEDICATED WITH TRAMADOL DUE TO C/O A HEADACHE THIS AM, EFFECTIVE RELIEF. CURRENTLY RESTING PEACEFULLY IN BED. SAFETY MAINTAINED, CALL BURNS IN REACH.
--- NOTE | 2021-11-20 17:58 | NUR ---
SHIFT SUMMARY A&OX4, OCCASIONALLY FORGETFUL AND REPEATS SELF AT TIMES. ON 3LNC WITH EXP WHEEZING. RECEIVING BREATHING TREATMENTS. C/O HEADACHE AND ANXIETY. MEDICATED PER NOV. INDEPENDENT TO BSC. CURRENTLY SITTING ON SIDE OF BED EATING DINNER. WILL CONTINUE TO MONITOR.
[2021-11-21 04:38] LABS: BASOPHILS ABSOLUTE AUTO 0.02 K/mm3 (0.00-0.23); BASOPHILS PERCENT AUTO 0 % (0-2); EOSINOPHILS ABSOLUTE AUTO 0.01 K/mm3 (0.00-0.68); EOSINOPHILS PERCENT AUTO 0 % (0-6); Hematocrit 33.7 % (33.0-51.0); Hemoglobin 10.3 g/dL (11.5-16.0); IMMATURE GRAN ABSOLUTE AUTO 0.09 K/mm3 (0.00-0.10); IMMATURE GRAN PERCENT AUTO 1 % (0-1); LYMPHOCYTES ABSOLUTE AUTO 2.86 K/mm3 (0.84-5.20); LYMPHOCYTES PERCENT AUTO 19 % (21-46); MONOCYTES PERCENT AUTO 11 % (4-13); Mean Corpuscular HGB 23.8 pg (26.0-34.0); Mean Corpuscular HGB Conc 30.6 g/dL (31.5-36.5); Mean Corpuscular Volume 78 fL (80-100); Mean Platelet Volume 9.4 fL (9.1-12.4); NEUTROPHILS ABSOLUTE AUTO 10.34 K/mm3 (1.96-9.15); NEUTROPHILS PERCENT AUTO 69 % (41-73); Platelet Count 473 K/mm3 (150-400); RDW Coefficient Variation 18.9 % (11.7-14.2); RDW Standard Deviation 54.3 fL (35.1-46.3); Red Blood Cell Count 4.33 M/mm3 (3.80-5.20); White Blood Cell Count 15.02 K/mm3 (4.00-11.30)
--- NOTE | 2021-11-21 06:22 | NUR ---
SHIFT SUMMARY PATIENT ALERT WITH SOME CONFUSION C/O PAIN X1 GENERAL PAIN REPOSITION AND PRN MEDICATION ADMIN WITH RELIEF DRESSING TO HER BUTTOCK INTACT DRY AND CLEAN
--- NOTE | 2021-11-21 17:34 | NUR ---
SUMMARY PT SITTING UP IN BED TALKING ON HER PHONE, PT HAS BEEN PLEASANT AND COOPERATIVE WITH CARE T/O THE DAY, UP INDEP TO BSC NEXT TO THE BED, PT HAD A SHOWER TODAY WITH MIN ASSIST, MARIS WELL, PT REMAINS ON 3L NC, WHICH IS HER BASELINE, PT HOPEFUL TO DC HOME TOMORROW, VSS, WILL CONT TO MONITOR
--- NOTE | 2021-11-22 04:09 | NUR ---
SHIFT SUMMARY PATIENT REMAIN PLEASANT C/O PAIN AND ANXIETY PRN ADM PER EMAR LUNGS SOUND WHEEZING CHRIS CONT NEB TREATMENT WITH RELIEF.TURNING AND REPOSTION Q 2 HRS ABLE TURN SELF PT ON TELE SINUS 76 ABLE TO TRANSFER SELF TO BEDSIDE COMODE.NO ACUTE CHANGE IN THIS SHIFT
[2021-11-22 04:38] LABS: BASOPHILS ABSOLUTE AUTO 0.03 K/mm3 (0.00-0.23); BASOPHILS PERCENT AUTO 0 % (0-2); EOSINOPHILS ABSOLUTE AUTO 0.03 K/mm3 (0.00-0.68); EOSINOPHILS PERCENT AUTO 0 % (0-6); IMMATURE GRAN ABSOLUTE AUTO 0.12 K/mm3 (0.00-0.10); IMMATURE GRAN PERCENT AUTO 1 % (0-1); LYMPHOCYTES ABSOLUTE AUTO 4.22 K/mm3 (0.84-5.20); LYMPHOCYTES PERCENT AUTO 36 % (21-46); MONOCYTES ABSOLUTE AUTO 1.56 K/mm3 (0.16-1.47); MONOCYTES PERCENT AUTO 13 % (4-13); Mean Corpuscular HGB 23.8 pg (26.0-34.0); Mean Corpuscular HGB Conc 30.3 g/dL (31.5-36.5); Mean Corpuscular Volume 78 fL (80-100); Mean Platelet Volume 9.2 fL (9.1-12.4); NEUTROPHILS ABSOLUTE AUTO 5.82 K/mm3 (1.96-9.15); NEUTROPHILS PERCENT AUTO 49 % (41-73); Platelet Count 428 K/mm3 (150-400); RDW Standard Deviation 54.6 fL (35.1-46.3); Red Blood Cell Count 4.21 M/mm3 (3.80-5.20); White Blood Cell Count 11.78 K/mm3 (4.00-11.30)
[2021-11-22 04:56] LABS: Anion Gap 4 mmol/L (6-16); Blood Urea Nitrogen 18 mg/dL (8-24); Bun/Creatinine Ratio 31.6 (12.0-20.0); CO2, Blood 33 mmol/L (21-32); Calcium, Blood 8.3 mg/dL (8.5-10.1); Chloride, Blood 104 mmol/L (98-108); Creatinine, Blood 0.57 mg/dL (0.40-1.00); Glomerular Filtration Rate >60 (60-); Glucose, Blood 97 mg/dL (70-99); Sodium, Blood 141 mmol/L (136-145)
[2021-11-22] MEDS ORDERED: AIRDUO DIGIHAL1 EAC2 INH (11:47)
[2021-11-22] MEDS ORDERED: LOSA50 PO (11:51)
[2021-11-22] MEDS ORDERED: ELIQUIS5 M2 PO (11:51)
[2021-11-22] MEDS ORDERED: PRED20 PO (11:52)
[2021-11-22] MEDS ORDERED: IMITREX50 M1 PO (11:53)
[2021-11-22] MEDS ORDERED: VISBIOME 112.51 EACH PO (11:54)
--- NOTE | 2021-11-22 13:43 | NUR ---
SUMMARY/DISCHARGE PT DISCHARGED TO HOME, PT VERBALIZED UNDERSTANDING OF DISCHARGE ORDERS REGARDING MEDS AND FOLLOW UP, PT WAITING FOR HER RIDE HOME
--- NOTE | 2021-11-22 14:13 | NUR ---
Met pt. in bed , she is fine , pt. said encouraged her and offered prayers.
--- NOTE | 2021-11-22 14:14 | NUR ---
Met pt in the room , she is fine ,encouraged pt. and offered prayers.
--- NOTE | 2021-11-22 14:15 | NUR ---
PT TAKEN OUT SAFELY VIA WHEELCHAIR
--- NOTE | 2021-11-22 20:34 | NUR ---
REVIEWED PT'S INFORMATION R/T PATIENT CALLED WITH QUESTIONS ABOUT THEIR DISCHARGE MEDS
== END 2021-11-22 14:01 | disposition home or self-care (01) | DRG 189 ==
LOC: ER 16:53 → MEDS 21:28
PROVIDERS: Emergency Medicine; Family Medicine; Student in an Organized Health Care Education/Training Program; ADMIT Internal Medicine
DX: J96.21 Acute and chronic respiratory failure with hypoxia (principal); B37.0 Candidal stomatitis; Z20.822 Contact with and (suspected) exposure to COVID-19; K74.60 Unspecified cirrhosis of liver; I10 Essential (primary) hypertension; I48.0 Paroxysmal atrial fibrillation; J43.9 Emphysema, unspecified; G47.00 Insomnia, unspecified; F41.9 Anxiety disorder, unspecified; J96.22 Acute and chronic respiratory failure with hypercapnia; R51.9 Headache, unspecified; R07.89 Other chest pain; D72.829 Elevated white blood cell count, unspecified; T38.0X5A Adverse effect of glucocorticoids and synthetic analogues, initial encounter; Z98.51 Tubal ligation status; Z90.49 Acquired absence of other specified parts of digestive tract; Z98.41 Cataract extraction status, right eye; Z98.42 Cataract extraction status, left eye; Z98.890 Other specified postprocedural states; Z87.891 Personal history of nicotine dependence; Z86.73 Personal history of transient ischemic attack (TIA), and cerebral infarction without residual deficits; Z88.8 Allergy status to other drugs, medicaments and biological substances; Z79.899 Other long term (current) drug therapy
CPT/HCPCS: 0241U; 36415; 71045; 80048; 80053; 84145; 84484; 85025; 93005; 93010; 94640; 94644; 94645; 94760; 96374; 96375; 99285-25; A9270; J0696; J1200; J1650; J1956; J2930; J7512

== ENCOUNTER 2021-11-24 17:52 | Emergency (ER) | payer MEDICARE ==
[~2021-11-24] VITALS: Ht 152.4 cm; Wt 49.9 kg
[~2021-11-24 17:52] MED LIST changes: +AIRDUO DIGIHAL1 EAC2 INH; +ELIQUIS5 M2 PO; +IMITREX50 M1 PO; +SYMBICORT 16010.2 GM INH; +TOPROL XL50 MG PO; +VISBIOME 112.51 EACH PO
[2021-11-24 18:43] LABS: BASOPHILS ABSOLUTE AUTO 0.01 K/mm3 (0.00-0.23); BASOPHILS PERCENT AUTO 0 % (0-2); EOSINOPHILS PERCENT AUTO 0 % (0-6); Hematocrit 36.8 % (33.0-51.0); Hemoglobin 11.1 g/dL (11.5-16.0); IMMATURE GRAN ABSOLUTE AUTO 0.11 K/mm3 (0.00-0.10); IMMATURE GRAN PERCENT AUTO 1 % (0-1); LYMPHOCYTES ABSOLUTE AUTO 1.32 K/mm3 (0.84-5.20); LYMPHOCYTES PERCENT AUTO 11 % (21-46); MONOCYTES ABSOLUTE AUTO 0.23 K/mm3 (0.16-1.47); MONOCYTES PERCENT AUTO 2 % (4-13); Mean Corpuscular HGB 23.6 pg (26.0-34.0); Mean Corpuscular HGB Conc 30.2 g/dL (31.5-36.5); Mean Corpuscular Volume 78 fL (80-100); Mean Platelet Volume 9.2 fL (9.1-12.4); NEUTROPHILS PERCENT AUTO 86 % (41-73); Platelet Count 390 K/mm3 (150-400); RDW Coefficient Variation 19.2 % (11.7-14.2); RDW Standard Deviation 54.2 fL (35.1-46.3); Red Blood Cell Count 4.71 M/mm3 (3.80-5.20); White Blood Cell Count 11.57 K/mm3 (4.00-11.30)
[2021-11-24 19:02] LABS: Alanine Aminotransfer (ALT/SGP 31 U/L (12-78); Albumin, Blood 3.2 g/dL (3.4-5.0); Alk Phos 67 U/L (50-136); Anion Gap 2 mmol/L (6-16); Aspartate Aminotrans (AST/SGOT 9 U/L (12-37); Bilirubin, Total 0.2 mg/dL (0.1-1.0); Blood Urea Nitrogen 14 mg/dL (8-24); Bun/Creatinine Ratio 22.5 (12.0-20.0); CO2, Blood 30 mmol/L (21-32); Calcium, Blood 8.7 mg/dL (8.5-10.1); Chloride, Blood 103 mmol/L (98-108); Creatinine, Blood 0.62 mg/dL (0.40-1.00); Globulin, Blood 3.3 g/dL (2.2-4.0); Glomerular Filtration Rate >60 (60-); Glucose, Blood 222 mg/dL (70-99); Potassium, Blood 4.2 mmol/L (3.5-5.5); Sodium, Blood 135 mmol/L (136-145); Total Protein, Blood 6.5 g/dL (6.4-8.2)
[2021-11-24] MEDS ORDERED: Ventolin5 MG/1 ML INH (19:51)
[2021-11-24] MEDS ORDERED: ATROVENT HFA12.9 GM INH (19:51)
[2021-11-24] MEDS ORDERED: ATIVAN0.5 MG PO (19:51)
== END 2021-11-24 20:50 | disposition home or self-care (01) ==
LOC: ER 17:52
PROVIDERS: Emergency Medicine
DX: J44.9 Chronic obstructive pulmonary disease, unspecified (principal); F41.9 Anxiety disorder, unspecified; Z88.5 Allergy status to narcotic agent; Z88.8 Allergy status to other drugs, medicaments and biological substances; Z88.6 Allergy status to analgesic agent; Z79.899 Other long term (current) drug therapy; Z79.52 Long term (current) use of systemic steroids; I10 Essential (primary) hypertension; I48.91 Unspecified atrial fibrillation; Z87.891 Personal history of nicotine dependence
CPT/HCPCS: 36415; 80053; 85025; 93005; 93010; 94640; 94664; A9270